=== PATIENT | male | born 1935 ===

== ENCOUNTER → 2023-05-26 09:06 | Outpatient (REF) | payer MEDICARE, OTHER, SELFPAY | LOC: RAD 09:06 | PROVIDERS: ATTENDING PHYSICIAN Internal Medicine; FAMILY PHYSICIAN Family Medicine | DX: K21.00 Gastro-esophageal reflux disease with esophagitis, without bleeding (principal) | CPT/HCPCS: 74246 ==

== ENCOUNTER 2023-08-02 12:05 | Inpatient (IN) | payer MEDICARE, OTHER, SELFPAY ==
[2023-08-02] VITALS (10 sets, daily range): BP systolic 123–159; BP diastolic 60–114; BMI 26.5; BMI 25.6
--- NOTE | 2023-08-02 09:34 | ED.GENMED ---
History of Present Illness
General
Chief Complaint: Chest Pain
Source: patient
Exam Limitations: none
Time Seen by Provider: 08/02/23 09:11
Nursing documentation reviewed up to this point in time: agreed with
Travel History
Have you had any contact with someone who has COVID-19?: No
Do you have any symptoms of coronavirus? Fever > 100 degrees, chills, cough, shortness of breath, sore throat, loss of taste or smell, muscle aches, or headache?: No
History of Present Illness
History of Present Illness:
88-year-old male with a history of Parkinson's, hypertension which is not being treated presents for symptoms of chest discomfort that feels like a tightness he describes that comes and goes spontaneously, not exertional over the last several weeks.
He said he did not want to worry anybody so he did not talk about it until today when he told his . He called his daughter, the daughter came over and gave him an 81 mg aspirin and then brought him. Patient says he has a 2 out of 10
discomfort currently. He is never had a blood clot previously. He is ambulatory
No pleuritic pain, cough, fever, chills, leg swelling, syncope, trouble sleeping
Past History
Past History
ED Past Medical History: HTN and Other (Parkinson's disease)
Patient has exhibited threatening behavior?: No
Social History
Tobacco: Non-smoker
Alcohol: None
Drug: None
Family History
Family History: Cancer (Mother had gastric cancer)
Review of Systems
Review of Systems
Allergies reviewed?: Yes
All Other Systems: Not applicable
Phy Exam
Physical Exam
Physical Exam:
GENERAL: Alert , in no apparent distress
EYE: pupils equal and reactive
NECK: Supple
ENT: o/p clr, mmm.
CARDIAC: Regular rate and rhythm . No appreciated murmur
LUNGS: Clear breath sounds bilaterally, no acute respiratory distress, no wheezes/rales/rhonchi
ABDOMEN: Soft, without focal tenderness, no r/g, no cvat, normal bowel sounds
NEUROLOGICAL: Alert and oriented, no focal neuro deficits, Parkinson's tremor
SKIN: Warm and dry, skin intact.
MUSCULOSKELETAL: No edema, well perfused. neg soumya's sign
PSYCH: Normal and appropriate interaction.
Scores
Heart Score for Chest Pain Patients
STEMI patient?: No
History: Slightly or Non-Suspicious
ECG: Nonspecific Repolarization
Age: >/= 65 years
Risk Factors: 1 or 2 Risk Factors
Troponin: </= Normal Limit
Heart Score for Chest Pain Patients: 4
Heart Score Risk: 20.3% MACE over next 6 weeks
Course
Orders/Labs/Results
Orders:
Orders
08/02/23 08:20
ECG [Electrocardiogram (*1)] Urgent
Reason for Study: Chest Pain
08/02/23 08:21
EKG- Treatment ONCE
08/02/23 09:33
CR Chest - 2 Views Urgent
Comment:
Reason For Exam: chest tightness
08/02/23 09:37
Basic Metabolic Panel Urgent
Complete Blood Count/With Diff Urgent
NT-proBNP Urgent
Troponin I Urgent
08/02/23 10:36
CMP [Comprehensive Metabolic Panel] Urgent
08/02/23 10:48
Pantoprazole [Protonix IV] 40 mg IV NOW STA
08/02/23 11:15
Pantoprazole 80 mg/100 ml Nss [Protonix] 80 mg in 100 ml IV Q10H
08/02/23 11:32
Admit/Transfer Patient As Directed
Co-Sign Provider:
Level of Care: Inpatient admission
Assign to:: Medical/Surgical
Physician / Group: Brandon
Diagnosis: symptomatic anemia
Reason for Hospitalization: symptomatic anemia
Expected length of stay greater than two midnights?: Yes
ELOS- Estimated Length of Stay in days: 4
I certify the patient meets the requirements for IP care: Yes
08/02/23 11:41
Code Status As Directed
Resuscitation Status: Do not resuscitate
Reached after discussion with pt or family/Healthcare POA: Yes
DNR Bracelet Application ONCE
08/02/23 13:19
0.9% Sodium Chloride 1000 ml [Nss] 1,000 ml IV 75 mls/hr
08/02/23 13:19
GASTROINTESTINAL CONSULT Routine
Consulting Provider: Ute Casillas
Was physician already notified: Yes
Reason for consult: GI bleed
Activity As Directed
Activity Level: Out of Bed-Early Mobility
INT (Intravenous Needle Therapy) As Directed
Comment: Place 2 IV catheters of the largest bore possible until stable
Orthostatic Vital Signs As Directed
Orthostatic VS Frequency: Now
Comment: then every four hours for twenty-four hours
Pneumatic Compression Sleeves As Directed
Type: Knee high
Vital Signs As Directed
Frequency: Per unit guidelines
DX Deep Vein Thrombosis Video Routine
08/02/23 13:49
Type And Crossmatch Urgent
H&H Q8H
08/02/23 14:00
Carbidopa/Levodopa Cr [Sinemet Cr 25-100 (Extended Release)] 2.5 tablet PO BID@0700,1400
08/02/23 20:00
Rivastigmine Tartrate [Exelon] 3 mg PO BID
08/02/23 21:00
Pantoprazole 80 mg/100 ml Nss [Protonix] 80 mg in 100 ml IV Q10H
08/02/23 21:19
H&H Q8H
08/02/23 22:00
Carbidopa/Levodopa Cr [Sinemet Cr 25-100 (Extended Release)] 1 tablet PO HS
Mirabegron Extended Release [Myrbetriq Extended Release] 50 mg PO HS
08/03/23 05:19
H&H Q8H
08/03/23 06:00
Basic Metabolic Panel IN AM
08/03/23 13:19
H&H Q8H
Abnormal Lab Results
08/02/23 08/02/23
09:37 10:36
WBC 11.2 H 10^3/uL
(4.8-10.8)
RBC 3.28 L 10^6/uL
(4.70-6.10)
Hgb 10.0 L g/dL
(13.0-18.0)
Hct 31.0 L %
(39.0-52.0)
MCV 94.5 H fL
(80.0-94.0)
MCHC 32.3 L g/dL
(33.0-37.0)
RDW 14.6 H %
(11.5-14.5)
Abs Immat Gran (auto) 0.1 H 10^3/uL
(0-0.05)
Absolute Lymphs (auto) 4.6 H 10^3/uL
(1.2-3.4)
Absolute Monos (auto) 0.9 H 10^3/uL
(0.1-0.6)
Sodium 132 L mmol/L 132 L mmol/L
(135-145) (135-145)
BUN 25 H mg/dl 23 H mg/dl
(9-20) (9-20)
Total Protein 6.0 L g/dl
(6.3-8.2)
08/02/23 09:37
08/02/23 10:36
Vital Signs
Initial and Last Documented VS:
Initial Vital Signs
Temp Pulse Resp BP Pulse Ox
97.8 F 57 20 136/60 100
08/02/23 08:34 08/02/23 08:34 08/02/23 08:34 08/02/23 08:34 08/02/23 08:34
Last Documented Vital Signs
Temp Pulse Resp BP Pulse Ox
97.8 F 56 20 124/63 100
08/02/23 08:34 08/02/23 13:30 08/02/23 08:34 08/02/23 13:00 08/02/23 13:30
MDM/Problems Addressed
Differential Diagnosis Includes:
gastritis, PUD, acs, chf
MDM/Problems Addressed:
88 y/o M with h/o parkinsons;
a few weeks or days of chest discomfort like spasms; a little sob with exertion but minimal; has been anemic as well, as outpatient; today unchagned RBBB ekg, trop 0.02, hg 10 down from 14 previously; heme POS black stool; getting protonix; has not
had EGD previously for this anemia; i suspect his chest discomfort is more GI than ACS.
pt willing to be admitted for GI consult, trop trending, protonix
*Critical Care Note
Total Time (30-74mins, 75-104mins- exclusive of procedures): Not Applicable
ED Attending Note
-
Portions of this chart may have been created with voice recognition software.� Occasional wrong word or��sound alike� substitutions may have occurred due to the inherent limitations of voice recognition software.
Discharge Plan
Departure
Patient Disposition: Admit
Date of Disposition: 08/02/23
Time of Disposition: 10:52
Admit to: Telemetry
Presentation/result/management discussed w/ accepting MD/DO: Hospitalist
Condition: Fair
Covid-19: Not Applicable
Discharge Problem:
Anemia
Interventions
Interventions:
*Risk Screen - Suicide Last Done: 08/02/23 10:00
*General Assessment Last Done: 08/02/23 10:00
*Neglect/Abuse Screening Last Done: 08/02/23 10:00
ED- Fall Risk Assessment Last Done: 08/02/23 10:00
*ED COVID-19 Vaccine History Last Done: 08/02/23 08:34
ED- Cardiac Assessment Last Done: 08/02/23 10:00
[2023-08-02 09:59] LABS: % Basophils 0.4 % (0-2); % Eosinophils 1.1 % (0-6); % Immature Granulocytes 0.5 % (0-0.5); % Lymphocytes 40.7 % (20.5-51.1); % Monocytes 8.1 % (1.7-9.3); % Neutrophils 49.2 % (42.2-75.2); Absolute Eosinophils 0.1 10^3/uL (0-0.7); Absolute Immature Granulocytes 0.1 10^3/uL (0-0.05); Absolute Lymphocytes 4.6 10^3/uL (1.2-3.4); Absolute Monocytes 0.9 10^3/uL (0.1-0.6); Absolute Neutrophils 5.5 10^3/uL (1.4-6.5); Mean Corp Hgb Conc. 32.3 g/dL (33.0-37.0); Mean Corpuscular Hgb 30.5 pg (27.0-31.0); Mean Corpuscular Volume 94.5 fL (80.0-94.0); Nucleated Red Blood Cells % 0 % (-); Platelet Count 272 10^3/uL (130-400); Red Blood Cell Count 3.28 10^6/uL (4.70-6.10); Red Cell Dist. Width 14.6 % (11.5-14.5); White Blood Cell Count 11.2 10^3/uL (4.8-10.8)
[2023-08-02 10:23] LABS: Blood Urea Nitrogen 25 mg/dl (9-20); Calcium 8.4 mg/dl (8.4-10.2); Carbon Dioxide 26 mmol/L (22-30); Chloride 103 mmol/L (98-107); Estimated Creatinine Clearance 48 ml/min; Glucose 90 mg/dl (70-99); Sodium 132 mmol/L (135-145); eGFR > 60.00
[2023-08-02 10:25] LABS: NT-proBNP 574 pg/ml; Troponin I 0.021 ng/ml
[2023-08-02] MEDS: PROTONIX 100 IV ×2 (11:18→21:09)
[2023-08-02 11:31] LABS: ALT (SGPT) < 10 U/L (0-50); AST (SGOT) 22 U/L (17-59); Albumin 3.6 g/dl (3.5-5.0); Alkaline Phosphatase 75 U/L (38-126); Blood Urea Nitrogen 23 mg/dl (9-20); Calcium 8.6 mg/dl (8.4-10.2); Carbon Dioxide 27 mmol/L (22-30); Chloride 102 mmol/L (98-107); Estimated Creatinine Clearance 53 ml/min; Glucose 92 mg/dl (70-99); Potassium 4.2 mmol/L (3.5-5.1); Sodium 132 mmol/L (135-145); Total Bilirubin 0.3 mg/dl (0.2-1.3); eGFR > 60.00
--- NOTE | 2023-08-02 11:45 | HPS.HSE ---
Family Physician
-
Family Physician: Jeff Salinas
Chief Complaint
-
Fatigue and chest discomfort
History of Present Illness
88-year-old male with history of Parkinson disease and no known coronary artery disease, brought into the hospital by the family for evaluation of feeling fatigue and tired and chest tightness which is intermittent, some degree of cognitive
dysfunction family at the bedside provide more information, admit the spasms started in upper abdomen and radiated to upper chest, No radiation or relieving aggravating factor, usually lasted very short Mild in nature worse when he eats some time
and associated with nausea and poor appetite but no vomiting, family does not think he pays attention to his bowel movement or colors, and the family does not know what color his stool.
Currently calm and comfortable, denies any particular complaint.
Workup in the ER showed hemoglobin trended down from more than 13 and today is 10 and his occult blood stool was positive, no NSAID intake.
No hematemesis, no fresh rectal bleed. No shortness of breath or sweating all fever or chill.
Medical History
Past Medical History
Past Medical History: Reports Other
Additional Past Medical History:
Past medical history Reviewed:
History of Parkinson disease
Urinary incontinence
History of lymphoma.
Social history: Lives at home with the family, no smoking alcohol use.
Family history: Reviewed and noncontributory
Past Surgical History: Reports Other
Social History
Alcohol: Other
Family History
Family History: Other
Allergies / Home Medications
Allergies reflects when Allergies were last updated in [facility].
Home Medications with original date entered in [facility]
Allergy/Medication List:
Allergies
Allergy/AdvReac Type Severity Reaction Status Date / Time
Penicillins Allergy Rash Verified 08/02/23 08:35
Home Medications
carbidopa ER 25 mg-levodopa 100 mg tablet,extended release 1 tab PO HS 08/02/23
carbidopa ER 25 mg-levodopa 100 mg tablet,extended release 2.5 tab PO BID@0700,1400 08/02/23
cholecalciferol (vitamin D3) 50 mcg (2,000 unit) tablet (Vitamin D3) 50 mcg PO DAILY 08/02/23
cyanocobalamin (vitamin B-12) 2,500 mcg sublingual tablet (Vitamin B-12) 2,500 mcg sublingual DAILY 08/02/23
esomeprazole magnesium 40 mg capsule,delayed release 40 mg PO DAILY 08/02/23
ferrous gluconate 324 mg (38 mg iron) tablet 324 mg PO DAILY 08/02/23
mirabegron 50 mg tablet,extended release 24 hr (Myrbetriq) 50 mg PO HS 08/02/23
rivastigmine tartrate 3 mg capsule 3 mg PO BID 08/02/23
Review of Systems
-
A 12 point ROS was completed and negative except as noted: Yes
Physical Exam
Vital Signs
Vital Signs
Temp Pulse Resp BP Pulse Ox
97.8 F 61 20 159/75 99
08/02/23 08:34 08/02/23 11:15 08/02/23 08:34 08/02/23 11:02 08/02/23 11:15
Physical exam:
General: Pale looking awake, alert and oriented x2, pleasantly confused, does not follows command fully, speaks in low tone of voice, not in distress.
HEENT: No active discharge, ecchymosis or bruising, moist lips, tongue and mucous membrane.
Eyes: No discharge or red conjunctiva, no nystagmus, pupils are reactive and equal
Neck:Supple, no JVD no bruit no goiter.
Respiratory: Normal AP contour and diameter, normal chest wall movement, normal respiratory effort, no respiratory distress,
Lungs: Good air entry bilaterally, no wheezing or rhonchi, no rales or crackles
Heart: S1, S2 regular, normal rate, no added sound.
Gastrointestinal: Positive bowel sounds, soft, nontender, no guarding or rigidity or organomegaly
Musculoskeletal: , no chest wall abnormality or tenderness. All joints and extremities have good range of motion, no muscle tenderness or any joint swelling or tenderness.
Extremities: No pitting edema, good peripheral pulses, good range of motion
Skin: Warm and dry, no ulceration, normal color.
Neurological: Awake, alert and oriented x2, good muscle tone, some degree of cognitive dysfunction appreciated, speaks in low tone voice
Physical Exam
General: Other
Laboratory Results
-
08/02/23 09:37
08/02/23 10:36
Laboratory Results
Total Bilirubin 0.3 mg/dl (0.2-1.3) 08/02/23 10:36
AST 22 U/L (17-59) 08/02/23 10:36
ALT < 10 U/L (0-50) 08/02/23 10:36
Alkaline Phosphatase 75 U/L (38-126) 08/02/23 10:36
Troponin I 0.021 ng/ml 08/02/23 09:37
Chest x-ray:No acute cardiopulmonary process.
EKG sinus bradycardia rate of, physical AV block SC 240, QTc 481, right bundle branch block with ventricular hypertrophy.
Left axis deviation, slow progression of the R wave in septal leads.
Data Reviewed
-
Diagnostic Radiology: Image Personally Visualized and interpreted, Discussed with Patient and Discussed with Family
Medical Tests (Nuc Med, Echo, EKG etc): Image Personally Visualized and interpreted, Discussed with Patient and Discussed with Family
Lab Data: Labs Reviewed by me and Discussed with Patient
Old Records: Reviewed
Impression/Plan
-
IMPRESSION:
88-year-old male brought to the hospital having lower chest and upper epigastric area pain and spasm lasting shorter., And hemoglobin trend down from 2 years ago from 10-4, occult blood stool was positive in the ER.
Epigastric and lower chest pain and spasm, possible upper GI related versus occult blood while cardiac causes may need to be considered to rule out the, doubt a pulm embolism as heart rate is low normal and there is no hypoxia.
GI bleed,
Blood loss anemia, likely from upper GI
Parkinson disease
Hyponatremia sodium 132
PLAN:
Full liquid diet and n.p.o. after midnight
GI consult
Monitor H&H
Protonix drip ordered
Defer further workup to GI
Check iron panel B12 and folic acid
Further age and comorbidities, coronary artery disease could be a possibility.
communication consultant
Follow cardiac enzyme
Cardiology consult.
hold aspirin because of GI bleed.
Continue medication, hold all vitamins supplement
All discussed with the patient and the family
CODE STATUS full code
DVT prophylaxis SCD
[2023-08-02 14:07] LABS: Hematocrit 29.1 % (39.0-52.0); Hemoglobin 9.2 g/dL (13.0-18.0)
[2023-08-02] MEDS: SINEMET CR 25-100 (EXTENDED RELEASE) 2.5 TABLET PO (14:12)
[2023-08-02] MEDS: NSS 1000 IV (14:12)
--- NOTE | 2023-08-02 15:48 | CON.CAR ---
Addendum entered and electronically signed by Rowdy Diaz MD 08/02/23 16:29:
I saw and examined the patient.
The STATION[employer]ER FIREMAN's note was reviewed and I agree with the note.
Comment: 88M with atypical CP, normal troponin, and unexciting EKG.
CP
- Anemia and heme positive stools -> no ASA
- check lipids in AM
- at most, I would consider risk stratifying stress test if his CP persists after anemia is corrected/GERD treated. Ideally, we could manage his symptoms - if cardiac - with medication.
Original Note:
Consultation
Consultation Request
Date/Time Consultation Requested: 08/02/238
Date/Time Consultation Performed: 08/02/230
Requesting Provider: Dr. Taylor
Performing Provider: Annette CRISOSTOMO for Dr. Diaz
Reason for Consultation: chest discomfort
Medical History
-
Chief Complaint: chest discomfort
History of Present Illness:
88 y/o male with Parkinson's disease, GERD, HTN (per family- not on meds), and HLD (per family- not on meds) who is here for intermittent chest/epigastric tightness and fatigue. He does seem to notice his symptoms more with walking. Seem to have
been around for about two weeks. EKG and trop unremarkable. He is seen to have anemia with heme+ stools and was started on IV PPI with GI consultation. He is in no distress at the time of my assessment.
Past Medical History
Past Medical History: HTN, Hypercholesterolemia and Other (Parkinson's disease)
Social History
Tobacco: Non-Smoker
Alcohol: None
Family History
Family History: Reviewed & Not Pertinent
Allergies / Home Medications
Allergy/AdvReac Type Severity Reaction Status Date / Time
Penicillins Allergy Rash Verified 08/02/23 08:35
�Medication �Instructions �Recorded �Confirmed �Type
carbidopa ER 25 mg-levodopa 100 mg 1 tab PO HS 08/02/23 08/02/23 History
tablet,extended release
carbidopa ER 25 mg-levodopa 100 mg 2.5 tab PO BID@0700,1400 08/02/23 08/02/23 History
tablet,extended release
cholecalciferol (vitamin D3) 50 50 mcg PO DAILY 08/02/23 08/02/23 History
mcg (2,000 unit) tablet (Vitamin
D3)
cyanocobalamin (vitamin B-12) 2,500 mcg sublingual DAILY 08/02/23 08/02/23 History
2,500 mcg sublingual tablet
(Vitamin B-12)
esomeprazole magnesium 40 mg 40 mg PO DAILY 08/02/23 08/02/23 History
capsule,delayed release
ferrous gluconate 324 mg (38 mg 324 mg PO DAILY 08/02/23 08/02/23 History
iron) tablet
mirabegron 50 mg tablet,extended 50 mg PO HS 08/02/23 08/02/23 History
release 24 hr (Myrbetriq)
rivastigmine tartrate 3 mg capsule 3 mg PO BID 08/02/23 08/02/23 History
Review of Systems
-
History Source: Patient
All other systems: Negative unless noted
Constitutional: Fatigue
Cardiac: Chest Pain
Physical Exam
Vital Signs
Temp Pulse Resp BP Pulse Ox
97.8 F 60 20 135/65 99
08/02/23 08:34 08/02/23 15:15 08/02/23 08:34 08/02/23 15:00 08/02/23 15:15
Lab Results
08/02/23 10:36
Troponin I 0.021 ng/ml 08/02/23 09:37
Aes-V-Dhxryzjauun Pept 574 pg/ml 08/02/23 09:37
Physical Exam
General: Well Developed, Well Nourished and No Apparent Distress
HEENT: Normocephalic and Anicteric
Respiratory: Clear and Non Labored Respirations
Cardiac: Regular Rhythm
Skin: Warm and Dry
Neuro: AO x 3
Psych: Calm
Impression / Plan
-
Anemia:
-heme+ stool
-GI consulted
-IV PPI started
-follow hgb
Chest discomfort:
-none currently
-first trop unremarkable; trend. EKG unremarkable.
-more likely GI etiology in this patient with worsening anemia, and heme + stool as above
Parkinson's disease:
-on medical therapy
GERD:
-on PPI as OP
HTN:
-diagnosis per son, but not on meds
-BP's okay
Data Reviewed
-
EKG: Tracing Personally Visualized and interpreted (SB with 1st degree AVB, RBBB)
Radiology: Report Reviewed by me (CXR no acute CP process)
Labs: Labs Reviewed by me
--- NOTE | 2023-08-02 15:59 | CON.GI ---
Consultation
-
Date/Time Consultation Requested: 08/02/2023
Date/Time Consultation Performed: 08/02/2023
Requesting Provider: Hospitalist
Performing Provider: Dr. Casillas
Reason for Consultation: anemia
Medical History
Chief Complaint / HPI
Chief Complaint: Fatigue and chest discomfort
History of Present Illness:
Abdirashid is an 88-year-old male with history of Parkinson's disease brought to the hospital by the family after patient has been feeling fatigue and having intermittent chest tightness. He describes the chest tightness is ongoing for couple weeks now
and generally occurs if he goes for long walks. If he does not go for a walk he does not feel it. He denies any association with eating or drinking but his son who is at bedside said after his walks is when he eats. The patient denies any
dysphagia to liquids or solids. Denies any heartburn and is taking the Nexium. His daughter is also on the phone who is a pharmacist and knows his medications well. In terms of anemia he has been seen by a ui lead developer, Dr. Sebastian Vila. The
family gave me some of his labs including a hemoglobin that was 10 and May, platelets 243 and white count 10. Patient and family deny any overt bleeding but he does not necessarily look at his stools. His last colonoscopy was over 10 years
ago. He has never had an upper endoscopy that they are aware of.
He denies any nausea. But apparently did have an episode of vomiting 1 night. Currently denies nausea vomiting. No abdominal pain. Denies constipation or diarrhea. He generally moves his bowels daily to every other day.
In the ER he has black heme positive stool and is also on iron.
Family deny any use of aspirin or NSAIDs
Past Medical History
Past Medical History: Other (Elevated PSA, benign tremor, lymphoma, Parkinson's)
Past Surgical History: Other (Left inguinal hernia repair with mesh in 2018)
Social History
Tobacco: Non-Smoker
Alcohol: None
Living: With Family
Employment: Retired
Family History
Family History: Cancer (Colon cancer in mother)
Allergies / Home Medications
Allergy/AdvReac Type Severity Reaction Status Date / Time
Penicillins Allergy Rash Verified 08/02/23 08:35
�Medication �Instructions �Recorded
carbidopa ER 25 mg-levodopa 100 mg 1 tab PO HS 08/02/23
tablet,extended release
carbidopa ER 25 mg-levodopa 100 mg 2.5 tab PO BID@0700,1400 08/02/23
tablet,extended release
cholecalciferol (vitamin D3) 50 50 mcg PO DAILY 08/02/23
mcg (2,000 unit) tablet (Vitamin
D3)
cyanocobalamin (vitamin B-12) 2,500 mcg sublingual DAILY 08/02/23
2,500 mcg sublingual tablet
(Vitamin B-12)
esomeprazole magnesium 40 mg 40 mg PO DAILY 08/02/23
capsule,delayed release
ferrous gluconate 324 mg (38 mg 324 mg PO DAILY 08/02/23
iron) tablet
mirabegron 50 mg tablet,extended 50 mg PO HS 08/02/23
release 24 hr (Myrbetriq)
rivastigmine tartrate 3 mg capsule 3 mg PO BID 08/02/23
Review of Systems
-
History Source: Patient and Family
Constitutional: Reports Fatigue
Respiratory: Reports No Symptoms
Abdomen/GI: Reports Pain (Squeezing lower chest pain)
Skin: Reports No Symptoms
Hematologic/Lymphatic: Reports No Symptoms
Vital Signs
Temp Pulse Resp BP Pulse Ox
97.8 F 60 20 135/65 99
08/02/23 08:34 08/02/23 15:15 08/02/23 08:34 08/02/23 15:00 08/02/23 15:15
Physical Exam
Exam
General: No Apparent Distress and Comfortable
HEENT: Anicteric
Respiratory: Clear
Cardiac: S1/S2
GI: Soft and Non Tender
Neuro: Awake and Alert
Psych: Calm
Results
WBC 11.2 10^3/uL (4.8-10.8) H 08/02/23 09:37
Hgb 9.2 g/dL (13.0-18.0) L 08/02/23 13:49
Hct 29.1 % (39.0-52.0) L 08/02/23 13:49
MCV 94.5 fL (80.0-94.0) H 08/02/23 09:37
Plt Count 272 10^3/uL (130-400) 08/02/23 09:37
Absolute Neuts (auto) 5.5 10^3/uL (1.4-6.5) 08/02/23 09:37
Sodium 132 mmol/L (135-145) L 08/02/23 10:36
Potassium 4.2 mmol/L (3.5-5.1) 08/02/23 10:36
Chloride 102 mmol/L (98-107) 08/02/23 10:36
Carbon Dioxide 27 mmol/L (22-30) 08/02/23 10:36
BUN 23 mg/dl (9-20) H 08/02/23 10:36
Creatinine 1.0 mg/dL (0.7-1.3) 08/02/23 10:36
Calcium 8.6 mg/dl (8.4-10.2) 08/02/23 10:36
Total Bilirubin 0.3 mg/dl (0.2-1.3) 08/02/23 10:36
AST 22 U/L (17-59) 08/02/23 10:36
ALT < 10 U/L (0-50) 08/02/23 10:36
Alkaline Phosphatase 75 U/L (38-126) 08/02/23 10:36
Diagnostic Image Results:
Chest x-ray 08/02/2023: No acute cardiopulmonary process
Upper GI series 05/26/2023: Half-inch barium pills initially stuck in the vallecula and precipitated no symptoms. Barium pill passed normally through the esophagus without significant delay. There was delay in initiation of swallow and there were
tertiary contractions of the esophagus during swallow. No significant reflux. No stricture, web, neoplasm, diverticulum, ulceration or inflammatory change
Prior GI Procedures: No GI procedures at [facility]
EGD: Never
Colonoscopy: Patient and family state it was over a decade ago
Assessment / Plan
-
Abdirashid is an 88-year-old male with history of questionable lymphoma, Parkinson's disease on Parkinson's medications who presents with intermittent chest discomfort with walking and macrocytic anemia. GI was consulted because he had black formed heme
positive stools in the emergency room with anemia.
# More macrocytic anemia -patient is on B12 at home and has been followed by hematology
-- I have ordered to obtain records from Dr. Sebastian Vila [phone]
-- I was able to review some of the labs over the phone with his daughter Bianca Perez [phone] (she is a pharmacist)
-- Patient has been on iron, no GI workup has been done other than a visit with Dr. Lieberman back in May
-- Patient's hemoglobin was 10 in May 2023 (saw from patient portal on phone)
# Intermittent squeezing chest discomfort with walking -troponins are normal, cardiology was not impressed with any cardiac etiology
-- Squeezing chest discomfort can sometimes be seen with tertiary contractions of the esophagus which are often prominent in patients with Parkinson's disease
-- Will proceed to endoscopy tomorrow in the setting of both his chest discomfort, black heme positive stools
I had a long conversation with the patient and both of his children. We will get hematology records, but go ahead and proceed with EGD tomorrow.
I did review the cardiac note and workup.
Total Time Spent with Patient (in minutes): 45
Data Reviewed
-
Radiology: Report Reviewed by me
Old Records: Reviewed
-
-
Thank you for consultation and allowing me to participate in the patient's care. Please call the application support administrator GI physician during the after hours with any questions or concerns.
--- NOTE | 2023-08-02 16:30 | PTCARENOTE ---
Received pt from ER. Pt awake,alert and oriented x 2-3. Confused at times, garbled speech, pt primary language ecuadorean but understands latvian. Pt has no c/o chest pain at this time. VSS, 97% on RA. Pt NSR, 1degree AV block, BBBc on tele.Family at
bedside, bed alarm placed for safety, pt has had falls at home. Pt oriented to room, call elizondo within reach, HOB elevated, plan of care ongoing.
[2023-08-02 16:54] LABS: Troponin I 0.023 ng/ml
[2023-08-02 19:03] LABS: Vitamin B12 733 pg/ml (239-931)
[2023-08-02] MEDS: EXELON 3 MG PO (21:05)
[2023-08-02] MEDS: SINEMET CR 25-100 (EXTENDED RELEASE) 1 TABLET PO (21:06)
[2023-08-02] MEDS: MYRBETRIQ EXTENDED RELEASE 50 MG PO (21:07)
[2023-08-02 21:52] LABS: Hematocrit 28.7 % (39.0-52.0); Hemoglobin 9.4 g/dL (13.0-18.0)
[2023-08-03] VITALS (11 sets, daily range): BP systolic 18–165; BP diastolic 55–85; PULSE 59–67
[2023-08-03 00:23] LABS: Troponin I 0.022 ng/ml
[2023-08-03] MEDS: NSS 1000 IV (03:01)
[2023-08-03] MEDS: SINEMET CR 25-100 (EXTENDED RELEASE) 2.5 TABLET PO ×2 (06:01→14:50)
[2023-08-03] MEDS: PROTONIX 100 IV ×2 (06:01→18:37)
[2023-08-03 06:09] LABS: Hematocrit 29.1 % (39.0-52.0); Hemoglobin 9.2 g/dL (13.0-18.0)
[2023-08-03 06:30] LABS: Troponin I 0.026 ng/ml
[2023-08-03 06:44] LABS: Blood Urea Nitrogen 18 mg/dl (9-20); Calcium 8.4 mg/dl (8.4-10.2); Carbon Dioxide 27 mmol/L (22-30); Chloride 106 mmol/L (98-107); Estimated Creatinine Clearance 53 ml/min; Glucose 92 mg/dl (70-99); Iron 32 ug/dl (49-181); Potassium 4.1 mmol/L (3.5-5.1); Sodium 134 mmol/L (135-145); eGFR > 60.00
[2023-08-03 06:54] LABS: Percent Saturation 10 % (20-50); Total Iron Binding Capacity 297 ug/dl (261-462)
[2023-08-03 07:06] LABS: TSH 2.79 uIU/ml (0.47-4.68)
[2023-08-03 07:10] LABS: Ferritin 12.2 ng/ml (17.9-464.0)
[2023-08-03 07:42] LABS: Folate 8.8 ng/ml (2.76-20); Vitamin B12 757 pg/ml (239-931)
--- NOTE | 2023-08-03 11:10 | W.PN.CD ---
Addendum entered and electronically signed by Rowdy Diaz MD 08/03/23 15:06:
I saw and examined the patient.
The CAR SALES REPRESENTATIVE's note was reviewed and I agree with the note.
Comment: 88M with chest pain. EKG OK and troponin unexciting. ECHO is reassuring. GI findings noted
- no further cardiac workup is anticipated and I will sign off
- Follow up with us prn
Original Note:
Today's Communication / Plan
-
-Echo today
-checking lipids
-GI work-up as planned
Impression / Plan
-
Assessment/Plan: 88 y/o male with Parkinson's disease, GERD, HTN (per family- not on meds), and HLD (per family- not on meds) who presented with chest discomfort. EKG and trop unremarkable. Anemia and heme+ stool noted and he was placed on PPI, and
is now s/p endoscopy. He is seen to have anemia with heme+ stools and was started on IV PPI with GI consultation. He is in no distress at the time of my assessment.
Anemia, heme + stool:
-hgb stabilized- follow
-GI consulted and now s/p endoscopy with findings as follows: small hiatal hernia, atrophic, granular, nodular and texture changed mucosa in the antrum- biopsied. Partially obstructing gastric ulcer with an adherent clot (biopsied), the ulcer and
inflammation was practically obstructing and was difficult to traverse into the duodenum. The bulb was involved as well. Concern for neoplasm- Multiple biopsies taken. CT chest/abdomen/pelvis recommended.
-on PPI IV
Chest discomfort:
-none currently
-EKG, trop unremarkable
-more likely GI etiology related to above
-checking echo
-no ASA at this time with above issues. Added lipids for AM.
Parkinson's disease:
-on medical therapy
GERD:
-on PPI as OP- IV here
HTN:
-diagnosis per son, but not on meds
-BP's okay
Physical Exam
Vital Signs/Labs
Vital Signs
Temp Pulse Resp BP Pulse Ox
97.5 F 65 12 165/83 98
08/03/23 10:30 08/03/23 10:30 08/03/23 10:30 08/03/23 10:30 08/03/23 10:30
08/02/23 08/03/23 08/04/23
06:59 06:59 06:59
Actual Weight 80.796 kg
08/03/23 13:19
08/03/23 05:54
TSH 2.79 uIU/ml (0.47-4.68) 08/03/23 05:54
08/02/23
09:37
Ptp-W-Xnwthsembvr Pept 574
LAB Results
08/02/23 08/02/23 08/02/23
09:37 16:22 23:52
Troponin I 0.021 0.023 0.022
08/03/23
05:54
Troponin I 0.026
Physical Exam
Constitutional: No acute distress
EENT: Anicteric
Cardiovascular: Rhythm & rate is regular
Respiratory: Respiratory effort normal and Lungs clear to auscul.
GI: Soft, Non tender and Normal bowel sounds
Neuro/Psych: Alert and Oriented
Other: Skin (warm and dry)
Data Reviewed
-
Date of Service: August 03, 2023
EKG: Other (SR)
[2023-08-03] MEDS: OMNIPAQUE 50 ML PO (11:14)
[2023-08-03] MEDS: EXELON 3 MG PO ×2 (11:14→19:57)
--- NOTE | 2023-08-03 14:14 | W.PN.HOSP.TC ---
Today's Communication/Plan
-
All discussed with the patient and his son at the bedside
Discussed with the nurse
Assessment / Plan
Assessment / Plan
Physical exam:
General: Pale looking awake, alert and oriented x2, pleasantly confused, does not follows command fully, speaks in low tone of voice, not in distress.
HEENT: No active discharge, ecchymosis or bruising, moist lips, tongue and mucous membrane.
Eyes: No discharge or red conjunctiva, no nystagmus, pupils are reactive and equal
Neck:Supple, no JVD no bruit no goiter.
Respiratory: Normal AP contour and diameter, normal chest wall movement, normal respiratory effort, no respiratory distress,
Lungs: Good air entry bilaterally, no wheezing or rhonchi, no rales or crackles
Heart: S1, S2 regular, normal rate, no added sound.
Gastrointestinal: Positive bowel sounds, soft, nontender, no guarding or rigidity or organomegaly
Musculoskeletal: , no chest wall abnormality or tenderness. All joints and extremities have good range of motion, no muscle tenderness or any joint swelling or tenderness.
Extremities: No pitting edema, good peripheral pulses, good range of motion
Skin: Warm and dry, no ulceration, normal color.
Neurological: Awake, alert and oriented x2, good muscle tone, some degree of cognitive dysfunction appreciated, speaks in low tone voice
Assessment and plan:
88-year-old male brought to the hospital having lower chest and upper epigastric area pain and spasm lasting shorter., And hemoglobin trend down from 2 years ago from 10-4, occult blood stool was positive in the ER.
Epigastric and lower chest pain and spasm, possible upper GI related, likely secondary to gastric ulcer disease with GI concerning for malignancy, doubted cardiac or pulmonary causes.
Hypoxia.
GI bleed, likely secondary to partial obstructing ulcer disease. Endoscopy
Partially obstructing gastric ulcer, seen on EGD concerning for malignancy
Blood loss anemia, likely from upper GI, according to GI is hemoglobin around May was 12 and 2
Hemoglobin trending down
Iron deficiency
Parkinson disease
Hyponatremia sodium 132
Plans
Status post EGD, report is reviewed
GI input appreciated
Continue protonic drips
Monitor H&H
Start IV iron for now as patient needs IV iron regularly, B12 and folic acid in a good range.
Finding discussed with the family by GI and by me.
Cardiology input appreciated
hold aspirin because of GI bleed.
Continue medication, hold all vitamins supplement
Continue Parkinson medication.
Recheck labs.
All discussed with the patient and the family
CODE STATUS full code
DVT prophylaxis SCD
Anticipated Discharge: > 48 hours
Subjective/Interval History
-
Date of Service: August 03, 2023
Objective Data
-
Labs:
Laboratory Results
08/03/23 08/03/23
05:54 13:19
Hgb 9.2 L Cancelled
Hct 29.1 L Cancelled
Sodium 134 L
Potassium 4.1
Chloride 106
Carbon Dioxide 27
BUN 18
Creatinine 1.0
Glucose 92
Calcium 8.4
Vital Signs:
Vital Signs
Temp Pulse Resp BP Pulse Ox
97.5 F 59 18 158/78 97
08/03/23 11:53 08/03/23 11:53 08/03/23 11:53 08/03/23 11:53 08/03/23 11:53
I&O
08/02/23 08/03/23 08/04/23
07:59 07:59 07:59
Intake Total 960 / 960
Output Total 1680 / 1680
Balance -720 / -720
--- NOTE | 2023-08-03 15:00 | PTCARENOTE ---
Pt having periods of confusion, anxiety and slight agitation. Reoriented to surroundings, pt does better with family at bedside, VSS provider made aware, bed alarm in place, call elizondo within reach, plan of care ongoing.
[2023-08-03] MEDS: FERRLECIT 110 MG IV (15:17)
--- NOTE | 2023-08-03 16:37 | CM ---
Alert awake [place] oriented patient who lives with his [place] and 24 hour nurse healthcare manager.Spoke with son at [facility].They live in a condo with no steps and bed and bathroom on first floor.He is assisted in all activities of daily living.He was offered VN
Son will let CM know if VN needed
Sandra VN hx / No SNF history
Pharmacy [facility]
PCP DR Salinas
PLAN Home with possible VN if requested
[2023-08-03] MEDS: SINEMET CR 25-100 (EXTENDED RELEASE) 1 TABLET PO (19:57)
[2023-08-03] MEDS: MYRBETRIQ EXTENDED RELEASE 50 MG PO (19:58)
[2023-08-04] VITALS (8 sets, daily range): BP systolic 83–146; BP diastolic 40–74; PULSE 65–74; O2SAT 100; BMI 25.4
[2023-08-04] MEDS: PROTONIX 100 IV ×2 (04:51→12:28)
[2023-08-04] MEDS: SINEMET CR 25-100 (EXTENDED RELEASE) 2.5 TABLET PO ×2 (06:04→13:18)
[2023-08-04] MEDS: EXELON 3 MG PO (08:17)
[2023-08-04 08:30] LABS: HDL Cholesterol 47 mg/dl; LDL Cholesterol, Calculated 104 mg/dl; Total Cholesterol 167 mg/dl (50-199); Triglyceride 84 mg/dl (10-149); Very Low Density Lipoprotein 16 mg/dl (0-30)
--- NOTE | 2023-08-04 08:50 | W.PN.GI.CBS2 ---
Addendum entered and electronically signed by Amalia Escalante Do, MD 08/04/23 13:37:
I saw and examined the patient.
The BOX SEALING MACHINE CATCHER's note was reviewed and I agree with the note.
Comment: Ate 100% of lunch per RN. Denies abd pain. Exam VSS NTTP mildly confused but conversant. Labs reviewed only lipid panel no Hbg.
Recommendations:
- C/w Protonix gtt x72hrs
- H/H ordered for tomorrow
- Await results of EGD path results. Dr Casillas with call with results
- Our office will arrange OP FU in 3-[address] Lieberman.
- Please d/c on Protonix 40mg BID x12 wks and plans for repeat EGD in 12 wks to document ulcer healing
- Avoid all nsaids
GI will sign off please call with questions. Daughter updated bedside
Original Note:
Today's Communication / Plan
-
Await EGD biopsy
CT as noted
despite difficulty with passing scope patient is tolerating diet and eating entire breakfast this am
will send message to office to arrange GI follow as will need repeat EGD to reassess ulcer
cont diet
remains on PPI GTT
cont IV iron
Assessment / Plan
-
Abdirashid is an 88-year-old male with history of questionable lymphoma, Parkinson's disease on Parkinson's medications who presents with intermittent chest discomfort with walking and macrocytic anemia. GI was consulted because he had black formed heme
positive stools in the emergency room with anemia. EGD with concern for partially obstructing gastric ulcer with clot and inflammation with difficulty to traverse duodenum concern for neoplasm.
per Dr. Casillas
-- awaiting records from Dr. Sebastian Vila [phone]
--labs reviewed with daughter Bianca Perez [phone] (she is a pharmacist)
-- Patient has been on iron, no GI workup has been done other than a visit with Dr. Bohning back in May prior to admission
-- Patient's hemoglobin was 10 in May 2023 (saw from patient portal on phone)
08/02 EGD- Small hiatal hernia. - Atrophic, granular, nodular and texture changed mucosa in the antrum. Biopsied.
- Partially obstructing gastric ulcer with an adherent clot (Collin Class IIb. Biopsied - The ulcer and inflammation was practically
obstructing and was difficult to traverse into the duodenum. The bulb was involved as well. Concern for
neoplasm. - Multiple biopsies taken- The 2nd portion of the duodenum was normal
08/02 CT a/p
1. Gastric evaluation somewhat limited by underdistention. There is abnormal concentric mural thickening at the level of the duodenal bulb. As above, very small focus of enteric contrast within the wall on delayed phase images, suspicious for
ulceration. Neoplastic etiology cannot be excluded by this examination. No other gastric or duodenal lesion is identified at CT.
2. Mild cardiomegaly.
3. Hepatic fatty infiltration. Small benign hepatic hemangioma and probable hemangiomas as above.
-macrocytic anemia with current B12 supplementation follows with heme OP follow
-black heme + stools
- partially obstructing gastric ulcer with clot and inflammation with difficulty to traverse duodenum concern for neoplasm
-CT abnormal concentric mural thickening of duodenal bulb with concern for ulcer neoplasm not excluded on study
-chest discomfort
PLAN:
Await EGD biopsy
CT as noted
despite difficulty with passing scope patient is tolerating diet and eating entire breakfast this am
will send message to office to arrange GI follow as will need repeat EGD to reassess ulcer
cont diet
remains on PPI GTT
cont IV iron
Subjective
Subjective
Date of Service: August 04, 2023
low residue diet, no stools
Objective
Data Reviewed
Laboratory Data:
Laboratory Results
08/03/23 13:19
08/03/23 05:54
Laboratory Results
Total Bilirubin 0.3 mg/dl (0.2-1.3) 08/02/23 10:36
AST 22 U/L (17-59) 08/02/23 10:36
ALT < 10 U/L (0-50) 08/02/23 10:36
Alkaline Phosphatase 75 U/L (38-126) 08/02/23 10:36
Vital Signs and I&O:
Vital Signs
Temp Pulse Resp BP Pulse Ox
97.9 F 65 16 146/74 95
08/04/23 08:36 08/04/23 08:36 08/04/23 08:36 08/04/23 08:36 08/04/23 08:36
I&O
08/03/23 08/04/23 08/05/23
06:59 06:59 06:59
Intake Total 960 / 960 1790 / 1790
Output Total 1680 / 1680 1570 / 1570
Balance -720 / -720 220 / 220
Physical Exam
Physical Exam
HEENT: Anicteric and Moist mucous membranes
Cardiology: Normal Sinus Rhythm
Pulmonary: Clear
GI: Soft, Distended (mild distention ) and Non Tender
Extremities: No Edema
Neuro: Other (answering most question)
--- NOTE | 2023-08-04 11:02 | CM ---
Requested PT OT order from .
Son supportive.
He has 24 hour care givers for him and his in home.
Offered VN to son for dad.
son will get back to if VN wanted at md.
PLAN Home with possible VN if requested
[2023-08-04] MEDS: FERRLECIT 110 MG IV (12:16)
--- NOTE | 2023-08-04 13:38 | W.PN.UPDATE ---
Update Note
Progress Note Update
Billing purposes
--- NOTE | 2023-08-04 14:18 | PN.CDI ---
CDI
- -
CDI:
Physician Documentation Request
Admit Date: 08/02/23 12:05
Dear Doctor Brandon,
Please review the following and provide your response in the progress notes.
Clinical Indicators:
Pt admitted with GI bleed/ Anemia 2/2 gastric ulcer possibly gastric malignancy found on EGD
Documented per ED records, ' hg 10 down from 14 previously; heme POS black stool...'
Documented throughout the record,' Blood loss anemia, likely from upper GI, according to GI is hemoglobin around May was 12 and 2 Hemoglobin trending down...'
Clarify which of the following accurately represents the acuity of the ( Blood loss anemia).
Acute
Acute on Chronic
Chronic
Other
Use of terms such as suspected, likely, concern for, or probable (associated with a specific diagnosis that is being evaluated, monitored, or treated as if it exists) are acceptable and can be coded in the inpatient setting, when documented at the
time of discharge.
Thank you,
Karuna Pate RN
CDI Specialist
[place] [facility]
Please use your independent medical judgment in providing your response.
--- NOTE | 2023-08-04 14:21 | PN.CDI ---
CDI
- -
CDI:
Physician Documentation Request
Admit Date: 08/02/23 12:05
Dear Doctor Sonja,
Please review the following and provide your response in the progress notes.
Clinical Indicators:
Pt admitted with GI bleed/ Anemia 2/2 gastric ulcer possibly gastric malignancy found on EGD
Documented per EGD report, ' One partially obstructing (about 80% obstructed) oozing cratered gastric ulcer of significant severity with an adherent clot (Collin Class IIb) was found in the prepyloric region of the stomach and at the
pylorus.The lesion was 30 mm in largest dimension. ...Chronic or unspecified gastric ulcer with hemorrhage...'
Clarify which of the following accurately represents the suspected acuity of the Gastric ulcer
Acute
Chronic
Acute on Chronic
Other
Use of terms such as suspected, likely, concern for, or probable (associated with a specific diagnosis that is being evaluated, monitored, or treated as if it exists) are acceptable and can be coded in the inpatient setting, when documented at the
time of discharge.
Thank you,
Karuna Pate RN
CDI Specialist
[place] [facility]
Please use your independent medical judgment in providing your response.
--- NOTE | 2023-08-04 15:49 | W.PN.UPDATE ---
Update Note
Progress Note Update
Path confirms gastric ca
Above d/w patient's son Earl via phone and Dr Young. Protonix gtt stopped
Family wants to take him home today which is reasonable. I personally messaged oncology to expediate OP follow up
Ok to d/c on protonix daily basis.
--- NOTE | 2023-08-04 17:31 | W.DS.TRANS ---
DC Summary - Objects Conservator
-
Discharge Instructions:
Discharge Diagnosis/Procedures Gastric carcinoma.
Anemia
Diet Low Residue
Instructions:
Stand-Alone Forms:
Changes to Home Medications: No
Discharge Medications:
DC Medications w/original date entered in How do you roll?
carbidopa ER 25 mg-levodopa 100 mg tablet,extended release 1 tab PO HS Neurological Condition 08/02/23
carbidopa ER 25 mg-levodopa 100 mg tablet,extended release 2.5 tab PO BID@0700,1400 Neurological Condition 08/02/23
cholecalciferol (vitamin D3) 50 mcg (2,000 unit) tablet (Vitamin D3) 50 mcg PO DAILY Supplement 08/02/23
cyanocobalamin (vitamin B-12) 2,500 mcg sublingual tablet (Vitamin B-12) 2,500 mcg sublingual DAILY Supplement 08/02/23
esomeprazole magnesium 40 mg capsule,delayed release 40 mg PO DAILY Gastrointestinal Issue 08/02/23
ferrous gluconate 324 mg (38 mg iron) tablet 324 mg PO DAILY Supplement 08/02/23
mirabegron 50 mg tablet,extended release 24 hr (Myrbetriq) 50 mg PO HS Urinary Issue 08/02/23
rivastigmine tartrate 3 mg capsule 3 mg PO BID Neurological Condition 08/02/23
Home Medication Changes
Pending Results: No
--- NOTE | 2023-08-07 11:25 | W.PN.UPDATE ---
Update Note
Progress Note Update
for CDI question - I am unable to determine the chronicity of the ulcer at the time of the endoscopy since he has never had an EGD before. So, 'unknown chronicity'
== END 2023-08-04 18:57 | disposition home or self-care (01) | DRG 374 ==
LOC: 4 EAST ACU 12:05
PROVIDERS: Emergency Medicine; Nurse Practitioner; Physician Assistant; ADMITTING PHYSICIAN Internal Medicine; ATTENDING PHYSICIAN Internal Medicine; CONSULT PHYSICIAN Internal Medicine; CONSULT PHYSICIAN Internal Medicine Cardiovascular Disease; EMERGENCY PHYSICIAN Student in an Organized Health Care Education/Training Program; FAMILY PHYSICIAN Family Medicine
PROC: 0DB68ZX Excision of Stomach, Via Natural or Artificial Opening Endoscopic, Diagnostic (ICD-10-PCS; 2023-08-03)
DX: C16.4 Malignant neoplasm of pylorus (principal); K25.4 Chronic or unspecified gastric ulcer with hemorrhage; E87.1 Hypo-osmolality and hyponatremia; D62 Acute posthemorrhagic anemia; K44.9 Diaphragmatic hernia without obstruction or gangrene; G20.A1 Parkinson's disease without dyskinesia, without mention of fluctuations; I10 Essential (primary) hypertension; K21.9 Gastro-esophageal reflux disease without esophagitis; R07.89 Other chest pain; E78.00 Pure hypercholesterolemia, unspecified; C88.0 Waldenstrom macroglobulinemia; D53.9 Nutritional anemia, unspecified; Z66 Do not resuscitate; Z79.899 Other long term (current) drug therapy; Z85.72 Personal history of non-Hodgkin lymphomas
CPT/HCPCS: 88305; 71046; 71260; 74160; 80048; 80053; 80061; 82607; 82728; 82746; 83540; 83550; 83880; 84443; 84484; 85014; 85018; 85025; 86850; 86900; 86901; 88342; 88360; 93005; 93306; 96365; 96366; 96376; 97162; 97166; 99285; J2916; Q9967

== ENCOUNTER 2023-11-24 16:15 | Inpatient (IN) | payer MEDICARE, OTHER, SELFPAY ==
[2023-11-24] VITALS (13 sets, daily range): BP systolic 98–159; BP diastolic 63–83; BMI 25.6
[2023-11-24 10:47] LABS: % Basophils 0.3 % (0-2); % Eosinophils 0.2 % (0-6); % Immature Granulocytes 0.4 % (0-0.5); % Lymphocytes 25.2 % (20.5-51.1); % Monocytes 14.4 % (1.7-9.3); % Neutrophils 59.5 % (42.2-75.2); Absolute Immature Granulocytes 0.1 10^3/uL (0-0.05); Absolute Lymphocytes 2.9 10^3/uL (1.2-3.4); Absolute Monocytes 1.7 10^3/uL (0.1-0.6); Absolute Neutrophils 6.9 10^3/uL (1.4-6.5); Hematocrit 36.5 % (39.0-52.0); Hemoglobin 12.1 g/dL (13.0-18.0); Mean Corp Hgb Conc. 33.2 g/dL (33.0-37.0); Mean Corpuscular Hgb 27.6 pg (27.0-31.0); Mean Corpuscular Volume 83.3 fL (80.0-94.0); Mean Platelet Volume 8.9 fL (7.4-10.4); Nucleated Red Blood Cells % 0 % (-); Platelet Count 229 10^3/uL (130-400); Red Blood Cell Count 4.38 10^6/uL (4.70-6.10); Red Cell Dist. Width 15.9 % (11.5-14.5); White Blood Cell Count 11.6 10^3/uL (4.8-10.8)
[2023-11-24 11:03] LABS: ALT (SGPT) < 10 U/L (0-50); AST (SGOT) 30 U/L (17-59); Albumin 3.6 g/dl (3.5-5.0); Alkaline Phosphatase 76 U/L (38-126); Blood Urea Nitrogen 25 mg/dl (9-20); Calcium 9.1 mg/dl (8.4-10.2); Carbon Dioxide 28 mmol/L (22-30); Chloride 102 mmol/L (98-107); Glucose 104 mg/dl (70-99); Potassium 4.3 mmol/L (3.5-5.1); Sodium 135 mmol/L (135-145); Total Bilirubin 0.8 mg/dl (0.2-1.3); Total Protein 6.2 g/dl (6.3-8.2); eGFR > 60.00
--- NOTE | 2023-11-24 11:19 | ED.GENMED ---
History of Present Illness
General
Chief Complaint: Fall
Source: patient and family
Time Seen by Provider: 11/24/23 11:07
History of Present Illness
History of Present Illness:
88yoM with a history of Parkinson's disease and stomach cancer on immunotherapy presenting via EMS with his daughter for evaluation after a fall. Patient was walking with his walker yesterday evening around dinnertime when he fell. He denies any
prodromal dizziness or symptoms. His daughter states he 'freezes' from time to time with his Parkinson's and she believes that this is what caused his fall. Patient denies any head strike or LOC. His neighbor helped him into bed after the fall. He
was unable to ambulate this morning and was having right hip pain so EMS was called. Patient's right hip was shortened and externally rotated prehospital. He has no other complaints currently. No thinners.
Past History
Past History
ED Past Medical History: HTN and Other (Parkinson's disease)
Patient has exhibited threatening behavior?: No
Social History
Tobacco: Non-smoker
Alcohol: None
Drug: None
Family History
Family History: Cancer (Mother had gastric cancer)
Phy Exam
General Physical Exam
General Presentation: well appearing and no apparent distress
General age: appears stated age
General Skin: warm and dry
General Habitus: elderly
ENT Exam
ENT Exam: other (No external signs of head trauma.)
Eye Exam
Eye Exam: PERRL
Cardiovascular Exam
Cardiovascular Exam: regular rate/rhythm and no edema
Pulmonary Exam
Pulmonary Exam: lungs clear, no respiratory distress, no crackles and no wheezing
Gastrointestinal Exam
Gastrointestinal Exam: non tender, soft and non distended
[place] Coma Scale
Eye Opening: Spontaneous
Verbal Response: Oriented
Motor Response: Obeys Commands
GCS Total Score: 15
Musculoskeletal Exam
Musculoskeletal Exam: other (+R hip tenderness. R leg is shortened and externally rotated. He refuses to attempt ROM of hip/knee due to pain. He is able to range ankle. 2+ DP pulse and sensation intact. )
Skin Exam
Skin Exam: normal color and warm/dry
Course
Orders/Labs/Results
Orders:
Orders
11/24/23 10:34
Electrocardiogram (*1) Urgent
Reason for Study: Other
Other Reason for Exam: fall
EKG- Treatment ONCE
11/24/23 10:36
Type+Screen Urgent
CMP [Comprehensive Metabolic Panel] Urgent
Complete Blood Count/With Diff Urgent
11/24/23 11:18
CT Cervical Spine W/o Iv Contr Urgent
Comment:
Reason For Exam: Unwitnessed fall
Fentanyl Citrate/Pf [Sublimaze] 50 mcg IV NOW STA
CR Femur - Right Min 2 Vw Urgent
Comment:
Reason For Exam: pain, fall
Hip, Right 2-3 Views [CR Hip - RT w/wo Pel 2-3 Vw*] Urgent
Comment:
Reason For Exam: pain, fall
Include a pelvis x-ray?: Yes
11/24/23 11:19
CT Head W/o Iv Contrast Urgent
Comment:
Reason For Exam: Unwitnessed fall
11/24/23 11:35
0.9% Sodium Chloride 500 ml [Nss] 500 ml IV BOLUS
Acetaminophen 1000MG/100Ml [Ofirmev] 1,000 mg in 100 ml IV ONCE
Acetaminophen IV Indication:: ED Narcotic Naive Pt-ONCE
11/24/23 11:42
Acetaminophen 1000MG/100Ml [Ofirmev] 1,000 mg in 100 ml .ROUTE .STK-MED
11/24/23 13:01
CT Pelvis W/o Iv Contrast Urgent
Comment:
Reason For Exam: R hip fracture, ortho request
11/24/23 Dinner
Regular
08/02/24 16:04
Admit/Transfer Patient As Directed
Co-Sign Provider:
Level of Care: Inpatient admission
Assign to:: Telemetry
Physician / Group: sumit gomez
Diagnosis: Acute subcapital right hip fracture
Reason for Telemetry: Arrhythmia
Date to Stop Telemetry: 11/27/23
Time to Stop Telemetry: 11:00
Reason for Hospitalization: Acute subcapital right hip fracture
Expected length of stay greater than two midnights?: Yes
ELOS- Estimated Length of Stay in days: 3
I certify the patient meets the requirements for IP care: Yes
11/24/23 16:05
PRN Pain Medication Management As Directed
May give lesser potent ordered pain med per pt: Yes
preference::
Protocol:: Medication orders for pain may be administered in a
manner that supports deferring to patient preference
when the pt is:
- Requesting an ordered lesser potent pain medication.
Least to most potent pain medications are defined
as: acetaminophen < NSAID < tramadol < opioids
(morphine, oxycodone, hydromorphone).
- Requesting a lesser dose of the same medication IF
ORDERED.
- Requesting a less intrusive route of administration
if both routes are prescribed by the provider (PO <
IV).
11/24/23 16:06
Code Status As Directed
Resuscitation Status: Full Code
11/24/23 16:42
Morphine Sulfate 1 mg IV Q4HPRN PRN
11/24/23 17:35
Acetaminophen [Tylenol] 650 mg PO Q4HPRN PRN
11/24/23 20:00
Pantoprazole [Protonix IV] 40 mg IV BID
11/25/23 Breakfast
NPO
Allow oral meds: Yes
Allow clear liquids: Sips of Clears
NPO for procedure after (time): after mn for OR 11/24
CeFAZolin 2 GRAM [Ancef] 2 grams in 10 ml IV PRE PROCEDURE
Povidone Iodine 10% Solution [Povidone Iodine 10%] 114 ml 0.9% Sod Chloride 3000 ml Irr [Nss Irrigation Bag] 3,000 ml IRRIG OR
Tranexamic Acid 3,000 mg 0.9% Sodium Chloride 250 ml [Nss] 250 ml IRRIG OR
11/27/23 11:00
DC Protocol for Telemetry ONCE
Abnormal Lab Results
11/24/23
10:36
WBC 11.6 H 10^3/uL
(4.8-10.8)
RBC 4.38 L 10^6/uL
(4.70-6.10)
Hgb 12.1 L g/dL
(13.0-18.0)
Hct 36.5 L %
(39.0-52.0)
RDW 15.9 H %
(11.5-14.5)
Abs Immat Gran (auto) 0.1 H 10^3/uL
(0-0.05)
Absolute Neuts (auto) 6.9 H 10^3/uL
(1.4-6.5)
Absolute Monos (auto) 1.7 H 10^3/uL
(0.1-0.6)
Monocytes % 14.4 H %
(1.7-9.3)
BUN 25 H mg/dl
(9-20)
Glucose 104 H mg/dl
(70-99)
Total Protein 6.2 L g/dl
(6.3-8.2)
11/24/23 10:36
11/24/23 10:36
Vital Signs
Initial and Last Documented VS:
Initial Vital Signs
Pulse Resp BP
80 15 136/71
11/24/23 10:25 11/24/23 10:25 11/24/23 10:25
Last Documented Vital Signs
Pulse Resp BP Pulse Ox
74 15 98/80 95
11/24/23 16:15 11/24/23 16:15 11/24/23 16:00 11/24/23 15:00
MDM/Problems Addressed
Differential Diagnosis Includes:
88yoM here after a mechanical fall last night. C/o R hip pain and inability to ambulate. R leg is shortened and externally rotated. RLE is neurovascularly intact. Vitals stable. Differential diagnosis includes but is not limited to: hip fracture,
dislocation, ambulatory dysfunction
Initial ED plan: Check CBC, CMP, EKG, right hip/femur x-rays, CT head, and CT cervical spine.
*EKG
Interpreted by ED Provider?: Yes
EKG Intrepretation Date: 11/24/23
Heart Rate: 69
Rate: normal
Rhythm: sinus
[place]: left axis deviation
QRS Pattern: right bundle branch block
Ischemia: no ischemia
*Critical Care Note
Total Time (30-74mins, 75-104mins- exclusive of procedures): Not Applicable
Update Note
Update Note:
X-rays confirm a subcapital R hip fracture. Case discussed with Dr. Bassett, power distribution engineer orthopedist, who is requesting a CT of the pelvis to exclude tumors. No other injuries seen on imaging. Patient admitted for further management.
ED Attending Note
-
Portions of this chart may have been created with voice recognition software.� Occasional wrong word or��sound alike� substitutions may have occurred due to the inherent limitations of voice recognition software.
Discharge Plan
Departure
Patient Disposition: Admit
Date of Disposition: 11/24/23
Time of Disposition: 14:24
Presentation/result/management discussed w/ accepting MD/DO: Hospitalist
Discharge Problem:
Closed fracture of right hip
Interventions
Interventions:
*Risk Screen - Suicide Last Done: 11/24/23 10:32
*Neglect/Abuse Screening Last Done: 11/24/23 10:32
ED- Fall Risk Assessment Last Done: 11/24/23 10:29
*ED COVID-19 Vaccine History Last Done: 11/24/23 10:31
ED-Musculoskeletal Assessment Last Done: 11/24/23 10:31
ED- Neurological Assessment Last Done: 11/24/23 10:30
ED-Skin Assessment Last Done: 11/24/23 10:32
[2023-11-24] MEDS: NSS 500 IV (11:43)
[2023-11-24] MEDS: OFIRMEV 100 IV (11:44)
--- NOTE | 2023-11-24 14:44 | CON.ORTHO ---
Addendum entered and electronically signed by Zakiya Maradiaga PA-C 11/24/23 15:46:
*input from medicine, not ID, for medical optimization.*
Original Note:
Consultation
-
Date/Time Consultation Requested: 11/24/2023; time unknown
Date/Time Consultation Performed: 11/24/2023; 1430
Requesting Provider: unknown
Performing Provider: Zakiya Maradiaga PA-C for Dr. Saida Bassett
Reason for Consultation: Right hip fracture
Consultation - Orthopedics
History
Mr. Valverde is an 88yo male with a history of Parkinson's disease and stomach cancer on immunotherapy seen today for evaluation of a right hip fracture. His daughter is at the bedside. She reports he was walking with his walker yesterday evening,
and fell onto his right side. His daughter states he 'freezes' from time to time with his Parkinson's and she believes that this is what caused his fall. He reports his pain is well controlled at present. He denies pain elsewhere.
He lives independently with his . He ambulates with the assistance of a walker at baseline. He denies PMH of DVT/CVA/DC or DM. He does not take any daily blood thinners.
Allergies / Home Medications
Allergy/AdvReac Type Severity Reaction Status Date / Time
Penicillins Allergy Rash Verified 11/24/23 10:38
�Medication �Instructions �Recorded
carbidopa ER 25 mg-levodopa 100 mg 1 tab PO QPM@1800 Neurological 08/02/23
tablet,extended release Condition
carbidopa ER 25 mg-levodopa 100 mg 2.5 tab PO BID@0700,1200 08/02/23
tablet,extended release Neurological Condition
cholecalciferol (vitamin D3) 50 50 mcg PO NOON Supplement 08/02/23
mcg (2,000 unit) tablet (Vitamin
D3)
esomeprazole magnesium 40 mg 40 mg PO BID Gastrointestinal Issue 08/02/23
capsule,delayed release
mirabegron 50 mg tablet,extended 50 mg PO HS Urinary Issue 08/02/23
release 24 hr (Myrbetriq)
rivastigmine tartrate 3 mg capsule 3 mg PO BID Neurological Condition 08/02/23
ezetimibe 10 mg tablet (Zetia) 10 mg PO HS 11/24/23
sucralfate 1 gram tablet (Carafate) 1 g PO BID 11/24/23
Vital Signs / Lab Results
Pulse Resp BP Pulse Ox
78 19 159/83 98
11/24/23 13:36 11/24/23 13:36 11/24/23 13:35 11/24/23 13:36
11/24/23 10:36
11/24/23 10:36
XR Right Hip 11/24/2023 IMPRESSION:
Mildly displaced, subcapital RIGHT hip fracture.
CT Pelvis 11/24/2023 IMPRESSION:
Subcapital RIGHT hip fracture, as above.
Directed exam of the right lower extremity reveals no obvious erythema, ecchymosis or lesions about the right hip. Tenderness to palpation over the anterior hip. Thigh soft and compressible. ROM deferred secondary to known fracture. Positive log
roll. Calf soft and nontender. Patient able to wiggle toes, plantar and dorsiflex ankle. Neurovascularly intact distally.
Assessment / Plan
Right femoral neck fracture
--Unfortunately, Mr. Valverde sustained a femoral neck fracture in his fall. I recommend proceeding with a right hip hemiarthroplasty. The risks, benefits, alternatives, recovery process and potential complications were discussed in detail. Both
Abdirashid, and his daughter elected to proceed with surgery. Surgical and blood consents are signed and scanned into the patient's chart. Paper copy at OR desk. We will plan to proceed with OR tomorrow AM under the direction of Dr. Bassett. We would
appreciate input from ID in medical optimization of this patient.
--NWB to RLE until surgery.
--NPO after midnight for surgery.
--Antibiotics and irrigation ordered to OR.
--T+S completed.
--Please reach out with any other questions or concerns.
--- NOTE | 2023-11-24 16:10 | HPS.HSE ---
Family Physician
-
Family Physician: Jeff Salinas
Chief Complaint
-
Fall
History of Present Illness
88-year-old male with past medical history of hypertension, GERD, stomach cancer on immunotherapy, Parkinson's disease came to the hospital after a fall last night. Yesterday patient was walking with his walker around dinnertime and then he fell.
Denies any syncopal episode. Denies any dizziness prior to falling. Denies any loss of consciousness. This morning patient was unable to ambulate and was having right hip pain which prompted him to come to the ED for evaluation. Currently he
denies any chest pain, shortness of breath. Denies any abdominal pain, nausea, vomiting, diarrhea, constipation.
Medical History
Past Medical History
Past Medical History: Reports Cancer (Stomach), GERD, HTN and Other (Parkinson's)
Past Surgical History: Reports None
Social History
Tobacco: Non-smoker
Alcohol: None
Family History
Family History: Not pertinent
Allergies / Home Medications
Allergies reflects when Allergies were last updated in eelusion.
Home Medications with original date entered in eelusion
Allergy/Medication List:
Allergies
Allergy/AdvReac Type Severity Reaction Status Date / Time
Penicillins Allergy Rash Verified 11/24/23 10:38
Home Medications
carbidopa ER 25 mg-levodopa 100 mg tablet,extended release 1 tab PO QPM@1800 Neurological Condition 08/02/23
carbidopa ER 25 mg-levodopa 100 mg tablet,extended release 2.5 tab PO BID@0700,1200 Neurological Condition 08/02/23
cholecalciferol (vitamin D3) 50 mcg (2,000 unit) tablet (Vitamin D3) 50 mcg PO NOON Supplement 08/02/23
esomeprazole magnesium 40 mg capsule,delayed release 40 mg PO BID Gastrointestinal Issue 08/02/23
mirabegron 50 mg tablet,extended release 24 hr (Myrbetriq) 50 mg PO HS Urinary Issue 08/02/23
rivastigmine tartrate 3 mg capsule 3 mg PO BID Neurological Condition 08/02/23
ezetimibe 10 mg tablet (Zetia) 10 mg PO HS 11/24/23
sucralfate 1 gram tablet (Carafate) 1 g PO BID 11/24/23
Review of Systems
-
History Source: Patient and Family
A 12 point ROS was completed and negative except as noted: Yes
Musculoskeletal: Reports Joint Pain
Physical Exam
Vital Signs
Vital Signs
Pulse Resp BP Pulse Ox
77 15 130/69 95
11/24/23 15:30 11/24/23 15:30 11/24/23 15:00 11/24/23 15:00
Physical Exam
General: Well Nourished and No Apparent Distress
HEENT: Anicteric and Moist mucous membranes
Respiratory: Clear and Non Labored Respirations; No Wheezes
Cardiac: S1/S2 and Regular Rhythm
Breast: Deferred by me
GI: Soft, Non Tender, Non Distended and Normal Bowel Sounds
Rectal: Deferred by Provider
Genito-urinary: Deferred by me
Musculoskeletal: No Edema
Neuro: Awake, Alert and Oriented
Psych: Calm and Intact Judgment/Insight
Laboratory Results
-
11/24/23 10:36
11/24/23 10:36
Laboratory Results
Total Bilirubin 0.8 mg/dl (0.2-1.3) 11/24/23 10:36
AST 30 U/L (17-59) 11/24/23 10:36
ALT < 10 U/L (0-50) 11/24/23 10:36
Alkaline Phosphatase 76 U/L (38-126) 11/24/23 10:36
Data Reviewed
-
Diagnostic Radiology: Report Reviewed by me, Discussed with Patient and Discussed with Family
Lab Data: Labs Reviewed by me
Impression/Plan
-
Acute traumatic subcapital right hip fracture status post fall
Orthopedics consulted
Plan for OR tomorrow
N.p.o. past midnight
Pain control
NWB, PT/OT evaluation post or per orthopedics
SCDs for now
RCRI score 0; 3.9% 30-day risk of , [place] or cardiac arrest
Parkinson's disease
Continue with levodopa carbidopa, rivastigmine
History of GERD
Continue PPI, Carafate
History of gastric malignancy
On immunotherapy, last treatment 11/23/[address] Gallagher outpatient
History of hypertension
Not on any medications
HLD
cw zetia
DVT prophylaxis
SCDs
Full code
Discussed with daughter at bedside
I spent a total of 76 minutes with the patient or on the floor. More than 50% of this time involved counseling and coordination of care.
[2023-11-24] MEDS: NSS 1000 IV (17:03)
[2023-11-24] MEDS: MORPHINE SULFATE IV (17:04)
[2023-11-24] MEDS: CARAFATE 1 GRAM PO (20:08)
[2023-11-24] MEDS: SINEMET CR 25-100 (EXTENDED RELEASE) 1 TABLET PO (20:08)
[2023-11-24] MEDS: EXELON 3 MG PO (20:09)
[2023-11-24] MEDS: PROTONIX IV 40 MG IV (20:09)
[2023-11-24] MEDS: NSS (PRESERVATIVE FREE) 10 ML IV (20:09)
[2023-11-24] MEDS: ZETIA 10 MG PO (20:10)
[2023-11-24] MEDS: TYLENOL 650 MG PO (20:11)
[2023-11-24] MEDS: MORPHINE SULFATE 1 MG IV (23:57)
[2023-11-25] VITALS (12 sets, daily range): BP systolic 86–151; BP diastolic 48–130; PULSE 66
--- NOTE | 2023-11-25 03:00 | PTCARENOTE ---
Change of shift admit around 1830- pt AAOx3 garbled speech at times. Throughout night, pt confused, trying to get out bed. Able to reorient. Pleasant. Bed alarm placed and moved pt closer to nurses station.
[2023-11-25] MEDS: NSS 1000 IV (06:24)
[2023-11-25] MEDS: SINEMET CR 25-100 (EXTENDED RELEASE) 2.5 TABLET PO ×2 (06:24→12:48)
--- NOTE | 2023-11-25 07:50 | PTCARENOTE ---
Pt. transferred to OR via bed with son at bedside. Chart and preprocedure antibiotic sent with pt.
[2023-11-25] MEDS: ANCEF 10 IV (08:40)
[2023-11-25 09:32] LABS: Blood Urea Nitrogen 18 mg/dl (9-20); Calcium 8.7 mg/dl (8.4-10.2); Carbon Dioxide 26 mmol/L (22-30); Chloride 105 mmol/L (98-107); Estimated Creatinine Clearance 57 ml/min; Glucose 93 mg/dl (70-99); Potassium 4.3 mmol/L (3.5-5.1); Sodium 136 mmol/L (135-145); eGFR > 60.00
[2023-11-25] MEDS: NSS (PRESERVATIVE FREE) IV (09:51)
[2023-11-25] MEDS: CARAFATE PO (09:51)
[2023-11-25] MEDS: EXELON PO (09:51)
[2023-11-25] MEDS: PROTONIX IV IV (09:51)
--- NOTE | 2023-11-25 10:11 | CM ---
CM met with Abdirashid and his son at bedside early this AM prior to going to OR for repair of Fx hip.
Abdirashid lives with his and a 24/7 caregiver at [facility], an [facility]. They live in a first floor apartment with no DME at the current time. Hx of [facility] in the past, no hx of SNF. Anticipate need for SNF s/p repair of fx
hip. Will discuss further with son post-op.
Plan: CM to follow for SNF transfer s/p hip repair vs. discharge to home with spouse and 24 hour caregiver.
Pharmacy: [facility] in [place]
PCP: DR Salinas
--- NOTE | 2023-11-25 11:22 | PTCARENOTE ---
Report given to Missy on . Pt. to go to 2108 post op. Belongings sent to [address].
[2023-11-25 11:27] LABS: Hematocrit 34.7 % (39.0-52.0); Hemoglobin 11.4 g/dL (13.0-18.0); Mean Corp Hgb Conc. 32.9 g/dL (33.0-37.0); Mean Corpuscular Hgb 27.8 pg (27.0-31.0); Mean Corpuscular Volume 84.6 fL (80.0-94.0); Mean Platelet Volume 9.4 fL (7.4-10.4); Platelet Count 217 10^3/uL (130-400); Red Cell Dist. Width 16.3 % (11.5-14.5); White Blood Cell Count 9.6 10^3/uL (4.8-10.8)
[2023-11-25] MEDS: NORMOSOL-R 1000 IV (11:30)
--- NOTE | 2023-11-25 12:00 | PTCARENOTE ---
pt received from PACU to room 2109 at 1145.
son at bedside. pt sleepy, arousable to verbal stimuli but returns to sleep quickly. assessment as documented. bed in locked and in lowest position. call elizondo in reach. telemetry placed and reading SB-SR 50-60's w/1st AVB and BBB. will observe.
[2023-11-25] MEDS: VITAMIN D3 (cholecalciferol) 50 MCG PO (12:48)
[2023-11-25 13:05] LABS: % Basophils 0.3 % (0-2); % Eosinophils 0.9 % (0-6); % Immature Granulocytes 0.5 % (0-0.5); % Lymphocytes 30.7 % (20.5-51.1); % Monocytes 14.1 % (1.7-9.3); % Neutrophils 53.5 % (42.2-75.2); Absolute Eosinophils 0.1 10^3/uL (0-0.7); Absolute Immature Granulocytes 0.1 10^3/uL (0-0.05); Absolute Lymphocytes 2.9 10^3/uL (1.2-3.4); Absolute Monocytes 1.4 10^3/uL (0.1-0.6); Absolute Neutrophils 5.1 10^3/uL (1.4-6.5); Nucleated Red Blood Cells % 0 % (-)
--- NOTE | 2023-11-25 13:09 | W.PN.HOSP.TC ---
Today's Communication/Plan
-
Monitor vital signs
see plan
OR today
Pain control
DVT prophylaxis
Assessment / Plan
Assessment / Plan
General: Well Nourished and No Apparent Distress
HEENT: Anicteric and Moist mucous membranes
Respiratory: Clear and Non Labored Respirations; No Wheezes
Cardiac: S1/S2 and Regular Rhythm
GI: Soft, Non Tender, Non Distended and Normal Bowel Sounds
Genito-urinary: Deferred by me
Musculoskeletal: No Edema
Neuro: Awake, Alert and Oriented
Psych: Calm and Intact Judgment/Insight
Acute traumatic subcapital right hip fracture status post fall
Orthopedics consulted
Plan for OR today
N.p.o. past midnight
Pain control
NWB, PT/OT evaluation post or per orthopedics
SCDs for now
RCRI score 0; 3.9% 30-day risk of , [place] or cardiac arrest
Parkinson's disease
Continue with levodopa carbidopa, rivastigmine
History of GERD
Continue PPI, Carafate
History of gastric malignancy
On immunotherapy, last treatment 11/23/[address] Gallagher outpatient
History of hypertension
Not on any medications
HLD
cw zetia
DVT prophylaxis
SCDs
Full code
Anticipated Discharge: 24 - 48 hours
Subjective/Interval History
-
Date of Service: November 25, 2023
denies pain
Objective Data
-
Labs:
Laboratory Results
11/25/23
07:39
WBC 9.6
Hgb 11.4 L
Hct 34.7 L
Plt Count 217
Sodium 136
Potassium 4.3
Chloride 105
Carbon Dioxide 26
BUN 18
Creatinine 0.9
Glucose 93
Calcium 8.7
Vital Signs:
Vital Signs
Temp Pulse Resp BP Pulse Ox
97.4 F 61 14 120/71 96
11/25/23 11:45 11/25/23 11:45 11/25/23 11:45 11/25/23 11:45 11/25/23 11:45
I&O
11/24/23 11/25/23 11/26/23
06:59 06:59 06:59
Intake Total 0 / 0 150 / 150
Output Total 600 / 600
Balance -600 / -600 150 / 150
--- NOTE | 2023-11-25 15:31 | CM ---
Reviewed the chart notes and spoke with the patient's son at the bedside. Advance Directive Packet provided. Provided resource list for SNF/rehabs. Family interested in [facility] or [facility]. Explained would need to see how patient is and if
able to participate in three hours of intense therapy per day. CM continues to be available to patient/family and is monitoring medical plan for needs at discharge.
Plan: Discharge plans will depend on the patient's progress.
[2023-11-25] MEDS: ROXICODONE 5 MG PO (15:34)
[2023-11-25] MEDS: ANCEF 5 IV ×2 (16:43→23:56)
[2023-11-25] MEDS: ASPIRIN 325 MG PO (17:59)
[2023-11-25] MEDS: SINEMET CR 25-100 (EXTENDED RELEASE) 1 TABLET PO (18:00)
[2023-11-25] MEDS: PROTONIX IV 40 MG IV (19:48)
[2023-11-25] MEDS: EXELON 3 MG PO (19:49)
[2023-11-25] MEDS: NSS (PRESERVATIVE FREE) 10 ML IV (19:49)
[2023-11-25] MEDS: COLACE 100 MG PO (19:49)
[2023-11-25] MEDS: SENOKOT 17.2 MG PO (19:49)
[2023-11-25] MEDS: CARAFATE 1 GRAM PO (19:50)
[2023-11-25] MEDS: ZETIA 10 MG PO (21:21)
[2023-11-25] MEDS: BACTROBAN 2% OINTMENT 1 APPLIC NASAL (21:21)
[2023-11-25] MEDS: NSS IV (22:25)
[2023-11-26] VITALS (8 sets, daily range): BP systolic 70–143; BP diastolic 38–63; PULSE 86–88; BMI 26.9
[2023-11-26] MEDS: SINEMET CR 25-100 (EXTENDED RELEASE) 2.5 TABLET PO ×2 (08:09→12:07)
[2023-11-26] MEDS: SENOKOT 17.2 MG PO ×2 (08:13→20:18)
[2023-11-26] MEDS: COLACE 100 MG PO ×2 (08:13→20:17)
[2023-11-26] MEDS: PROTONIX IV 40 MG IV (08:14)
[2023-11-26] MEDS: ASPIRIN 325 MG PO (08:14)
[2023-11-26] MEDS: EXELON 3 MG PO ×2 (08:14→20:17)
[2023-11-26] MEDS: NSS (PRESERVATIVE FREE) 10 ML IV (08:14)
[2023-11-26] MEDS: CARAFATE 1 GRAM PO ×2 (08:14→20:17)
[2023-11-26] MEDS: BACTROBAN 2% OINTMENT 1 APPLIC NASAL ×2 (08:14→20:16)
[2023-11-26] MEDS: FLUSH (NSS) 2 FLUSH IV (08:15)
[2023-11-26] MEDS: TYLENOL 650 MG PO ×2 (08:16→17:38)
--- NOTE | 2023-11-26 08:38 | W.PN.ORTHO ---
Today's Communication / Plan
-
88 yo M POD1 following his right hip hemiarthroplasty under the direction of Dr. Bassett
--WBAT to RLE with walker. THPs x6 weeks. Abductor pillow at rest. We appreciate the assistance of PT/OT.
--Recommend ASA 325 mg daily x4 weeks for DVT ppx.
--Hgb pending this AM. Continue to monitor.
--Incision was cleaned thoroughly with Betadine and a new surgical dressing was placed. Emphasized the importance to patient that the dressing stay in place. Maintain surgical dressing until 7-10 days post-op.
--Staple removal at 2 weeks post-op. Outpatient follow up 4 weeks post-op.
--case management consult for discharge planning. Patient's daughter would prefer rehab at [facility].
--Orthopedics will continue to follow along.
Assessment
.
Distal Motor Intact: Yes
Dressing:
Clean, dry and intact.
Plan
.
Surgery / Date: R hip hemiarthroplasty, Bassett, 11/24
DVT Prophylaxis: Aspirin
Activity:
Out of bed.
PT/OT
Subjective
.
.:
Mr. Valverde is POD1 following his right hip hemiarthroplasty performed by Dr. Bassett. He is resting comfortably in bed this morning. He did remove his surgical dressing and stated it was irritating him. He denies any significant pain in the hip
at present.
Vital Signs and Labs
.
Vital Signs and Labs:
Temp Pulse Resp BP Pulse Ox
99.1 F 80 16 112/51 94
11/26/23 07:35 11/26/23 07:35 11/26/23 07:35 11/26/23 07:35 11/26/23 07:35
Physical Exam
-
Directed exam of the right hip reveals surgical incision well approximated with beverley. No erythema, drainage or dehiscence. Mild tenderness to palpation about the hip. Thigh soft and compressible. Calf soft and nontender. Patient able to wiggle
toes, plantar and dorsiflex ankle. Neurovascularly intact distally.
[2023-11-26 09:22] LABS: % Basophils 0.2 % (0-2); % Eosinophils 0.3 % (0-6); % Immature Granulocytes 0.7 % (0-0.5); % Lymphocytes 23.5 % (20.5-51.1); % Monocytes 11.1 % (1.7-9.3); % Neutrophils 64.2 % (42.2-75.2); Absolute Immature Granulocytes 0.1 10^3/uL (0-0.05); Absolute Lymphocytes 3.4 10^3/uL (1.2-3.4); Absolute Monocytes 1.6 10^3/uL (0.1-0.6); Absolute Neutrophils 9.3 10^3/uL (1.4-6.5); Hematocrit 34.1 % (39.0-52.0); Hemoglobin 11.4 g/dL (13.0-18.0); Mean Corp Hgb Conc. 33.4 g/dL (33.0-37.0); Mean Corpuscular Hgb 27.9 pg (27.0-31.0); Mean Corpuscular Volume 83.4 fL (80.0-94.0); Mean Platelet Volume 9.5 fL (7.4-10.4); Nucleated Red Blood Cells % 0 % (-); Platelet Count 202 10^3/uL (130-400); Red Blood Cell Count 4.09 10^6/uL (4.70-6.10); Red Cell Dist. Width 16.6 % (11.5-14.5); White Blood Cell Count 14.5 10^3/uL (4.8-10.8)
[2023-11-26 09:46] LABS: Blood Urea Nitrogen 22 mg/dl (9-20); Calcium 8.6 mg/dl (8.4-10.2); Carbon Dioxide 25 mmol/L (22-30); Chloride 103 mmol/L (98-107); Estimated Creatinine Clearance 57 ml/min; Glucose 112 mg/dl (70-99); Potassium 4.7 mmol/L (3.5-5.1); Sodium 133 mmol/L (135-145); eGFR > 60.00
--- NOTE | 2023-11-26 10:40 | W.PN.HOSP.TC ---
Today's Communication/Plan
-
Monitor vital signs see plan
PT/OT
Will need rehab
Monitor leukocytosis
Bladder scan, check UA
Laxatives
Pain control
Discussed with son at bedside
Assessment / Plan
Assessment / Plan
General: Well Nourished and No Apparent Distress
HEENT: Anicteric and Moist mucous membranes
Respiratory: Clear and Non Labored Respirations; No Wheezes
Cardiac: S1/S2 and Regular Rhythm
GI: Soft, Non Tender, Non Distended and Normal Bowel Sounds
Musculoskeletal: No Edema
Neuro: Awake, Alert and Oriented
Psych: Calm and Intact Judgment/Insight
Acute traumatic subcapital right hip fracture status post fall
Orthopedics following; s/p right hip hemiarthroplasty 11/24
Plan for OR today
WBAT to RLE with walker. THPs x6 weeks. Abductor pillow at rest.
--Recommend ASA 325 mg daily x4 weeks for DVT ppx.
Pain control
laxatives
Leukocytosis today, no signs of fever. Will monitor
hx of Parkinson's disease
Continue with levodopa carbidopa, rivastigmine
Dysuria
Check UA, bladder scan
Hyponatremia
monitor
History of overactive bladder
On Myrbetriq
History of GERD
Continue PPI, Carafate
History of gastric malignancy
On immunotherapy, last treatment 11/23/[address] Gallagher outpatient
History of hypertension
Not on any medications
HLD
cw zetia
DVT prophylaxis
SCDs; ASA
Full code
I spent a total of 52 minutes with the patient or on the floor. More than 50% of this time involved counseling and coordination of care.
Anticipated Discharge: Within 24 hours
Subjective/Interval History
-
Date of Service: November 26, 2023
denies nausea
Objective Data
-
Labs:
Laboratory Results
11/26/23
08:48
WBC 14.5 H
Hgb 11.4 L
Hct 34.1 L
Plt Count 202
Sodium 133 L
Potassium 4.7
Chloride 103
Carbon Dioxide 25
BUN 22 H
Creatinine 0.9
Glucose 112 H
Calcium 8.6
Vital Signs:
Vital Signs
Temp Pulse Resp BP Pulse Ox
99.1 F 80 16 112/51 94
11/26/23 07:35 11/26/23 07:35 11/26/23 07:35 11/26/23 07:35 11/26/23 08:00
I&O
11/25/23 11/26/23 11/27/23
06:59 06:59 06:59
Intake Total 0 / 0 1830 / 1830
Output Total 600 / 600 670 / 670
Balance -600 / -600 1160 / 1160
[2023-11-26 10:51] LABS: Urine Albumin Negative (Neg - Trace); Urine Bilirubin Negative (Negative); Urine Character Clear (Clear); Urine Color Yellow; Urine Glucose Negative (Negative); Urine Ketone Trace (Negative); Urine Leukocyte Negative (Negative); Urine Nitrite Negative (Negative); Urine Occult Blood Negative (Negative); Urine Specific Gravity 1.025 (<1.030); Urine Urobilinogen 1+ (Neg - 1+)
[2023-11-26] MEDS: VITAMIN D3 (cholecalciferol) 50 MCG PO (12:06)
--- NOTE | 2023-11-26 14:20 | CM ---
Reviewed the chart notes. Referrals sent to [facility] per family request.
[2023-11-26] MEDS: SINEMET CR 25-100 (EXTENDED RELEASE) 1 TABLET PO (17:38)
[2023-11-26] MEDS: MIRALAX 17 GRAMS PO (17:38)
--- NOTE | 2023-11-26 18:22 | PTCARENOTE ---
pt's daughter, Bianca to visit. expressed concerns regarding constipation and last BM being Monday or Monday of last week. PRN Mirlalax provided per JUN. will observe.
[2023-11-26] MEDS: PROTONIX 40 MG PO (20:18)
[2023-11-26] MEDS: NON-FORMULARY ITEM 50 MG PO (22:29)
[2023-11-26] MEDS: ZETIA 10 MG PO (22:29)
[2023-11-27] VITALS (7 sets, daily range): BP systolic 85–133; BP diastolic 45–70; PULSE 75; O2SAT 95–97; BMI 27.2
[2023-11-27] MEDS: SINEMET CR 25-100 (EXTENDED RELEASE) 2.5 TABLET PO ×2 (06:26→12:15)
[2023-11-27 07:20] LABS: Blood Urea Nitrogen 19 mg/dl (9-20); Calcium 8.5 mg/dl (8.4-10.2); Carbon Dioxide 24 mmol/L (22-30); Chloride 103 mmol/L (98-107); Estimated Creatinine Clearance 64 ml/min; Glucose 102 mg/dl (70-99); Potassium 4.4 mmol/L (3.5-5.1); Sodium 133 mmol/L (135-145); eGFR > 60.00
[2023-11-27 07:23] LABS: Hemoglobin 10.8 g/dL (13.0-18.0); Mean Corp Hgb Conc. 34.8 g/dL (33.0-37.0); Mean Corpuscular Hgb 28.8 pg (27.0-31.0); Mean Corpuscular Volume 82.7 fL (80.0-94.0); Mean Platelet Volume 9.4 fL (7.4-10.4); Platelet Count 202 10^3/uL (130-400); Red Blood Cell Count 3.75 10^6/uL (4.70-6.10); Red Cell Dist. Width 16.3 % (11.5-14.5); White Blood Cell Count 11.9 10^3/uL (4.8-10.8)
--- NOTE | 2023-11-27 07:29 | W.PN.ORTHO ---
Today's Communication / Plan
-
--Appreciate the primary team, continue Tx
--WBAT to RLE with walker. THPs x6 weeks. Abductor pillow at rest. We appreciate the assistance of PT/OT.
--Recommend ASA 325 mg daily x4 weeks for DVT ppx.
--Trend Hgb. Continue to monitor.
--Maintain surgical dressing until 7-10 days post-op.
--Staple removal at 2 weeks post-op. Outpatient follow up 4 weeks post-op.
--case management consult for discharge planning. Patient's daughter would prefer rehab at [facility] or [place].
--Orthopedics to sign off for now, please re-engage during admission, if necessary
Assessment
.
Distal Motor Intact: Yes
Dressing:
Clean, dry and intact. Aquacel in place right hip
Assessment:
POD#2 Right hip Mark
Overall doing/feeling well this AM
Calf soft, nontender
Plan
.
Surgery / Date: Right hip Mark 3 Dec 15 (Bassett)
DVT Prophylaxis: Aspirin
Activity:
Out of bed. WBAT B/L LEs on walker
PT/OT, THPs x 6 weeks
Discharge Plan: Rehab
Discharge Information:
[place] vs. [facility], appreciate CM
Subjective
.
.:
Patient resting comfortably. Mild right hip pain this AM
Vital Signs and Labs
.
Vital Signs and Labs:
Lab Results
11/27/23 06:21
11/27/23 06:21
Temp Pulse Resp BP Pulse Ox
98.1 F 79 12 131/66 96
11/27/23 03:00 11/27/23 03:00 11/27/23 03:00 11/27/23 03:00 11/27/23 03:00
Non-invasive Hgb result: 10.5
--- NOTE | 2023-11-27 07:41 | W.PN.HOSP.TC ---
Today's Communication/Plan
-
dispo planning
treat constipation
Assessment / Plan
Assessment / Plan
General: Well Nourished and No Apparent Distress
HEENT: Anicteric and Moist mucous membranes
Respiratory: Clear and Non Labored Respirations; No Wheezes
Cardiac: S1/S2 and Regular Rhythm
GI: Soft, Non Tender, Non Distended and Normal Bowel Sounds
Musculoskeletal: No Edema
Neuro: Awake, Alert and Oriented
Psych: Calm and Intact Judgment/Insight
88-year-old male with past medical history of hypertension, GERD, stomach cancer on immunotherapy, Parkinson's disease came to the hospital after a fall night prior resulting in right hip pain found to have right hip fracture.\\
Acute traumatic subcapital right hip fracture status post fall
-appreciate ortho
-s/p right hip hemiarthroplasty 11/24
-WBAT to RLE with walker. THPs x6 weeks. Abductor pillow at rest.
--Recommend ASA 325 mg daily x4 weeks for DVT ppx.
Pain control
-dispo planning, Ferrari eval
Constipation
-adjust bowel regimen
hx of Parkinson's disease
Continue with levodopa carbidopa, rivastigmine
UA lcear
Hyponatremia
monitor
History of overactive bladder
On Myrbetriq
History of GERD
Continue PPI, Carafate
History of gastric malignancy
On immunotherapy, last treatment 11/23/[address] Gallagher outpatient
History of hypertension
Not on any medications
HLD
cw zetia
DVT prophylaxis
SCDs; ASA
Full code
I spent a total of 52 minutes with the patient or on the floor. More than 50% of this time involved counseling and coordination of care.
Anticipated Discharge: Within 24 hours
Subjective/Interval History
-
Date of Service: November 27, 2023
patient knows where he is, awoken from sleep
he denies pain
per RN has not had a BM in one week
Objective Data
-
Labs:
Laboratory Results
11/27/23
06:21
WBC 11.9 H
Hgb 10.8 L
Hct 31.0 L
Plt Count 202
Sodium 133 L
Potassium 4.4
Chloride 103
Carbon Dioxide 24
BUN 19
Creatinine 0.8
Glucose 102 H
Calcium 8.5
Vital Signs:
Vital Signs
Temp Pulse Resp BP Pulse Ox
98.1 F 79 12 131/66 96
11/27/23 03:00 11/27/23 03:00 11/27/23 03:00 11/27/23 03:00 11/27/23 03:00
I&O
11/26/23 11/27/23 11/28/23
06:59 06:59 06:59
Intake Total 1830 / 1830 1500 / 1500
Output Total 670 / 670 1150 / 1150
Balance 1160 / 1160 350 / 350
Review of Systems
-
History Source: Patient
All other systems: Reviewed and negative
Data Reviewed
-
Diagnostic Radiology: Report Reviewed by me
Labs: Labs Reviewed by me
[2023-11-27 08:32] LABS: Absolute Neutrophils -Man Diff 6.9 10^3/uL (1.4-6.5); Band Neutrophils 4 % (0-3); Lymphocytes 34 % (20-51); Monocytes 3 % (2-9); Segmented Neutrophils 54 % (42-75)
[2023-11-27 08:33] LABS: Eosinophils 2 % (0-6); Metamyelocytes 2 % (-); Myelocytes 1 % (-); Normal RBC Morphology Yes; Platelets Checked Yes; Total Cells Counted 100
[2023-11-27] MEDS: EXELON 3 MG PO ×2 (08:36→20:56)
[2023-11-27] MEDS: PROTONIX 40 MG PO ×2 (08:36→20:57)
[2023-11-27] MEDS: SENOKOT-S 1 TABLET PO ×2 (08:36→20:57)
[2023-11-27] MEDS: ASPIRIN 325 MG PO (08:36)
[2023-11-27] MEDS: MIRALAX 17 GRAMS PO (08:36)
[2023-11-27] MEDS: CARAFATE 1 GRAM PO ×2 (08:36→20:56)
--- NOTE | 2023-11-27 09:55 | PN.CDI ---
CDI
- -
CDI:
Physician Documentation Request
Admit Date: 11/24/23 16:15
Dear Doctor Lulu,
Patient admitted with acute traumatic subcapital right hip fracture status post fall s/p right hip hemiarthroplasty.
H&P, 'Yesterday patient was walking with his walker around dinnertime and then he fell.'
Home medication's include Cholecalciferol (Vitamin D3).
Please clarify in your note the likely etiology/ etiologies of the right hip fracture:
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
Low level fall only
Other
Use of terms such as suspected, likely, concern for, or probable (associated with a specific diagnosis that is being evaluated, monitored, or treated as if it exists) are acceptable and can be coded in the inpatient setting, when documented at the
time of discharge.
Thank you,
Saida LOPEZ,RN,CCDS
CDI Specialist
Available via tiger text
Please use your independent medical judgment in providing your response.
--- NOTE | 2023-11-27 11:14 | CM ---
CM following re: discharge planning.
Reviewed pt's chart, met with pt.
Pt is POD#2 Right hip Mark. PT and OT recommend acute rehab. Per CM notes, a referral sent to [facility] and [facility].
CM spoke to [facility] nurse and she confirmed that pt is accepted for admissions to [facility] at location as soon as constipation resolved.
PT is aware and he expressed hs agreement with going to [facility].
[facility] nursing report: [phone]
Discharge instructions fax: [phone]
D/C plan: [facility] when medically stable.
CM will follow to assist pt with discharge to [facility].
[2023-11-27] MEDS: VITAMIN D3 (cholecalciferol) 50 MCG PO (12:15)
--- NOTE | 2023-11-27 14:31 | CON.MD ---
Documented by User: Kathy Mccrary PA-C 11/28/23 06:52
Consultation - Medical
-
Referring Provider: Elin Payne
Chief Complaint: Right Hip fracture, s/p hip arthroplasty
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
fracture. He is now post right hip hemiarthroplasty on 11/24.
Past Medical History: hypertension, GERD, stomach cancer on immunotherapy- last treatment 11/23/23, Parkinson's disease
Procedure History: Right hip hemiarthroplasty
Family History: non contributory
Social History:
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
Functional Level Currently: ADL- Max assist, Toilet transfer- Mod assist, Bed Mobility- Dependent, Ambulates 3 feet x 2 with rolling walker and Max assist
Tobacco: Denies
Alcohol: Denies
Drug use: Denies
Lives with: spouse
24-hour assistance available:
Number of floors: 1st
# steps to enter: 7? per patient
# steps to second floor: none
Potential First floor set up:yes
Driving:No
Occupation: Retired
�
Allergies:
Allergy/AdvReac Type Severity Reaction Status Date / Time
Penicillins Allergy Rash Verified 11/24/23 10:38
Review of Systems:
Constitutional: (x) Normal _
Eye: (x) Normal _
Ear/Nose/Throat: (x) Normal _
Respiratory: (x) Normal _
Cardiovascular: (x) Normal _
Gastrointestinal: (x) constipation
Genitourinary: (x) Normal _
Musculoskeletal: (x) right hip fracture
Integumentary: (x) Normal _
Neurologic: (x) parkinson's, tremors
Psychiatric: (x) Normal _
Endocrine: (x) Normal _
Hematologic/Lymphatic: (x) Normal _
Allergic/Immunologic: (x) Normal _
Medications:
Active Current Visit Medication List
Category Date Time Status
Acetaminophen [Tylenol] Med 11/24/23 17:35 Active
650 mg PO Q4HPRN PRN
Aspirin Med 11/25/23 18:00 Active
325 mg PO DAILY
Bisacodyl [Dulcolax] Med 11/24/23 18:15 Active
10 mg RECTAL [id number] PRN
Carbidopa/Levodopa Cr [Sinemet Cr 25-100 (Extended Med 11/24/23 18:15 Active
Release)]
1 tablet PO DAILY@1800
Carbidopa/Levodopa Cr [Sinemet Cr 25-100 (Extended Med 11/25/23 07:00 Active
Release)]
2.5 tablet PO BID@0700,1200
Cholecalciferol (Vitamin D3) [VITAMIN D3 ( Med 11/25/23 12:00 Active
cholecalciferol)]
50 mcg PO NOON
Docusate W/Senna [Senokot-S] Med 11/27/23 08:00 Active
1 tablet PO BID
Ezetimibe [Zetia] Med 11/24/23 22:00 Active
10 mg PO HS
Flush (0.9% Sodium Chloride) [Flush (Nss)] Med 11/24/23 17:00 Active
See Dose Instructions IV PER PROTOCOL
HYDROmorphone [Dilaudid] Med 11/25/23 10:26 Active
0.5 mg IV Q3HPRN PRN
Mag Hydrox/Al Hydrox/Simeth [Maalox] Med 11/25/23 10:26 Active
30 ml PO Q4HPRN PRN
Magnesium Hydroxide [Milk of Magnesia] Med 11/25/23 10:26 Active
30 ml PO DAILYPRN PRN
Morphine Sulfate Med 11/24/23 16:42 Active
1 mg IV Q4HPRN PRN
Ondansetron Injectable [Zofran] Med 11/25/23 10:26 Active
4 mg IV Q6HPRN PRN
Oxycodone [Roxicodone] Med 11/25/23 10:26 Active
10 mg PO Q4HPRN PRN
Oxycodone [Roxicodone] Med 11/25/23 10:26 Active
2.5 mg PO Q4HPRN PRN
Oxycodone [Roxicodone] Med 11/25/23 10:26 Active
5 mg PO Q4HPRN PRN
Pantoprazole [Protonix] Med 11/26/23 20:00 Active
40 mg PO BID
Polyethylene Glycol Powder [Miralax] Med 11/27/23 08:00 Active
17 grams PO DAILY
Rivastigmine Tartrate [Exelon] Med 11/24/23 20:00 Active
3 mg PO BID
Sucralfate [Carafate] Med 11/24/23 20:00 Active
1 gram PO BID
Tamsulosin [Flomax] Med 11/25/23 10:26 Active
0.4 mg PO DAILYPRN PRN
mirabegron [Myrbetriq] Med 11/26/23 22:00 Active
See Dose Instructions PO HS
Vitals:
Temp Pulse Resp BP Pulse Ox
97.9 F 71 16 132/60 95
11/27/23 07:20 11/27/23 07:20 11/27/23 07:20 11/27/23 07:20 11/27/23 10:58
Height 5 ft 9 in
Actual Weight 83.546 kg
Body Mass Index (BMI) 27.2
Physical Exam:
General Appearance/Observation: Well-developed, well-nourished individual in no apparent distress.
Pain/Comfort Assessment: right hip
Mood/Affect: Appropriate
Integumentary/Operative Site:right hip
�� Pressure Ulcer Evaluation: absent over heels.
��
�� Other Type of Wound: absent
��
Eyes: Conjunctiva/Lids: normal ��� Pupils: pupils equal round and reactive to light and Accommodation
Ears/Nose/Throat: oral mucosa moist,� throat clear.������������ Lips/Teeth/Gums: normal
Neck: No muscle spasm or tenderness
Cardiovascular: Heart: regular, no murmur
Pulses: dorsalis pedis 2+ bilaterally
Respiratory: Respiratory Effort/Chest Expansion: normal ������� Auscultation: Clear to auscultation bilaterally
Gastrointestinal: abdomen not tender, no distension, normal abdominal bowel sounds
Genitourinary: No Anderson
Extremities: Edema: None Cyanosis: None Trophic changes: None
Neurology Exam:
Orientation: Alert, Oriented to self, Time, Place
Memory: Intact for immediate medical concerns
Higher cortical function
Repetition: NT
Comprehension: slow processing
Two step command:
Naming: Intact
Cranial Nerves:
�� CNII: Pupillary light reflex: Intact��� Visual Field: Intact
�� CN III, IV, : Extraocular muscles: Intact
�� CN V: Facial Sensation at Forehead: Intact, Maxilla: Intact, Mandible: Intact
�� CN VII: Facial movement: Symmetric
�� CN VIII: Hearing: Normal
�� CN IX/X: Speech & swallow: low volume, hard to understand due to dysarthria or accent Position of Uvula: Midline
�� CN XI: Shoulder shrug: Symmetric
�� CN XII: Tongue protrusion: Midline. small white spot noted on tip of tongue
Sensory:
�� Light touch: Intact in bilateral upper and lower extremities
��
Reflexes:
�� Biceps: 1+ bilaterally
�� Brachioradialis: 1+ bilaterally
�� Triceps: 1+ bilaterally
�� Patellar: 1+ bilaterally
�� Achilles: absent bilaterally
�� Babinski: no response bilaterally
�� Adrienne: Negative bilaterally
Cerebellar: Dysmetria/Ataxia: NT
Musculoskeletal:
Motor: (Manual muscle scale 0-5)
Muscle SA EF WE EE FF FA HF KE DF EHL PF
Right� 5 5 5 5 5 5 *3 *3 4 4 4
Left 5 5 5 5 5 5 5 5 5 5 5
* due to pain
Tone: Normal in all extremities
Range of Motion: Passively within normal limits in all extremities, deferred hip
Lab Results
Labs
WBC 11.9 10^3/uL (4.8-10.8) H 11/27/23 06:21
RBC 3.75 10^6/uL (4.70-6.10) L 11/27/23 06:21
Hgb 10.8 g/dL (13.0-18.0) L 11/27/23 06:21
Hct 31.0 % (39.0-52.0) L 11/27/23 06:21
MCV 82.7 fL (80.0-94.0) 11/27/23 06:21
MCH 28.8 pg (27.0-31.0) 11/27/23 06:21
MCHC 34.8 g/dL (33.0-37.0) 11/27/23 06:21
RDW 16.3 % (11.5-14.5) H 11/27/23 06:21
Plt Count 202 10^3/uL (130-400) 11/27/23 06:21
Plt Count Comment Yes 11/27/23 06:21
MPV 9.4 fL (7.4-10.4) 11/27/23 06:21
Abs Immat Gran (auto) 0.1 10^3/uL (0-0.05) H 11/26/23 08:48
Absolute Neuts (auto) 9.3 10^3/uL (1.4-6.5) H 11/26/23 08:48
Absolute Lymphs (auto) 3.4 10^3/uL (1.2-3.4) 11/26/23 08:48
Absolute Monos (auto) 1.6 10^3/uL (0.1-0.6) H 11/26/23 08:48
Absolute Eos (auto) 0.0 10^3/uL (0-0.7) 11/26/23 08:48
Absolute Basos (auto) 0.0 10^3/uL (0-0.2) 11/26/23 08:48
Total Counted 100 11/27/23 06:21
Immature Gran % 0.7 % (0-0.5) H 11/26/23 08:48
Neutrophils % 64.2 % (42.2-75.2) 11/26/23 08:48
Lymphocytes % 23.5 % (20.5-51.1) 11/26/23 08:48
Monocytes % 11.1 % (1.7-9.3) H 11/26/23 08:48
Eosinophils % 0.3 % (0-6) 11/26/23 08:48
Basophils % 0.2 % (0-2) 11/26/23 08:48
Nucleated RBC % 0 % (-) 11/26/23 08:48
Abs Neuts (Manual) 6.9 10^3/uL (1.4-6.5) H 11/27/23 06:21
Segmented Neutrophils 54 % (42-75) 11/27/23 06:21
Band Neutrophils 4 % (0-3) H 11/27/23 06:21
Lymphocytes (Manual) 34 % (20-51) 11/27/23 06:21
Monocytes (Manual) 3 % (2-9) 11/27/23 06:21
Eosinophils (Manual) 2 % (0-6) 11/27/23 06:21
Metamyelocytes 2 % (-) 11/27/23 06:21
Myelocytes 1 % (-) 11/27/23 06:21
Normal RBC Morphology Yes 11/27/23 06:21
Sodium 133 mmol/L (135-145) L 11/27/23 06:21
Potassium 4.4 mmol/L (3.5-5.1) 11/27/23 06:21
Chloride 103 mmol/L (98-107) 11/27/23 06:21
Carbon Dioxide 24 mmol/L (22-30) 11/27/23 06:21
BUN 19 mg/dl (9-20) 11/27/23 06:21
Creatinine 0.8 mg/dL (0.7-1.3) 11/27/23 06:21
Estimated Creat Clear 64 ml/min 11/27/23 06:21
eGFR > 60.00 11/27/23 06:21
Glucose 102 mg/dl (70-99) H 11/27/23 06:21
Calcium 8.5 mg/dl (8.4-10.2) 11/27/23 06:21
Total Bilirubin 0.8 mg/dl (0.2-1.3) 11/24/23 10:36
AST 30 U/L (17-59) 11/24/23 10:36
ALT < 10 U/L (0-50) 11/24/23 10:36
Alkaline Phosphatase 76 U/L (38-126) 11/24/23 10:36
Total Protein 6.2 g/dl (6.3-8.2) L 11/24/23 10:36
Albumin 3.6 g/dl (3.5-5.0) 11/24/23 10:36
Urine Color Yellow 11/26/23 10:36
Urine Clarity Clear (Clear) 11/26/23 10:36
Urine pH 6.0 (5.0-9.0) 11/26/23 10:36
Ur Specific [place] 1.025 (<1.030) 11/26/23 10:36
Urine Ketones Trace (Negative) A 11/26/23 10:36
Ur Occult Blood Reflex Negative (Negative) 11/26/23 10:36
Urine Nitrite (Reflex) Negative (Negative) 11/26/23 10:36
Urine Bilirubin Negative (Negative) 11/26/23 10:36
Urine Urobilinogen 1+ (Neg - 1+) 11/26/23 10:36
Leukocyte Esterase Rfl Negative (Negative) 11/26/23 10:36
Urine Glucose Negative (Negative) 11/26/23 10:36
Urine Albumin (Reflex) Negative (Neg - Trace) 11/26/23 10:36
Blood Type O POS 11/24/23 10:36
Antibody Screen Negative (Negative) 11/24/23 10:36
�
Diagnostic Results: as per HPI
Assessment
This is 88-year-old male with PMH of ( hypertension, GERD, stomach cancer on immunotherapy, Parkinson's disease came to the hospital after a fall the night prior resulting in right hip pain. X0ray reveals acute traumatic subcapital right hip
fracture. She is post right hip hemiarthroplasty on 11/24
Plan
PT/OT to increase independence with ADLs, improve balance, coordination, endurance, strength, mobility, community reintegration, decreased burden of care on others and family education.
Ambulatory Dysfunction: Cont PT/OT
Hip fracture/s/p right hip hemiarthroplasty 11/24: Acute traumatic subcapital right hip fracture status post fall. WBAT to RLE with walker. THPs x6 weeks. Abductor pillow at rest. Monitor incision, pain control, hip precautions/incision care per
orthopedics
Parkinson's disease: continue Sinemet 25/100 - 2.5 tbs bid and 1 tab qd. Continue with levodopa carbidopa, rivastigmine.
HTN: not on medication, monitor closely
HLD: Atorvastatin 10mg HS
Anemia: Likely multifactorial.� Continue to monitor.
Psych: Psychology consult.� Monitor mood, adjust medications as needed.
Skin: monitor for pressure sores/rashes/lesions.
Pain: acetaminophen or oxycodone, morphine as needed.
Bowel/constipation: Colace, Senna, bisacodyl daily. if no BM with po try suppository, magnesium citrate. consider abdominal xray if no BM with all regimen on board.
Overactive Bladder: Time void, PVRs, PRN straight cath. Cont Myrbetriq,
Urinary retention: flomax 0.4mg qd
GI Prophylaxis/: Pantoprazole 40mg bid, sulcrafate
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 Gallagher outpatient
DVT Prophylaxis: Mechanical and ASA 325mg qd
Pulmonary: Incentive spirometry
Safety: Continue to reinforce assistance with all transfers.
Code Status:� Full code
Dispo (date/plan/equipment needs): Home with family care.� Social history reviewed.
Functional and Medical Goals: Modified Independent with ADL�s, ambulation, transfers
Discharge Destination: Acute Inpatient Rehab.
Summary of recommendations: Patient with ambulatory dysfunction s/p right hip hemiarthroplasty on 11/24 with current status of Mod assist for transfer, Max assist for ADL and dependent for bed mobility, would benefit from acute inpatient
rehabilitation when medically stable for discharge on PO pain medications, and repeat WBC and Hgb are stable and moving in the right directions.
Bowel/constipation:No bowel movement in days- Colace, Senna, bisacodyl daily. if no BM with po try suppository, magnesium citrate. consider abdominal xray if no BM with all regimen on board. Needs to have significant bowel movement prior to
discharge or transfer. Minimized narcotic use if possible while maintaining pain control.
Ambulatory Dysfunction: Cont PT/OT
Hip fracture/s/p right hip hemiarthroplasty 11/24: Acute traumatic subcapital right hip fracture status post fall. WBAT to RLE with walker. THPs x6 weeks. Abductor pillow at rest. Monitor incision, pain control, hip precautions/incision care per
orthopedics
Parkinson's disease: continue Sinemet 25/100 - 2.5 tbs bid and 1 tab qd. Continue with levodopa carbidopa, rivastigmine
Hypotension: Per therapy notes, episodes of hypotension. Check orthostatic vitals. TEDS stockings. Trial of Midodrine 2.5mg bid to tid, 0700, 1200, 1600 during the day if symptomatic. Give 30 minutes prior to getting out of bed, sitting up or at an
incline to prevent elevated BP in supine position. Teds stocking. Monitor
Skin: monitor for pressure sores/rashes/lesions.
Pain: acetaminophen or oxycodone, morphine as needed.
Overactive Bladder: Time void, PVRs, PRN straight cath. Cont Myrbetriq,
Urinary retention: flomax 0.4mg qd
GI Prophylaxis/: Pantoprazole 40mg bid, sulcrafate
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 Gallagher outpatient
DVT Prophylaxis: Mechanical and ASA 325mg qd
Pulmonary: Incentive spirometry
Safety: Continue to reinforce assistance with all transfers.
Thank you for allowing me to care for your patient. Please contact me with any questions or concerns.
This note was dictated using a voice recognition system. Please excuse any typographical errors from molder operator. If you believe there are any discrepancies, please notify our office.
What barriers for discharge are there?
Will continue to follow patient.
Will sign off, please re-consult if needed.
Thank you for allowing me to care for your patient. Please contact me with any questions or concerns.
This note was dictated using a voice recognition system. Please excuse any typographical errors from molder operator. If you believe there are any discrepancies, please notify our office.

Documented by User: Raleigh Roman MD 11/28/23 15:09
Consultation - Medical
-
Referring Provider: Elin Payne
Chief Complaint: Right Hip fracture, s/p hip arthroplasty
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
fracture. He is now post right hip hemiarthroplasty on 11/24. Overall doing well after surgery. Has some pain, controlled with medications.
Past Medical History: hypertension, GERD, stomach cancer on immunotherapy- last treatment 11/23/23, Parkinson's disease
Procedure History: Right hip hemiarthroplasty
Family History: non contributory
Social History:
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
Functional Level Currently: ADL- Max assist, Toilet transfer- Mod assist, Bed Mobility- Dependent, Ambulates 3 feet x 2 with rolling walker and Max assist
Tobacco: Denies
Alcohol: Denies
Drug use: Denies
Lives with: spouse
24-hour assistance available: Yes
Number of floors: 1st
# steps to enter: 7? per patient
# steps to second floor: none
Potential First floor set up:yes
Driving:No
Occupation: Retired
�
Allergies:
Allergy/AdvReac Type Severity Reaction Status Date / Time
Penicillins Allergy Rash Verified 11/24/23 10:38
Review of Systems:
Constitutional: (x) abNormal _fatigue
Eye: (x) Normal _
Ear/Nose/Throat: (x) Normal _
Respiratory: (x) Normal _
Cardiovascular: (x) Normal _
Gastrointestinal: (x) constipation
Genitourinary: (x) Normal _
Musculoskeletal: (x) right hip fracture
Integumentary: (x) Normal _
Neurologic: (x) parkinson's, tremors
Psychiatric: (x) Normal _
Endocrine: (x) Normal _
Hematologic/Lymphatic: (x) Normal _
Allergic/Immunologic: (x) Normal _
Medications:
Active Current Visit Medication List
Category Date Time Status
Acetaminophen [Tylenol] Med 08/02/24 17:35 Active
650 mg PO Q4HPRN PRN
Aspirin Med 11/25/23 18:00 Active
325 mg PO DAILY
Bisacodyl [Dulcolax] Med 11/24/23 18:15 Active
10 mg RECTAL [id number] PRN
Carbidopa/Levodopa Cr [Sinemet Cr 25-100 (Extended Med 11/24/23 18:15 Active
Release)]
1 tablet PO DAILY@1800
Carbidopa/Levodopa Cr [Sinemet Cr 25-100 (Extended Med 11/25/23 07:00 Active
Release)]
2.5 tablet PO BID@0700,1200
Cholecalciferol (Vitamin D3) [VITAMIN D3 ( Med 11/25/23 12:00 Active
cholecalciferol)]
50 mcg PO NOON
Docusate W/Senna [Senokot-S] Med 11/27/23 08:00 Active
1 tablet PO BID
Ezetimibe [Zetia] Med 11/24/23 22:00 Active
10 mg PO HS
Flush (0.9% Sodium Chloride) [Flush (Nss)] Med 11/24/23 17:00 Active
See Dose Instructions IV PER PROTOCOL
HYDROmorphone [Dilaudid] Med 11/25/23 10:26 Active
0.5 mg IV Q3HPRN PRN
Mag Hydrox/Al Hydrox/Simeth [Maalox] Med 11/25/23 10:26 Active
30 ml PO Q4HPRN PRN
Magnesium Hydroxide [Milk of Magnesia] Med 11/25/23 10:26 Active
30 ml PO DAILYPRN PRN
Morphine Sulfate Med 11/24/23 16:42 Active
1 mg IV Q4HPRN PRN
Ondansetron Injectable [Zofran] Med 11/25/23 10:26 Active
4 mg IV Q6HPRN PRN
Oxycodone [Roxicodone] Med 11/25/23 10:26 Active
10 mg PO Q4HPRN PRN
Oxycodone [Roxicodone] Med 11/25/23 10:26 Active
2.5 mg PO Q4HPRN PRN
Oxycodone [Roxicodone] Med 11/25/23 10:26 Active
5 mg PO Q4HPRN PRN
Pantoprazole [Protonix] Med 11/26/23 20:00 Active
40 mg PO BID
Polyethylene Glycol Powder [Miralax] Med 11/27/23 08:00 Active
17 grams PO DAILY
Rivastigmine Tartrate [Exelon] Med 11/24/23 20:00 Active
3 mg PO BID
Sucralfate [Carafate] Med 11/24/23 20:00 Active
1 gram PO BID
Tamsulosin [Flomax] Med 11/25/23 10:26 Active
0.4 mg PO DAILYPRN PRN
mirabegron [Myrbetriq] Med 11/26/23 22:00 Active
See Dose Instructions PO HS
Vitals:
Temp Pulse Resp BP Pulse Ox
97.9 F 71 16 132/60 95
11/27/23 07:20 11/27/23 07:20 11/27/23 07:20 11/27/23 07:20 11/27/23 10:58
Height 5 ft 9 in
Actual Weight 83.546 kg
Body Mass Index (BMI) 27.2
Physical Exam:
General Appearance/Observation: Well-developed, well-nourished male in no apparent distress.
Pain/Comfort Assessment: right hip
Mood/Affect: Appropriate
Integumentary/Operative Site:right hip Aquacel intact
�� Pressure Ulcer Evaluation: absent over heels.
�
Eyes: Conjunctiva/Lids: normal ��� Pupils: pupils equal round and reactive to light and Accommodation
Ears/Nose/Throat: oral mucosa moist,� throat clear.������������ Lips/Teeth/Gums: normal
Neck: Mild spasm, no tenderness
Cardiovascular: Heart: regular, no murmur
Pulses: dorsalis pedis 2+ bilaterally
Respiratory: Respiratory Effort/Chest Expansion: normal ������� Auscultation: Clear to auscultation bilaterally
Gastrointestinal: abdomen not tender, no distension, normal abdominal bowel sounds
Genitourinary: No Anderson
Extremities: Edema: None Cyanosis: None Trophic changes: None
Neurology Exam:
Orientation: Alert, Oriented to self, Time, Place
Memory: Intact for immediate medical concerns
Comprehension: slow processing
Two step command: intact
Naming: Intact
Cranial Nerves:
�� CNII: Pupillary light reflex: Intact��� Visual Field: Intact
�� CN III, IV, : Extraocular muscles: Intact
�� CN V: Facial Sensation at Forehead: Intact, Maxilla: Intact, Mandible: Intact
�� CN VII: Facial movement: Symmetric
�� CN VIII: Hearing: Normal
�� CN IX/X: Speech & swallow: low volume, hard to understand due to dysarthria Position of Uvula: Midline
�� CN XI: Shoulder shrug: Symmetric
�� CN XII: Tongue protrusion: Midline. small white spot noted on tip of tongue
Sensory:
�� Light touch: Intact in bilateral upper and lower extremities
��
Reflexes:
�� Biceps: 2+ bilaterally
�� Brachioradialis: 2+ bilaterally
�� Triceps: 2+ bilaterally
�� Patellar: 2 bilaterally
�� Achilles: absent bilaterally
�� Babinski: no response bilaterally
�� Adrienne: Negative bilaterally
Cerebellar: Dysmetria/Ataxia: has motor control concerns with tremors.
Musculoskeletal:
Motor: (Manual muscle scale 0-5)
Muscle SA EF WE EE FF FA HF KE DF EHL PF
Right� 5 5 5 5 5 5 *3 *3 4 4 4
Left 5 5 5 5 5 5 5 5 5 5 5
* due to pain
Tone: Normal in all extremities
Range of Motion: Passively within normal limits in all extremities, deferred right hip
Lab Results
Labs
WBC 11.9 10^3/uL (4.8-10.8) H 11/27/23 06:21
RBC 3.75 10^6/uL (4.70-6.10) L 11/27/23 06:21
Hgb 10.8 g/dL (13.0-18.0) L 11/27/23 06:21
Hct 31.0 % (39.0-52.0) L 11/27/23 06:21
MCV 82.7 fL (80.0-94.0) 11/27/23 06:21
MCH 28.8 pg (27.0-31.0) 11/27/23 06:21
MCHC 34.8 g/dL (33.0-37.0) 11/27/23 06:21
RDW 16.3 % (11.5-14.5) H 11/27/23 06:21
Plt Count 202 10^3/uL (130-400) 11/27/23 06:21
Plt Count Comment Yes 11/27/23 06:21
MPV 9.4 fL (7.4-10.4) 11/27/23 06:21
Abs Immat Gran (auto) 0.1 10^3/uL (0-0.05) H 11/26/23 08:48
Absolute Neuts (auto) 9.3 10^3/uL (1.4-6.5) H 11/26/23 08:48
Absolute Lymphs (auto) 3.4 10^3/uL (1.2-3.4) 11/26/23 08:48
Absolute Monos (auto) 1.6 10^3/uL (0.1-0.6) H 11/26/23 08:48
Absolute Eos (auto) 0.0 10^3/uL (0-0.7) 11/26/23 08:48
Absolute Basos (auto) 0.0 10^3/uL (0-0.2) 11/26/23 08:48
Total Counted 100 11/27/23 06:21
Immature Gran % 0.7 % (0-0.5) H 11/26/23 08:48
Neutrophils % 64.2 % (42.2-75.2) 11/26/23 08:48
Lymphocytes % 23.5 % (20.5-51.1) 11/26/23 08:48
Monocytes % 11.1 % (1.7-9.3) H 11/26/23 08:48
Eosinophils % 0.3 % (0-6) 11/26/23 08:48
Basophils % 0.2 % (0-2) 11/26/23 08:48
Nucleated RBC % 0 % (-) 11/26/23 08:48
Abs Neuts (Manual) 6.9 10^3/uL (1.4-6.5) H 11/27/23 06:21
Segmented Neutrophils 54 % (42-75) 11/27/23 06:21
Band Neutrophils 4 % (0-3) H 11/27/23 06:21
Lymphocytes (Manual) 34 % (20-51) 11/27/23 06:21
Monocytes (Manual) 3 % (2-9) 11/27/23 06:21
Eosinophils (Manual) 2 % (0-6) 11/27/23 06:21
Metamyelocytes 2 % (-) 11/27/23 06:21
Myelocytes 1 % (-) 11/27/23 06:21
Normal RBC Morphology Yes 11/27/23 06:21
Sodium 133 mmol/L (135-145) L 11/27/23 06:21
Potassium 4.4 mmol/L (3.5-5.1) 11/27/23 06:21
Chloride 103 mmol/L (98-107) 11/27/23 06:21
Carbon Dioxide 24 mmol/L (22-30) 11/27/23 06:21
BUN 19 mg/dl (9-20) 11/27/23 06:21
Creatinine 0.8 mg/dL (0.7-1.3) 11/27/23 06:21
Estimated Creat Clear 64 ml/min 11/27/23 06:21
eGFR > 60.00 11/27/23 06:21
Glucose 102 mg/dl (70-99) H 11/27/23 06:21
Calcium 8.5 mg/dl (8.4-10.2) 11/27/23 06:21
Total Bilirubin 0.8 mg/dl (0.2-1.3) 11/24/23 10:36
AST 30 U/L (17-59) 11/24/23 10:36
ALT < 10 U/L (0-50) 11/24/23 10:36
Alkaline Phosphatase 76 U/L (38-126) 11/24/23 10:36
Total Protein 6.2 g/dl (6.3-8.2) L 11/24/23 10:36
Albumin 3.6 g/dl (3.5-5.0) 11/24/23 10:36
Urine Color Yellow 11/26/23 10:36
Urine Clarity Clear (Clear) 11/26/23 10:36
Urine pH 6.0 (5.0-9.0) 11/26/23 10:36
Ur Specific [place] 1.025 (<1.030) 11/26/23 10:36
Urine Ketones Trace (Negative) A 11/26/23 10:36
Ur Occult Blood Reflex Negative (Negative) 11/26/23 10:36
Urine Nitrite (Reflex) Negative (Negative) 11/26/23 10:36
Urine Bilirubin Negative (Negative) 11/26/23 10:36
Urine Urobilinogen 1+ (Neg - 1+) 11/26/23 10:36
Leukocyte Esterase Rfl Negative (Negative) 11/26/23 10:36
Urine Glucose Negative (Negative) 11/26/23 10:36
Urine Albumin (Reflex) Negative (Neg - Trace) 11/26/23 10:36
Blood Type O POS 11/24/23 10:36
Antibody Screen Negative (Negative) 11/24/23 10:36
�
Diagnostic Results: as per HPI
Assessment
88-year-old male with PMH of ( hypertension, GERD, stomach cancer on immunotherapy, Parkinson's disease came to the hospital after a fall the night prior resulting in right hip pain. X0ray reveals acute traumatic subcapital right hip fracture. She
is post right hip hemiarthroplasty on 11/24
Plan
PT/OT to increase independence with ADLs, improve balance, coordination, endurance, strength, mobility, community reintegration, decreased burden of care on others and family education.
Ambulatory Dysfunction: Cont PT/OT
Hip fracture/s/p right hip hemiarthroplasty 11/24: Acute traumatic subcapital right hip fracture status post fall. WBAT to RLE with walker. THPs x6 weeks. Abductor pillow at rest. Monitor incision, pain control, hip precautions/incision care per
orthopedics
Parkinson's disease: continue Sinemet 25/100 - 2.5 tbs bid and 1 tab qd. Continue with levodopa carbidopa, rivastigmine.
HTN: not on medication, monitor closely
Hypotension: Per therapy notes, episodes of hypotension. Check orthostatic vitals. TEDS stockings. Trial of Midodrine 2.5mg bid to tid, 0700, 1200, 1600 during the day if symptomatic. Give 30 minutes prior to getting out of bed, sitting up or at an
incline to prevent elevated BP in supine position. Teds stocking. Monitor Might need to hold Flomax.
HLD: Atorvastatin 10mg HS
Anemia: Likely multifactorial.� Continue to monitor.
Psych: Psychology consult.� Monitor mood, adjust medications as needed.
Skin: monitor for pressure sores/rashes/lesions.
Pain: acetaminophen or oxycodone, morphine as needed.
Bowel/constipation: Colace, Senna, bisacodyl daily. if no BM with po try suppository, magnesium citrate. consider abdominal xray if no BM with all regimen on board.
Overactive Bladder: Time void, PVRs, PRN straight cath. Cont Myrbetriq,
Urinary retention: flomax 0.4mg qd
GI Prophylaxis/: Pantoprazole 40mg bid, sulcrafate
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 Gallagher outpatient
DVT Prophylaxis: Mechanical and ASA 325mg qd
Pulmonary: Incentive spirometry
Safety: Continue to reinforce assistance with all transfers.
Code Status:� Full code
Dispo (date/plan/equipment needs): Home with family care.� Social history reviewed.
Functional and Medical Goals: Modified Independent with ADL�s, ambulation, transfers
Discharge Destination: Acute Inpatient Rehab.
Summary of recommendations: Patient with ambulatory dysfunction s/p right hip hemiarthroplasty on 11/24 with current status of Mod assist for transfer, Max assist for ADL and dependent for bed mobility, would benefit from acute inpatient
rehabilitation when medically stable for discharge on PO pain medications, and repeat WBC and Hgb are stable and moving in the right directions.
Bowel/constipation:No bowel movement in days- Colace, Senna, bisacodyl daily. if no BM with po try suppository, magnesium citrate. consider abdominal xray if no BM with all regimen on board. Needs to have significant bowel movement prior to
discharge or transfer. Minimized narcotic use if possible while maintaining pain control.
Ambulatory Dysfunction: Cont PT/OT
Hip fracture/s/p right hip hemiarthroplasty 11/24: Acute traumatic subcapital right hip fracture status post fall. WBAT to RLE with walker. THPs x6 weeks. Abductor pillow at rest. Monitor incision, pain control, hip precautions/incision care per
orthopedics
Parkinson's disease: continue Sinemet 25/100 - 2.5 tbs bid and 1 tab qd. Continue with levodopa carbidopa, rivastigmine
Hypotension: Per therapy notes, episodes of hypotension. Check orthostatic vitals. TEDS stockings. Trial of Midodrine 2.5mg bid to tid, 0700, 1200, 1600 during the day if symptomatic. Give 30 minutes prior to getting out of bed, sitting up or at an
incline to prevent elevated BP in supine position. Teds stocking. Monitor Might need to hold Flomax.
Skin: monitor for pressure sores/rashes/lesions.
Pain: acetaminophen or oxycodone, morphine as needed.
Overactive Bladder: Time void, PVRs, PRN straight cath. Cont Myrbetriq,
Urinary retention: flomax 0.4mg qd
GI Prophylaxis/: Pantoprazole 40mg bid, sulcrafate
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 Gallagher outpatient
DVT Prophylaxis: Mechanical and ASA 325mg qd
Pulmonary: Incentive spirometry
Safety: Continue to reinforce assistance with all transfers.
Thank you for allowing me to care for your patient. Please contact me with any questions or concerns.
Attending Statement:
I saw and examined the patient 11/27/23.� Reviewed care plan with patient, therapy, nursing, and physician paraprofessional education assistant.� I agree with the above subjective and physical exam, and plan as documented by RODGER Mccrary with adjustments made as necessary.
A total of 60 minutes were spent with the patient preparing for the evaluation, obtaining history, performing examination and evaluation, counseling, data review, case management, care coordination, purchase order checker, and EMR documentation.
[2023-11-27] MEDS: SINEMET CR 25-100 (EXTENDED RELEASE) 1 TABLET PO (17:31)
--- NOTE | 2023-11-27 19:09 | PTCARENOTE ---
Received in report, pt was successful and had a large bowel movement in the afternoon.
[2023-11-27] MEDS: NON-FORMULARY ITEM 50 MG PO (20:57)
[2023-11-27] MEDS: ZETIA 10 MG PO (20:58)
--- NOTE | 2023-11-28 01:11 | PTCARENOTE ---
Patient restless, taking off gown and highway technician. Redressed and reapplied highway technician multiple times. Bladder scanned for 564 mls, straight cath w/16 F catheter, for 750 mls clear yellow urine. Patient tolerated well, resting
comfortably in bed, calm, call elizondo in reach.
[2023-11-28 03:05] VITALS: BP 118/56
[2023-11-28] MEDS: SINEMET CR 25-100 (EXTENDED RELEASE) 2.5 TABLET PO ×2 (05:55→11:37)
[2023-11-28 06:00] VITALS: BMI 27.2
[2023-11-28] MEDS: PROTONIX 40 MG PO (07:32)
[2023-11-28] MEDS: EXELON 3 MG PO (07:32)
[2023-11-28] MEDS: SENOKOT-S 1 TABLET PO (07:32)
[2023-11-28] MEDS: ASPIRIN 325 MG PO (07:32)
[2023-11-28] MEDS: CARAFATE 1 GRAM PO (07:32)
[2023-11-28] MEDS: MIRALAX 17 GRAMS PO (07:33)
[2023-11-28 07:42] VITALS: BP 117/67
--- NOTE | 2023-11-28 08:31 | W.PN.HOSP.TC ---
Addendum entered and electronically signed by Elin Lawson MD 11/29/23 12:36:
fracture
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
Original Note:
Today's Communication/Plan
-
DC to [facility] today
Assessment / Plan
Assessment / Plan
General: Well Nourished and No Apparent Distress
HEENT: Anicteric and Moist mucous membranes
Respiratory: Clear and Non Labored Respirations; No Wheezes
Cardiac: S1/S2 and Regular Rhythm
GI: Soft, Non Tender, Non Distended and Normal Bowel Sounds
Musculoskeletal: No Edema
Neuro: Awake, Alert and Oriented
Psych: Calm and Intact Judgment/Insight
88-year-old male with past medical history of hypertension, GERD, stomach cancer on immunotherapy, Parkinson's disease came to the hospital after a fall night prior resulting in right hip pain found to have right hip fracture.\\
Acute traumatic subcapital right hip fracture status post fall
-appreciate ortho
-s/p right hip hemiarthroplasty 11/24
-WBAT to RLE with walker. THPs x6 weeks. Abductor pillow at rest.
--Recommend ASA 325 mg daily x4 weeks for DVT ppx.
Pain control
-dispo planning, [facility] eval
Constipation
-adjust bowel regimen
hx of Parkinson's disease
Continue with levodopa carbidopa, rivastigmine
UA lcear
Hyponatremia
monitor
History of overactive bladder
On Myrbetriq
History of GERD
Continue PPI, Carafate
History of gastric malignancy
On immunotherapy, last treatment 11/23/[address] Gallagher outpatient
History of hypertension
Not on any medications
HLD
cw zetia
DVT prophylaxis
SCDs; ASA
Full code
I spent a total of 52 minutes with the patient or on the floor. More than 50% of this time involved counseling and coordination of care.
Anticipated Discharge: Today
Subjective/Interval History
-
Date of Service: November 28, 2023
no new complaints
denies pain
Objective Data
-
Labs:
Laboratory Results
11/28/23
06:00
WBC Pending
Hgb Pending
Hct Pending
Plt Count Pending
Vital Signs:
Vital Signs
Temp Pulse Resp BP Pulse Ox
98.3 F 77 17 117/67 99
11/28/23 07:42 11/28/23 07:42 11/28/23 07:42 11/28/23 07:42 11/28/23 07:42
I&O
11/27/23 11/28/23 11/29/23
06:59 06:59 06:59
Intake Total 1500 / 1500 360 / 360
Output Total 1150 / 1150 1850 / 1850 75 / 75
Balance 350 / 350 -1490 / -1490 -75 / -75
Review of Systems
-
History Source: Patient
All other systems: Reviewed and negative
Data Reviewed
-
Diagnostic Radiology: Report Reviewed by me
Labs: Labs Reviewed by me
--- NOTE | 2023-11-28 08:38 | W.DS.TRANS ---
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
-
Discharge Instructions:
Discharge Diagnosis/Procedures Displaced right femoral neck fracture. status
post Right hip hemiarthroplasty on 11/25/23
Diet Regular
Activity With assistance,As tolerated,With Walker
Additional Activity THPs x 6 weeks
Driving Restrictions No driving
Bathing Restrictions OK to Shower
Other Services PT,OT
Instructions:
Stand-Alone Forms:
Changes to Home Medications: Yes
Discharge Medications:
DC Medications w/original date entered in [facility]
carbidopa ER 25 mg-levodopa 100 mg tablet,extended release 1 tab PO QPM@1800 Neurological Condition 08/02/23
carbidopa ER 25 mg-levodopa 100 mg tablet,extended release 2.5 tab PO BID@0700,1200 Neurological Condition 08/02/23
cholecalciferol (vitamin D3) 50 mcg (2,000 unit) tablet (Vitamin D3) 50 mcg PO NOON Supplement 08/02/23
esomeprazole magnesium 40 mg capsule,delayed release 40 mg PO BID Gastrointestinal Issue 08/02/23
mirabegron 50 mg tablet,extended release 24 hr (Myrbetriq) 50 mg PO HS Urinary Issue 08/02/23
rivastigmine tartrate 3 mg capsule 3 mg PO BID Neurological Condition 08/02/23
ezetimibe 10 mg tablet (Zetia) 10 mg PO HS High Cholesterol 11/24/23
sucralfate 1 gram tablet (Carafate) 1 g PO BID Gastrointestinal Issue 11/24/23
acetaminophen 325 mg tablet 650 mg (2 x 325 mg) PO Q4HPRN PRN mild pain/ISIDRO/temp> 100.4F #30 tabs 11/28/23
aspirin 325 mg tablet 325 mg PO DAILY #24 tabs 11/28/23
oxycodone 5 mg tablet 2.5 mg (1/2 x 5 mg) PO Q4HPRN PRN moderate pain #15 tabs 11/28/23
oxycodone 5 mg tablet 5 mg PO Q4HPRN PRN severe pain #10 tabs 11/28/23
polyethylene glycol 3350 17 gram oral powder packet (HealthyLax) 17 g PO DAILY #30 ea 11/28/23
sennosides 8.6 mg-docusate sodium 50 mg tablet 1 tab PO BID #14 tabs 11/28/23
tamsulosin 0.4 mg capsule 0.4 mg PO DAILY #30 caps 11/28/23
Home Medication Changes
asa 325mg daily for DVT PPx x 4 weeks
Flomax 0.4mg PO QD x 7 days then as needed (to be monitored outpatient)
oxy 2.5/5 PRN moderate/severe pain
bowel regimen: miralax daily; colace and senna
tylenol as needed
Pending Results: No
[2023-11-28 10:13] LABS: Hematocrit 31.9 % (39.0-52.0); Hemoglobin 10.7 g/dL (13.0-18.0); Mean Corp Hgb Conc. 33.5 g/dL (33.0-37.0); Mean Corpuscular Hgb 28.1 pg (27.0-31.0); Mean Corpuscular Volume 83.7 fL (80.0-94.0); Mean Platelet Volume 9.2 fL (7.4-10.4); Platelet Count 242 10^3/uL (130-400); Red Blood Cell Count 3.81 10^6/uL (4.70-6.10); Red Cell Dist. Width 16.4 % (11.5-14.5); White Blood Cell Count 11.6 10^3/uL (4.8-10.8)
[2023-11-28] MEDS: VITAMIN D3 (cholecalciferol) 50 MCG PO (11:37)
--- NOTE | 2023-11-28 12:29 | CM ---
Received call from Amber in admissions at [facility] who confirmed that she can take patient today. # for report and fax in previous note. RN updated.
Plan: Case management will continue to follow and assist with discharge planning. Vega,
--- NOTE | 2023-11-28 13:03 | W.DCSUMMARY ---
Discharge Summary
Discharge Data
Date of Admission: 11/24/23
Date of Discharge: 11/28/23
-
Pending Results: No
Hospital Course
Discharging Physician : Dr. Elin Lawson
Disposition : [facility], Acute Rehab
Principal Discharge diagnosis : Displaced right femoral neck fracture. status post Right hip hemiarthroplasty on 11/25/23
Hospital Course :
Mr. Abdirashid Valverde is a 88 yo man with hx essential HTN, GERD, stomach cancer on immunotherapy, Parkinson's disease who presents to the ER after a fall resulting in right hip pain, found to have a displaced right femoral neck fracture. Patient was
admittedf to medicine with orthopedics consulting and underwent a right hip hemiarthroplasty day after admission. Post-op course complicated by constipation and urinary retention. He was given a bowel regimen and had a BM prior to DC. Anderson
placed for persistent retention and he is discharged on flomax. He is prescribed Asa 325mg daily x 4 weeks for DVT Prophylaxis. He is discharged to acute rehab.
Time spent on discharge was 35 minutes.
Important imaging findings :
Procedure findings :
11/25/23
POSTOPERATIVE DIAGNOSIS: Displaced right femoral neck fracture.
PROCEDURE: Right hip hemiarthroplasty.
Discharge Plan
-
Patient Disposition: Acute Rehab Facility
Discharge Diagnosis/Procedures: Displaced right femoral neck fracture. status post Right hip hemiarthroplasty on 11/25/23
Condition: Fair
Diet: Regular
Activity: With assistance, As tolerated and With Walker
Additional Activity: THPs x 6 weeks, Abductor pillow at rest.
Driving Restrictions: No driving
Bathing Restrictions: OK to Shower
Other Services: PT and OT
Activity Restrictions/Additional Instructions:
post-op course complicated by Urinary retention. Anderson placed 11/27. Voiding trial when mobility improves.
--Maintain surgical dressing until 7-10 days post-op.
--Staple removal at 2 weeks post-op. Outpatient follow up 4 weeks post-op.
Referrals:
Saida Bassett I., DO [Active] - in one month
Jeff Salinas, DO [Family Provider] - in less than 1 week
Additional Discharge Medication Instructions: asa 325mg PO daily x 4 weeks for DVT prophylaxis
Prescriptions:
New
aspirin 325 mg Tablet
325 mg PO DAILY Qty: 24 0RF
polyethylene glycol 3350 [HealthyLax] 17 gram Powder In Packet
17 g PO DAILY Qty: 30 0RF
tamsulosin 0.4 mg Capsule
0.4 mg PO DAILY Qty: 30 0RF
Rx Instructions:
Take daily x 1 week then as needed for urinary retention
sennosides-docusate sodium 8.6-50 mg Tablet
1 tab PO BID Qty: 14 0RF
oxycodone 5 mg Tablet
2.5 mg PO Q4HPRN PRN (Reason: moderate pain) Qty: 15 0RF
oxycodone 5 mg Tablet
5 mg PO Q4HPRN PRN (Reason: severe pain) Qty: 10 0RF
acetaminophen 325 mg Tablet
650 mg PO Q4HPRN PRN (Reason: mild pain/ISIDRO/temp> 100.4F) Qty: 30 0RF
Continued
carbidopa-levodopa 25-100 mg tablet extended release
2.5 tab PO BID@0700,1200
carbidopa-levodopa 25-100 mg tablet extended release
1 tab PO QPM@1800
esomeprazole magnesium 40 mg capsule,delayed release(DR/EC)
40 mg PO BID
rivastigmine tartrate 3 mg capsule
3 mg PO BID
cholecalciferol (vitamin D3) [Vitamin D3] 50 mcg (2,000 unit) Tablet
50 mcg PO NOON
mirabegron [Myrbetriq] 50 mg tablet extended release 24 hr
50 mg PO HS
sucralfate [Carafate] 1 gram Tablet
1 g PO BID
ezetimibe [Zetia] 10 mg Tablet
10 mg PO HS
Discharge Orders:
Discharge Patient (As Directed); Ordered 11/28/23
Ordered By: Elin Lawson
Discharge Date and Time
Print Language: LITHUANIAN
== END 2023-11-28 14:05 | DRG 522 ==
LOC: 2 SOUTH 16:15
PROVIDERS: ADMITTING PHYSICIAN Internal Medicine; ATTENDING PHYSICIAN Student in an Organized Health Care Education/Training Program; CONSULT PHYSICIAN Physical Medicine & Rehabilitation; EMERGENCY PHYSICIAN Emergency Medicine; FAMILY PHYSICIAN Family Medicine; OTHER PHYSICIAN Orthopaedic Surgery
PROC: 0SRR0J9 Replacement of Right Hip Joint, Femoral Surface with Synthetic Substitute, Cemented, Open Approach (ICD-10-PCS; 2023-11-25)
DX: M80.051A Age-related osteoporosis with current pathological fracture, right femur, initial encounter for fracture (principal); E87.1 Hypo-osmolality and hyponatremia; C16.9 Malignant neoplasm of stomach, unspecified; G20.A1 Parkinson's disease without dyskinesia, without mention of fluctuations; I10 Essential (primary) hypertension; R26.2 Difficulty in walking, not elsewhere classified; I45.10 Unspecified right bundle-branch block; D72.829 Elevated white blood cell count, unspecified; R30.0 Dysuria; K21.9 Gastro-esophageal reflux disease without esophagitis; D64.9 Anemia, unspecified; R33.9 Retention of urine, unspecified; K59.00 Constipation, unspecified; N32.81 Overactive bladder; E78.5 Hyperlipidemia, unspecified; W01.0XXA Fall on same level from slipping, tripping and stumbling without subsequent striking against object, initial encounter; Y93.01 Activity, walking, marching and hiking; Y92.009 Unspecified place in unspecified non-institutional (private) residence as the place of occurrence of the external cause; Z80.0 Family history of malignant neoplasm of digestive organs; Z88.0 Allergy status to penicillin; I95.9 Hypotension, unspecified
CPT/HCPCS: 70450; 72125; 72192; 73502; 73552; 80048; 80053; 81003; 85025; 85027; 86850; 86900; 86901; 93005; 96361; 96374; 97116; 97163; 97167; 97530; 97535; 99285; C1713; C1776

== ENCOUNTER → 2023-12-14 15:21 | Outpatient (REF) | payer MEDICARE, OTHER, SELFPAY ==
[2023-12-14 10:57] LABS: % Basophils 0.3 % (0-2); % Eosinophils 2.6 % (0-6); % Immature Granulocytes 0.4 % (0-0.5); % Lymphocytes 27.4 % (20.5-51.1); % Monocytes 12.2 % (1.7-9.3); % Neutrophils 57.1 % (42.2-75.2); Absolute Eosinophils 0.3 10^3/uL (0-0.7); Absolute Immature Granulocytes 0.1 10^3/uL (0-0.05); Absolute Lymphocytes 3.3 10^3/uL (1.2-3.4); Absolute Monocytes 1.5 10^3/uL (0.1-0.6); Absolute Neutrophils 6.9 10^3/uL (1.4-6.5); Hematocrit 30.6 % (39.0-52.0); Hemoglobin 9.7 g/dL (13.0-18.0); Mean Corp Hgb Conc. 31.7 g/dL (33.0-37.0); Mean Corpuscular Volume 88.2 fL (80.0-94.0); Mean Platelet Volume 8.5 fL (7.4-10.4); Platelet Count 363 10^3/uL (130-400); Red Blood Cell Count 3.47 10^6/uL (4.70-6.10); Red Cell Dist. Width 17.3 % (11.5-14.5)
[2023-12-14 11:40] LABS: Iron 67 ug/dl (49-181)
[2023-12-14 11:50] LABS: Percent Saturation 22 % (20-50); Total Iron Binding Capacity 296 ug/dl (261-462)
[2023-12-14 13:00] LABS: Ferritin 45.2 ng/ml (17.9-464.0)
== END ==
LOC: OIDL 15:21
PROVIDERS: ATTENDING PHYSICIAN Internal Medicine Hematology & Oncology
DX: C16.4 Malignant neoplasm of pylorus (principal)
CPT/HCPCS: 82728; 83540; 83550; 85025

== ENCOUNTER 2023-12-17 19:00 | Inpatient (IN) | payer MEDICARE, OTHER, SELFPAY ==
[2023-12-15] VITALS (15 sets, daily range): BP systolic 90–130; BP diastolic 48–70; PULSE 78; BMI 28.4; BMI 29.1
--- NOTE | 2023-12-15 09:04 | ED.GENMED ---
History of Present Illness
General
Chief Complaint: Fall
Source: patient, records, family and ambulance crew
Time Seen by Provider: 12/15/23 08:58
History of Present Illness
History of Present Illness:
This patient is an 88-year-old male who just was released from rehab yesterday after having a hip repair of his right hip approximately 3 weeks ago. He lives at home but has an aide. He reportedly slipped last night, and since then has not been
able to bear weight on the right side. He was assisted up last night. Medics were called today when son recognize that he was not able to walk. Pt denies complaints but for R hip pain. He denies n/t/neck pain/cp/sob/headache, etc. He recalls
falling and confirms no head inj, no loc.
Past History
Past History
ED Past Medical History: GERD, HTN and Other (Parkinson's disease, Stomach cancer)
ED Past Surgical History: Orthopedic
Patient has exhibited threatening behavior?: No
Social History
Tobacco: Non-smoker
Alcohol: None
Drug: None
Family History
Family History: Cancer (Mother had gastric cancer)
Phy Exam
Physical Exam
Physical Exam:
GENERAL: Alert , in no apparent distress
EYE: pupils equal and reactive,nophotophobia, EOMI
NECK: Supple, no significant adenopathy, no midline ttp.
ENT: o/p clr, mmm, no signs head/facial inj, no thorpe, no raccoon.
CARDIAC: Regular rate and rhythm .
LUNGS: Clear breath sounds bilaterally, no acute respiratory distress, no wheezes/rales/rhonchi
ABDOMEN: Soft, without focal tenderness, no r/g
NEUROLOGICAL: Alert and oriented to person, place, month but not year, no focal neuro deficits
SKIN: Warm and dry, skin intact.
MUSCULOSKELETAL: No edema, well perfused. 2+ Dp pulses bilat. Limited ROM R hip due to pain, noted to be sl ext rotated. No ttp of le distal to hip
PSYCH: Normal and appropriate interaction,making jokes
Course
Orders/Labs/Results
Orders:
Orders
12/15/23 09:00
Hip, Right 2-3 Views [CR Hip - RT w/wo Pel 2-3 Vw*] Urgent
Comment:
Reason For Exam: recent repair, fall yesterday
Include a pelvis x-ray?: Yes
12/15/23 09:16
Acetaminophen [Tylenol] 650 mg PO NOW STA
12/15/23 09:19
Acetaminophen [Tylenol] 1,000 mg PO NOW STA
12/15/23 10:19
Femur, Right 2 View [CR Femur - Right Min 2 Vw] Urgent
Comment:
Reason For Exam: fall
12/15/23 12:07
Case Management Consult ONCE
Case Management Consult: Discharge Planning
Knee Immobilizer Right-Treatme ONCE
12/15/23 13:52
PT Consult [Pt Eval And Treat] Urgent
Activity Level: Bedrest
12/15/23 15:30
BMP [Basic Metabolic Panel] Stat
CBC/With Diff [Complete Blood Count/With Diff] Stat
Vital Signs
Initial and Last Documented VS:
Initial Vital Signs
Temp Pulse Resp BP Pulse Ox
98.3 F 78 21 123/48 95
12/15/23 08:59 12/15/23 08:59 12/15/23 08:59 12/15/23 08:59 12/15/23 08:59
Last Documented Vital Signs
Temp Pulse Resp BP Pulse Ox
98.3 F 71 14 95/56 96
12/15/23 08:59 12/15/23 14:00 12/15/23 14:00 12/15/23 14:00 12/15/23 13:15
Update Note
Update Note:
Patient presents to the Emergency Department with
Number and Complexity of Problems Addressed at the Encounter
� Chronic conditions affecting care:
� Acute Exacerbation and/or Progression of Chronic Illness:
� Differential Diagnosis includes:
Amount and/or Complexity of Data to be Reviewed and Analyzed
� I performed an independent evaluation of and my interpretation is:
EKG:
CT:
Xrays:Status post right hip arthroplasty. No gross evidence for periprosthetic complication. femur Acute, mildly displaced fracture within the proximal metaphysis of the RIGHT femur adjacent to the tip of the patient's femoral
component of right hip prosthesis.
Laboratory Studies:
Other:
� Review of other/old records reveals: reviewed d/c summary from in care 3 wks ago
� Clinical information was obtained by an independent historian:son and daughter (Bianca)
� Prescriptions/Medications Considered but not given: considered morphine for pain, however family/pt decline. avoid nsaids given hx gastric ca.
� Further testing considered but not performed:
Risk of Complications and/or Morbidity or Mortality of Patient Management
� Social determinants of health affecting care:
� Discussion with other providers (PCP, Hospitalists, Consultants, etc):
� Escalation of care including admission/observation vs risk of discharge considered: S/p hip xray,pt re examined and noted to have ttp mid thigh, xray of femur ordered and c/w fracture. Case d/w Dr Bassett, xrays reviewed,
and she in turn d/w pt son (on my phone). Options to d surgery vs NWB for 6 wks, tx to rehab. Long long process with pt, casemanagement, etc. Pt family reluctant to do rehab or surgery, prefer to take him directly home. D/w them importance of
proper recoursec for nwb in place before doing that, they are working with cm to secure. Offered to obs overnight in hospital, however they reinforced their desire to take home.
Patient will need a nalini lift for 12 months for his femur fracture. He is bed bound. Patient will benefit if there is a commode opening.
Patient seen by PT and case management, multiple questions addressed and answered� It appears that proper resources will not be able to be secured and time for patient to be discharged today. Case discussed with hospitalist for observation overnight
ED Attending Note
-
Portions of this chart may have been created with voice recognition software.� Occasional wrong word or��sound alike� substitutions may have occurred due to the inherent limitations of voice recognition software.
Discharge Plan
Departure
Patient Disposition: Admit
Date of Disposition: 12/15/23
Time of Disposition: 15:36
Admit to: Med/Surg
Presentation/result/management discussed w/ accepting MD/DO: Hospitalist
Patient with high blood pressure during this ER visit?: Yes
Condition: Good
Discharge Problem:
Closed fracture of leg
Instructions: Lower leg fracture, BLOOD PRESSURE
Prescriptions:
No Action
carbidopa-levodopa 25-100 mg tablet extended release
2.5 tab PO BID@0700,1200
carbidopa-levodopa 25-100 mg tablet extended release
1 tab PO QPM@1800
esomeprazole magnesium 40 mg capsule,delayed release(DR/EC)
40 mg PO BID
rivastigmine tartrate 3 mg capsule
3 mg PO BID
cholecalciferol (vitamin D3) [Vitamin D3] 50 mcg (2,000 unit) Tablet
50 mcg PO NOON
sucralfate [Carafate] 1 gram Tablet
1 g PO BID
ezetimibe [Zetia] 10 mg Tablet
10 mg PO HS
aspirin 325 mg Tablet
325 mg PO DAILY Qty: 24 0RF
Rx Instructions:
asa 325mg PO daily x4 weeks for DVT prophylaxis
polyethylene glycol 3350 [HealthyLax] 17 gram Powder In Packet
17 g PO DAILY Qty: 30 0RF
sennosides-docusate sodium 8.6-50 mg Tablet
1 tab PO BID Qty: 14 0RF
acetaminophen 325 mg Tablet
650 mg PO Q4HPRN PRN (Reason: mild pain/ISIDRO/temp> 100.4F) Qty: 30 0RF
midodrine 10 mg tablet
10 mg PO TID Qty: 270 0RF
Rx Instructions:
Timing - 0700, 1200, 1600
tamsulosin 0.4 mg Capsule
0.4 mg PO HS Qty: 90 0RF
levothyroxine 50 mcg Tablet
50 mcg PO DAILY @ 0600 Qty: 90 0RF
multivitamin with folic acid [Tab-A-Demetrisu] 400 mcg Tablet
1 tab PO DAILY Qty: 90 0RF
dutasteride [Avodart] 0.5 mg capsule
0.5 mg PO DAILY Qty: 90 0RF
Referrals:
Saida Bassett DO [Active] - Follow up in 1 week
Jeff Salinas DO [Family Provider] -
Interventions
Interventions:
*Risk Screen - Suicide Last Done: 12/15/23 08:59
*General Assessment Last Done: 12/15/23 08:59
*Neglect/Abuse Screening Last Done: 12/15/23 08:59
ED- Fall Risk Assessment Last Done: 12/15/23 09:08
*ED COVID-19 Vaccine History Last Done: 12/15/23 08:59
ED-Musculoskeletal Assessment Last Done: 12/15/23 09:08
ED- Neurological Assessment Last Done: 12/15/23 09:08
ED-Skin Assessment Last Done: 12/15/23 09:08
Discharge Date and Time
Print Language: SETSWANA
[2023-12-15] MEDS: TYLENOL 1000 MG PO (09:27)
--- NOTE | 2023-12-15 15:40 | HPS.HSE ---
Addendum entered and electronically signed by David MelissaBert Mendenhall DO 12/15/23 16:29:
88-year-old male with GERD, hypertension, Parkinson disease, stage II stomach cancer (on immunotherapy with Keytruda), s/p THR of the right hip 3 weeks ago that presented to the ED today after a fall at home.� Had operation on his hip on 11/25/2023,
was discharged to [facility] at this facility from which she was discharged on 12/14/2023.� Discharged home where he had mechanical fall without head strike or loss of consciousness.� Hemodynamically stable, afebrile, on room air here.� No labs
obtained in the ED.� X-ray of the right hip without any evidence of periprosthetic complications.� X-ray of right femur did show an acute mildly displaced fracture within the proximal right but metaphysis adjacent tip of his right hip prosthesis.�
Was given Tylenol in the ED for pain.
Admission for nonoperative right femoral fracture.� Will begin on nonweightbearing protocol, provide as needed analgesia.� Case management, PT and OT consulted.� Patient's family prefers home disposition with Shakir lift accessibility.� Ordered BMP
and CBC which will be followed up.
I will be admitting Abdirashid Valverde to Med/Surg for noncomplicated acute right femoral fracture.� He will need monitoring for development of neurovascular complications related to his right hip fracture.� Will require physical therapy, case
management involvement to provide proper resources for home care and therapy.� I have independently evaluated and interviewed the patient.� I have spoken with the PA-C and the ED provider in order to facilitate care.� I agree with all of the PA-C
documentation unless otherwise indicated by me.
Original Note:
Family Physician
-
Family Physician: Jeff Salinas
Chief Complaint
-
Fall
History of Present Illness
Pt is an 88 yo M with PMH hypertension, GERD, stomach cancer on immunotherapy, and Parkinson's disease presents post-fall last night. Pt is s/p R hip hemiarthroplasty performed on 11/25/[address] Bassett. Pt family at bedside states he fell out of
bed trying to get to the bathroom. Pt has not been able to weight bear since the incident. Pt c/o R hip pain. He denies headache, dizziness, SOB, chest pain, palpitations, abdominal pain, neck pain, and back pain.
Medical History
Past Medical History
Past Medical History: Reports Other
Additional Past Medical History:
Parkinson's Disease
Stomach Cancer
GERD
BPH
Hypothyroidism
Chronic Hypotension
Hyperlipidemia
Past Surgical History: Reports Other
Additional Past Surgical History:
Right Hip Hemiarthroplasty
Hernia Repair
Social History
Tobacco: Non-smoker
Alcohol: None
Family History
Family History: Not pertinent
Allergies / Home Medications
Allergies reflects when Allergies were last updated in [facility].
Home Medications with original date entered in [facility]
Allergy/Medication List:
Allergies
Allergy/AdvReac Type Severity Reaction Status Date / Time
Penicillins Allergy Rash Verified 11/24/23 10:38
Home Medications
carbidopa ER 25 mg-levodopa 100 mg tablet,extended release 1 tab PO QPM@1800 Neurological Condition 08/02/23
carbidopa ER 25 mg-levodopa 100 mg tablet,extended release 2.5 tab PO BID@0800,1200 Neurological Condition 08/02/23
cholecalciferol (vitamin D3) 50 mcg (2,000 unit) tablet (Vitamin D3) 50 mcg PO NOON Supplement 08/02/23
rivastigmine tartrate 3 mg capsule 3 mg PO BID Neurological Condition 08/02/23
ezetimibe 10 mg tablet (Zetia) 10 mg PO HS High Cholesterol 11/24/23
sucralfate 1 gram tablet (Carafate) 1 g PO BID@0900,2000 Gastrointestinal Issue 11/24/23
acetaminophen 325 mg tablet 650 mg (2 x 325 mg) PO Q4HPRN PRN mild pain/ISIDRO/temp> 100.4F #30 tabs 11/28/23
polyethylene glycol 3350 17 gram oral powder packet (HealthyLax) 17 g PO DAILY #30 ea 11/28/23
dutasteride 0.5 mg capsule (Avodart) 0.5 mg PO DAILY #90 caps 12/13/23
multivitamin with folic acid 400 mcg tablet (Tab-A-Demetrius) 1 tab PO DAILY #90 tabs 12/13/23
tamsulosin 0.4 mg capsule 0.4 mg PO HS #90 caps 12/13/23
aspirin 325 mg tablet,delayed release 325 mg PO DAILY 12/15/23
levothyroxine 50 mcg tablet 50 mcg PO DAILY 12/15/23
midodrine 10 mg tablet 10 mg PO TID@0800,1200,1600 12/15/23
pantoprazole 40 mg tablet,delayed release 40 mg PO BID 12/15/23
sennosides 8.6 mg-docusate sodium 50 mg tablet 1 tab PO BIDPRN PRN constipation 12/15/23
Review of Systems
-
A 12 point ROS was completed and negative except as noted: Yes
Constitutional: Denies Fever or Chills
Respiratory: Denies Cough or Trouble Breathing
Cardiac: Denies Chest Pain or Palpitations
Physical Exam
Vital Signs
Vital Signs
Temp Pulse Resp BP Pulse Ox
98.3 F 71 14 95/56 96
12/15/23 08:59 12/15/23 14:00 12/15/23 14:00 12/15/23 14:00 12/15/23 13:15
Physical Exam
General: Comfortable and Conversant
HEENT: Anicteric and Moist mucous membranes
Respiratory: Clear and Non Labored Respirations
Cardiac: S1/S2 and Regular Rhythm
GI: Soft and Non Tender
Rectal: Deferred by Provider
Musculoskeletal: No Clubbing, No Cyanosis and Other (RLE with full length knee immobilizer in place)
Skin: Warm and Dry
Neuro: Awake, Alert, Oriented and Nonfocal/grossly intact
Psych: Calm
Laboratory Results
-
Laboratory Results
Total Bilirubin Cancelled 12/15/23 09:01
AST Cancelled 12/15/23 09:01
ALT Cancelled 12/15/23 09:01
Alkaline Phosphatase Cancelled 12/15/23 09:01
Femur X-Ray:
Acute, mildly displaced fracture within the proximal metaphysis of the RIGHT femur adjacent to the tip of the patient's femoral component of right hip prosthesis.
CBC and BMP are pending
Data Reviewed
-
Lab Data: Labs Reviewed by me
Impression/Plan
-
Periprosthetic Right Hip Fracture
-Consult Ortho
-Plan for Non-Operative Management with Non-Weight Bearing Status
Anemia
-Check iron studies
Parkinson's Disease
-Continue Sinemet and Exelon
GERD
-Continue Protonix and Carafate
BPH
-Continue Avodart and Flomax
Hypothyroidism
-Continue Levothyroxine
Chronic Hypotension
-Continue midodrine
Hyperlipidemia
-Continue Zetia
Stomach Cancer on Immunotherapy
-Last Treatment 11/23/2023
-Follows with Dr. Gallagher as outpatient
DVT proph: SCDs
Code Status: Full Code
[2023-12-15 16:08] LABS: % Basophils 0.3 % (0-2); % Eosinophils 1.1 % (0-6); % Immature Granulocytes 0.5 % (0-0.5); % Lymphocytes 31.3 % (20.5-51.1); % Monocytes 11.9 % (1.7-9.3); % Neutrophils 54.9 % (42.2-75.2); Absolute Eosinophils 0.1 10^3/uL (0-0.7); Absolute Immature Granulocytes 0.1 10^3/uL (0-0.05); Absolute Lymphocytes 3.6 10^3/uL (1.2-3.4); Absolute Monocytes 1.4 10^3/uL (0.1-0.6); Absolute Neutrophils 6.3 10^3/uL (1.4-6.5); Hemoglobin 8.6 g/dL (13.0-18.0); Mean Corp Hgb Conc. 33.1 g/dL (33.0-37.0); Mean Corpuscular Hgb 28.1 pg (27.0-31.0); Mean Platelet Volume 8.4 fL (7.4-10.4); Nucleated Red Blood Cells % 0 % (-); Platelet Count 328 10^3/uL (130-400); Red Blood Cell Count 3.06 10^6/uL (4.70-6.10); Red Cell Dist. Width 17.4 % (11.5-14.5); White Blood Cell Count 11.5 10^3/uL (4.8-10.8)
[2023-12-15 16:09] LABS: Blood Urea Nitrogen 20 mg/dl (9-20); Calcium 8.4 mg/dl (8.4-10.2); Carbon Dioxide 29 mmol/L (22-30); Chloride 102 mmol/L (98-107); Estimated Creatinine Clearance 51 ml/min; Glucose 115 mg/dl (70-99); Potassium 4.3 mmol/L (3.5-5.1); Sodium 136 mmol/L (135-145); eGFR > 60.00
--- NOTE | 2023-12-15 16:47 | CM ---
CM reviewed chart. CM consult for placement. Son, Earl in room. Earl repeatedly called his sister, Bianca, who also was apart of several conversations via speakerphone from his cellphone. Patient lying in bed with eyes closed.
CM introduced self and role. Earl asked what were their options for his father, as he would, per Earl, 'not be able to walk'. CM educated Earl several times that she would need to discuss the case with attending ED physician, but 1st wanted to
introduce self and ask what patient and patient's son's concerns were.
Earl informed CM that the orthopedic surgeon had been in the room and told him that his father would not be able to walk for at least 2 weeks. Bianca and Earl had several medical questions. When Bianca would ask CM a question, Eral would quickly say,
'She is just CM, we need to speak to the doctor about that. She just works on the discharge stuff'.
CM stated she would ask the doctor to come to the room and answer any medical questions they may have. Earl stated that he was going to follow CM to talk to the doctor himself. Earl followed CM out to Dr. Anderson's work space. Earl had his sister on
speakerphone as she asked Dr. Anderson several questions.
CM went over the options and costs of going to a skilled facility and the services that would be provided there. Earl asked what would be needed if patient were to go home. He and his sister went over the different medical supplies they had at home,
including an air mattress. CM educated patient's children on the necessity of turning and positioning patient. Earl repeatedly voiced concerns about his father not being able to walk. CM educated Earl on what a nalini lift is. Earl began to look on
marketplace for a nalini lift. He found several. CM educated him and sister that they would need at least 2 people to safely transfer patient with nalini lift.
CM also asked how son planned to transport patient to and from appointments. Daughter stated that she knew a transport company that could transport patient to his appointments for 100$ each trip.
Earl hung up with his sister and asked if he could have the transport company's number that his sister mentioned. CM printed off a list of several companies that served [place]. PT was also consulted for eval and safe transfer with nalini lift at
home. CM called [facility] who confirmed they could provide assistance with teaching about the nalini lift and safe transfers. Patient had an appointment tomorrow on Monday12/16/2023. CM also informed patient's children that [employer] (the DME company who initially delivered patient's hospital bed), would not be able to deliver the nalini lift until Monday.
PT stated patient is bedbound at this point. He has an immobilizer on. CM had physician fill out [employer] 'Order form' and it was faxed with PT's notes and the medically necessity note from Dr. Anderson.
Earl and Bianca repeatedly stated they wanted to speak with the orthopedic surgeon, but understood they were in surgery.
Patient is now observation status. Bianca stated that she plans for her fatherto stay here (in the hospital) until the nalini lift is delivered to their home on Monday.
[2023-12-15] MEDS: TYLENOL 650 MG PO (17:36)
[2023-12-15] MEDS: SINEMET CR 25-100 (EXTENDED RELEASE) 1 TABLET PO (18:39)
--- NOTE | 2023-12-15 19:28 | PTCARENOTE ---
Pt arrived to unit from ED via stretcher. Transferred over to floor bed by staff. Admission questions answered by patient. Pt denying pain at this time.
[2023-12-15] MEDS: FLOMAX 0.4 MG PO (20:45)
[2023-12-15] MEDS: EXELON 3 MG PO (20:45)
[2023-12-15] MEDS: ZETIA 10 MG PO (20:45)
[2023-12-15] MEDS: PROTONIX 40 MG PO (20:45)
[2023-12-15] MEDS: CARAFATE 1 GRAM PO (20:45)
[2023-12-16] VITALS (9 sets, daily range): BP systolic 112–130; BP diastolic 60–84
[2023-12-16] MEDS: SYNTHROID 50 MCG PO (05:28)
[2023-12-16] MEDS: ROXICODONE 5 MG PO ×2 (05:33→09:33)
--- NOTE | 2023-12-16 06:30 | PTCARENOTE ---
Received patient from dayshift RN, patient in bed with family at bedside. Family with multiple questions about nursing care, answered all questions and provided support. Provided education on the [facility] bed for pressure redistribution.
Patient was not on turning schedule d/t fracture, nursing made aware along with PCT. Turning/repositioning in worklist was held, see worklist. Family stated patient gets 'loopy' at night and requested to not give oxycodone at this time, bed alarmed
for safety. See worklist for nursing assessment. Patient oriented but forgetful, denies pain when at rest and denies need for medication when asked.
Multiple times throughout shift patient was restless in bed, taking off gown, linens, TEDS, pulling at immobilizer, and attempting to get out of bed. Patient found with cup of water spilled in bed and intermittently incontinent of urine in brief,
hygiene care provided as needed.
Upon hygiene care in AM, patient with increased pain and stated he wanted pain medication. Mentation remained consistent throughout shift; awake, alert, restless and able to makes his needs known. PRN oxycodone administered at this time as per
order, see MAR.
[2023-12-16 06:40] LABS: Hematocrit 26.9 % (39.0-52.0); Hemoglobin 8.8 g/dL (13.0-18.0); Mean Corp Hgb Conc. 32.7 g/dL (33.0-37.0); Mean Corpuscular Hgb 27.6 pg (27.0-31.0); Mean Corpuscular Volume 84.3 fL (80.0-94.0); Mean Platelet Volume 8.5 fL (7.4-10.4); Platelet Count 337 10^3/uL (130-400); Red Blood Cell Count 3.19 10^6/uL (4.70-6.10); Red Cell Dist. Width 17.6 % (11.5-14.5); White Blood Cell Count 11.2 10^3/uL (4.8-10.8)
[2023-12-16 07:04] LABS: Iron 28 ug/dl (49-181)
[2023-12-16 07:13] LABS: Percent Saturation 9 % (20-50); Total Iron Binding Capacity 292 ug/dl (261-462)
[2023-12-16 07:41] LABS: Ferritin 58.8 ng/ml (17.9-464.0)
[2023-12-16 08:12] LABS: Folate 12.8 ng/ml (2.76-20); Vitamin B12 503 pg/ml (239-931)
--- NOTE | 2023-12-16 09:00 | PTCARENOTE ---
Pt AAOx2-3 with need to be oriented to time. Pt drowsy but arousable to verbal stimuli. Pt taking oral meds with assistance with water and oatmeal, good appetite noted, no signs of aspiration. Pt assessed with need for bed change due to
incontinence/ spilled beverages. Pt carefully turned in bed from side to side to change bed pad and sheets. Pt verbalizing pain with turning. Immobilizer in place from hip to ankle only removed for skin checks. No skin breakdown noted. steristrips
and bruising at site of previous hip surgery. pt resting comfortably in bed with call elizondo in reach. will continue to monitor.
[2023-12-16] MEDS: MIRALAX 17 GRAMS PO (09:18)
[2023-12-16] MEDS: PROTONIX 40 MG PO ×2 (09:18→20:30)
[2023-12-16] MEDS: SINEMET CR 25-100 (EXTENDED RELEASE) 2.5 TABLET PO ×2 (09:18→11:30)
[2023-12-16] MEDS: ASPIRIN ENTERIC COATED 325 MG PO (09:18)
[2023-12-16] MEDS: EXELON 3 MG PO ×2 (09:19→20:30)
[2023-12-16] MEDS: PROSCAR 5 MG PO (09:19)
[2023-12-16] MEDS: CARAFATE 1 GRAM PO ×2 (09:19→20:29)
[2023-12-16] MEDS: ProAmatine PO ×3 (09:37→16:12)
--- NOTE | 2023-12-16 09:45 | PTCARENOTE ---
hospitalist made this nurse aware via TT the pt was asking for pain medication. This nurse asked the pt if he was in pain. The patient replied 'yes, of course'. When asked where the pt's pain was, he replied 'my hip'. This nurse asked the pt to rate
his pain on a scale from 1 to 10. the pt was unable to do so. This nurse then asked if the patient would rate his pain as 10 which is 'the worst pain', the pt replied 'no'. This nurse asked the pt if he would rate his pain as a 9, the pt replied
'yes'. Per protocol, this nurse administered pain medication for severe pain. The pt had no allergies to medication administered per pt's chart. the patients vitals are WNL. Pre-medication, the pt is drowsy but arousable and oriented times 2-3 with
the need to be reoriented to time. Pt is in bed with call elizondo within reach. Will continue to monitor.
[2023-12-16] MEDS: TYLENOL 650 MG PO ×3 (11:30→20:30)
--- NOTE | 2023-12-16 11:32 | W.PN.UPDATE ---
Update Note
Progress Note Update
88-year-old male with an acute right periprosthetic proximal femur fracture s/p right hip hemiarthroplasty 11/25/[address] Bassett. Patient seen any evaluated by Orthopedic surgery this AM.
- Strict NWB RLE
- Pxr-pt-bdlhl immobilizer at all times (may open up for skin checks only).
- Narcotic pain medications discontinued per request of family.
- Pain control with Tylenol 650mg every 4 hours.
- DVT prophylaxis per primary team.
- Please avoid rolling patient onto right side.
- Orthopedic surgery will continue to follow along at this time.
--- NOTE | 2023-12-16 11:33 | W.PN.HOSP.TC ---
Today's Communication/Plan
-
Nonweightbearing status of right leg
Follow-up orthopedic recommendations
Tylenol for pain
Possible discharge
Assessment / Plan
Assessment / Plan
#Periprosthetic Right Hip Fracture
-Was recently hospitalized, received prosthesis in total hip repair
-Had a subsequent fall, not able to weight-bear on right leg
-X-ray showed acute mildly displaced femoral fracture
-Plan for nonoperative approach, NWB for 6 weeks
-Orthopedics is following
#Chronic normocytic anemia
-Iron studies show mild iron deficiency, CBC stable here
-Will hold off on iron for now as it can interfere with Sinemet absorption
-May have had dropped hemoglobin from baseline in the context of his recent fracture
#Parkinson's Disease
#Autonomic orthostatic hypotension
-Home medications include Sinemet and Exelon
-Appears to be complicated by autonomic dysfunction/orthostasis
-Currently on midodrine for orthostatic blood pressures
#BPH
-Home medications include dutasteride and tamsulosin
-Suspect tamsulosin may contribute to his orthostasis though stable as of now
#Hypothyroidism
-Unclear etiology, stable on home levothyroxine dose
#Hyperlipidemia
-No known history of ASCVD, treated with ezetimibe
-No known allergy to statin, no indication to start now
#Stage II Stomach Cancer
-Home regimen includes Keytruda for immunotherapy, last Treatment 11/23/2023
-Home medications also include Protonix and sucralfate for bleeding prevention
-Will avoid NSAIDs and unnecessary blood thinners
-Follows with Dr. Gallagher as outpatient
DVT proph: SCDs
Diet: Regular
Code Status: Full Code
Anticipated Discharge: Within 24 hours
Subjective/Interval History
-
Date of Service: December 16, 2023
Seen and examined at the bedside. No acute events reported overnight.
When I entered the room he had spilled his breakfast tray all over himself in bed. Nursing was notified, I tried to clean up some of the items in his bed.
Complaining of some pain in his right leg.
Objective Data
-
Labs:
Laboratory Results
12/16/23
06:15
WBC 11.2 H
Hgb 8.8 L
Hct 26.9 L
Plt Count 337
Vital Signs:
Vital Signs
Temp Pulse Resp BP Pulse Ox
98.7 F 75 18 122/74 100
12/16/23 07:00 12/16/23 11:23 12/16/23 07:00 12/16/23 11:23 12/16/23 07:00
I&O
12/15/23 12/16/23 12/17/23
06:59 06:59 06:59
Intake Total 240 / 240
Balance 240 / 240
Review of Systems
-
History Source: Patient
All other systems: Reviewed and negative
Physical Exam
-
General: Appears in Distress and Pain; Negative Respiratory Distress
HEENT: Normocephalic, Atraumatic and Moist Mucous Membranes
Respiratory: Clear to Auscultation and Non Labored Respirations
Cardiac: Regular Rhythm and S1/S2
GI: Soft, Nontender and Nondistended
Musculoskeletal: No Clubbing, No Cyanosis, No Edema and Other (Tenderness to the right thigh/hip)
Skin: Warm and Dry; Negative Rash
Neuro: AO x 3, Nonfocal/Grossly Intact and Central Nerve's Intact
--- NOTE | 2023-12-16 11:52 | PTCARENOTE ---
pt's daughter voiced many concerns to this nurse about pt pain, confusion, urinary retention and possible worsening fx. This nurse made hospitalist aware via TT of family's concerns and ortho PA presented to room shortly after this nurse's
conversation with family. The pt is resting in bed comfortably and received pain medication per orders (see MAR). Pt's vitals WNL, voiding regularly and eating meals. Call elizondo within reach. Will continue to monitor.
--- NOTE | 2023-12-16 13:40 | W.PN.UPDATE ---
Update Note
Progress Note Update
Spoke with the patients family at the bedside this morning. He received oxycodone and became altered. They have additional concerns that he was turned on his right hip overnight as part of sacral ulcer prophylaxis. They are worried that he could
have displaced his right hip fracture and require surgery as a result of the turning. I ordered a repeat x-ray to assess the fracture for new displacement.
I went into the patient's chart and added opioid/morphine analogs into his allergy list with altered mentation as effect. He should under no circumstances receive opioid medications. Tylenol 650 mg standing dose is ordered currently for analgesia.
I added an order into the system to avoid turning the patient onto his right hip.
--- NOTE | 2023-12-16 13:46 | PTCARENOTE ---
Pt with increased drowsiness and incontinence after administration of pain medication. Pt arousable to verbal stimuli and continues to be oriented 2-3. This nurse made hospitalist aware of clinical status changes. vitals WNL. Family at bedside. Will
continue to monitor.
--- NOTE | 2023-12-16 15:30 | W.PN.UPDATE ---
Update Note
Progress Note Update
X-ray does show displacement relative to scan yesterday. I spoke with Dr. Bassett on the phone while she reviewed the image. Plan for OR in the morning. Patient is now n.p.o. after midnight.
I will order 2 units of PRBC per orthopedics request. Blood consent was obtained, type and screen ordered. Plan to begin IV iron infusions following his procedure for iron deficiency. Will trend CBC periprocedurally.
He was noted to have periprocedural urine retention following anesthesia for his last hip surgery. Consulted urology for periprocedural management with expected urine retention.
The patient's daughter Bianca was updated by both myself and the orthopedist.
--- NOTE | 2023-12-16 17:20 | PTCARENOTE ---
Pt more alert and less lethargic with good oral fluid intake. This nurse assessed pt revealing redness and warmth at R hip surgery site. MD made aware via TT. Family at bedside. Call elizondo within reach. Will continue to monitor.
[2023-12-16] MEDS: SINEMET CR 25-100 (EXTENDED RELEASE) 1 TABLET PO (18:30)
[2023-12-16] MEDS: ZETIA 10 MG PO (20:44)
[2023-12-16] MEDS: FLOMAX 0.4 MG PO (20:44)
[2023-12-17] VITALS (16 sets, daily range): BP systolic 96–140; BP diastolic 56–77
--- NOTE | 2023-12-17 | PTCARENOTE ---
Pt daughter expressed to this RN that pt is more disoriented and not making any sense per pt baseline. This RN noted patient to be disoriented/confused as well, however this RN was told in report that patient is confused @ baseline. Pt somewhat able
to follow commands but was very confused most of the night until about 03:30. Pt then became more awake and oriented to person/place not time. Pt received 2 units PRBC overnight, tolerated well, vitals remained stable pt slept through transfusion.
Takings tylenol Q4 crushed in apple sauce w/o issues, resting comfortably will continue to monitor.
[2023-12-17] MEDS: TYLENOL 650 MG PO ×2 (00:10→03:18)
[2023-12-17] MEDS: SYNTHROID PO (06:37)
[2023-12-17] MEDS: ASPIRIN ENTERIC COATED 325 MG PO (07:58)
[2023-12-17] MEDS: PROTONIX 40 MG PO ×2 (07:58→20:45)
[2023-12-17] MEDS: SINEMET CR 25-100 (EXTENDED RELEASE) 2.5 TABLET PO ×2 (07:59→16:33)
[2023-12-17] MEDS: EXELON 3 MG PO ×2 (08:01→20:45)
[2023-12-17] MEDS: CARAFATE PO (08:02)
[2023-12-17] MEDS: MIRALAX PO (08:02)
[2023-12-17] MEDS: PROSCAR PO (08:07)
[2023-12-17] MEDS: TYLENOL PO (08:08)
--- NOTE | 2023-12-17 08:08 | CONS.URO ---
Addendum entered and electronically signed by Fidel Llanes MD 12/17/23 09:10:
correction: current catheter is an external/condom catheter.
situation d/w female family member at bedside
continue Tamsulosin and 5-HUY
Anderson until ambulatory
Original Note:
Consultation
-
Performing Provider: Mario Alberto
Reason for Consultation: h/o post-op AUR
Medical History
History of Present Illness
88 yo man s/p THR of the right hip on 11/25/2023, that presented to the ED today after a fall at home.� He was discharged to [facility] at this facility from which she was discharged on 12/14/2023.� He had mechanical fall at home. Xrays in ED
revealed a femur fracture.
Past Medical History
Past Medical History: Other (GERD, hypertension, Parkinson disease, stage II stomach cancer (on immunotherapy with Keytruda),)
Past Surgical History: Other (Right Hip Hemiarthroplasty Hernia Repair)
Allergies/Home Medications
Allergies
Allergy/AdvReac Type Severity Reaction Status Date / Time
Penicillins Allergy Rash Verified 12/16/23 13:25
Opioids - Morphine Analogues AdvReac Intermediate Unknown Verified 12/16/23 13:25
Home Medications
�Medication �Instructions �Recorded �Confirmed �Type
carbidopa ER 25 mg-levodopa 100 mg 1 tab PO QPM@1800 Neurological 08/02/23 12/15/23 History
tablet,extended release Condition
carbidopa ER 25 mg-levodopa 100 mg 2.5 tab PO BID@0800,1200 08/02/23 12/15/23 History
tablet,extended release Neurological Condition
cholecalciferol (vitamin D3) 50 50 mcg PO NOON Supplement 08/02/23 12/15/23 History
mcg (2,000 unit) tablet (Vitamin
D3)
rivastigmine tartrate 3 mg capsule 3 mg PO BID Neurological Condition 08/02/23 12/15/23 History
ezetimibe 10 mg tablet (Zetia) 10 mg PO HS High Cholesterol 11/24/23 12/15/23 History
sucralfate 1 gram tablet (Carafate) 1 g PO BID@0900,2000 11/24/23 12/15/23 History
Gastrointestinal Issue
acetaminophen 325 mg tablet 650 mg (2 x 325 mg) PO Q4HPRN PRN 11/28/23 12/15/23 Rx
mild pain/ISIDRO/temp> 100.4F #30 tabs
polyethylene glycol 3350 17 gram 17 g PO DAILY #30 ea 11/28/23 12/15/23 Rx
oral powder packet (HealthyLax)
dutasteride 0.5 mg capsule 0.5 mg PO DAILY #90 caps 12/13/23 12/15/23 Rx
(Avodart)
tamsulosin 0.4 mg capsule 0.4 mg PO HS #90 caps 12/13/23 12/15/23 Rx
aspirin 325 mg tablet,delayed 325 mg PO DAILY Blood Clot 12/15/23 12/15/23 History
release Prevention/Tx
levothyroxine 50 mcg tablet 50 mcg PO DAILY Thyroid 12/15/23 12/15/23 History
midodrine 10 mg tablet 10 mg PO TID@0800,1200,1600 Blood 12/15/23 12/15/23 History
Pressure
pantoprazole 40 mg tablet,delayed 40 mg PO BID Gastrointestinal Issue 12/15/23 12/15/23 History
release
sennosides 8.6 mg-docusate sodium 1 tab PO BIDPRN PRN constipation 12/15/23 12/15/23 History
50 mg tablet
multivitamin with folic acid 400 1 tab PO DAILY Supplement 12/16/23 12/15/23 History
mcg tablet (Tab-A-Demetrius)
Physical Exam
Vital Signs
Vital Signs
Temp Pulse Resp BP Pulse Ox
97.8 F 76 18 112/65 95
12/17/23 07:00 12/17/23 07:00 12/17/23 07:00 12/17/23 07:00 12/17/23 07:00
Lab / Testing Results
Laboratory Results
12/15/23 15:41
Physical Exam
elderly male
in be
Anderson in place
Assessment / Plan
-
baseline BPH -- already on Tamsulosin
prior h/o extended post-op urinary retention
he is likely to suffer the same this time as he is further deconditioned
Rec: keep Anderson until pt is ambulatory
[2023-12-17 08:16] LABS: INR 1.23; PT 15.3 Sec (11.4-14.6)
[2023-12-17] MEDS: ProAmatine PO ×2 (08:28→16:20)
[2023-12-17 09:01] LABS: Hematocrit 27.4 % (39.0-52.0); Hemoglobin 9.4 g/dL (13.0-18.0); Mean Corp Hgb Conc. 34.3 g/dL (33.0-37.0); Mean Corpuscular Hgb 28.1 pg (27.0-31.0); Mean Corpuscular Volume 81.8 fL (80.0-94.0); Mean Platelet Volume 8.5 fL (7.4-10.4); Platelet Count 278 10^3/uL (130-400); Red Blood Cell Count 3.35 10^6/uL (4.70-6.10); Red Cell Dist. Width 16.7 % (11.5-14.5); White Blood Cell Count 11.6 10^3/uL (4.8-10.8)
--- NOTE | 2023-12-17 09:09 | W.PN.UPDATE ---
Update Note
Progress Note Update
Patient seen and evaluated this AM by Orthopedic Surgery.
- OR today for ORIF Right Periprosthetic Femur Fracture with Dr. Bassett.
- ABX and Irrigation OCTOR.
- Primary team type and cross for 2 units PRBC yesterday. Hgb this AM 9.4.
- NPO
- Consent obtained from POA and placed in patient's chart
- Orthopedic surgery will continue to follow along
[2023-12-17 09:35] LABS: % Basophils 0.3 % (0-2); % Eosinophils 1.4 % (0-6); % Immature Granulocytes 0.4 % (0-0.5); % Lymphocytes 32.6 % (20.5-51.1); % Monocytes 13.9 % (1.7-9.3); % Neutrophils 51.4 % (42.2-75.2); Absolute Eosinophils 0.2 10^3/uL (0-0.7); Absolute Immature Granulocytes 0.1 10^3/uL (0-0.05); Absolute Lymphocytes 3.8 10^3/uL (1.2-3.4); Absolute Monocytes 1.6 10^3/uL (0.1-0.6); Nucleated Red Blood Cells % 0 % (-)
[2023-12-17] MEDS: OFIRMEV 65 MG IV ×3 (09:35→23:00)
--- NOTE | 2023-12-17 10:44 | W.PN.UPDATE ---
Update Note
Progress Note Update
Prior to seeing the patient this morning I was fired from the case by his daughter. She has been very emotional over the hospital stay, unhappy with multiple occurrences within the hospital. Has been found on nurses computer looking in her
father's chart.
There is no hospitalist available to take over care of this patient today. I spoke with nursing supervisor pressing department and I will continue to follow this case peripherally. I will be available if there are any acute changes to the patient's health either
before or after he goes to the operating room today for his hip repair. Tomorrow a new hospitalist will take over care for the patient.
Nursing supervisor pressing department to speak with the patient's daughter today
[2023-12-17] MEDS: OFIRMEV IV (14:16)
[2023-12-17] MEDS: NSS 1000 IV (14:59)
--- NOTE | 2023-12-17 16:00 | PTCARENOTE ---
Pt received from the PACU via bed. Transport was w/o incident. Pt is awake, oriented to person and place. Pt is Salvadorean speaking: Daughter and Son are at bedside. VSS, Pt is afebrile. Pt's Right leg with post op dressing covered w/ Yvan wraps and
intact. No drainage noted at this time. Pt c/o of moderate pain. Will medicate for pain as ordered. Pt denies nausea at this time. Pt and Pt's family instructed on plan of care, and best way to make cares and concerns known. Call [facility] is within
reach.
[2023-12-17] MEDS: NON-FORMULARY ITEM 1 UNIT PO (16:18)
[2023-12-17] MEDS: ProAmatine 10 MG PO (16:21)
[2023-12-17] MEDS: ULTRAM 25 MG PO (17:25)
--- NOTE | 2023-12-17 17:39 | W.PN.UPDATE ---
Update Note
Progress Note Update
88-year-old male s/p ORIF right periprosthetic femur fracture
- NWB RLE
- Post-operative pain control discussed with patient's daughter (POA). Patient's daughter would like to proceed with IV Tylenol (as ordered), Tramadol 25mg q6PRN (moderate pain) and Tramadol 50mg q6PRN (severe pain). Post-operative orders placed.
- Orthopedic surgery will continue to follow along.
[2023-12-17] MEDS: SINEMET CR 25-100 (EXTENDED RELEASE) 1 TABLET PO (18:51)
[2023-12-17] MEDS: ANCEF 5 IV (20:44)
[2023-12-17] MEDS: FLOMAX 0.4 MG PO (20:46)
[2023-12-17] MEDS: ZETIA 10 MG PO (20:46)
[2023-12-17] MEDS: COLACE 100 MG PO (20:46)
[2023-12-17] MEDS: CARAFATE 1 GRAM PO (20:46)
[2023-12-18] VITALS (7 sets, daily range): BP systolic 91–125; BP diastolic 49–88; PULSE 68; O2SAT 95
[2023-12-18] MEDS: OFIRMEV 65 MG IV ×4 (01:35→20:25)
[2023-12-18] MEDS: NSS 1000 IV ×2 (03:22→16:21)
[2023-12-18] MEDS: ANCEF 5 IV (03:23)
[2023-12-18] MEDS: SYNTHROID 50 MCG PO (05:32)
--- NOTE | 2023-12-18 07:44 | W.PN.ORTHO ---
Today's Communication / Plan
-
88 yo M POD1 ORIF right periprosthetic femur fracture under the direction of Dr. Bassett
--NWB to RLE. We appreciate the assistance of PT/OT.
--ASA 325 mg daily x4 weeks for DVT ppx.
--Maintain surgical dressing until 7-10 days post-op. Reinforce/change as needed.
--Continue current pain management regimen.
--Hgb pending this AM. Continue to monitor.
--Case management consult for dc planning.
--Orthopedics will continue to follow along.
Assessment
.
Distal Motor Intact: Yes
Dressing:
Clean, dry and intact.
Plan
.
Surgery / Date: ORIF R periprosthetic femur fracture
DVT Prophylaxis: Aspirin
Activity:
Out of bed.
PT/OT
Subjective
.
.:
Mr. Valverde is an 88 year old male POD1 following his ORIF right periprosthetic femur fracture performed by Dr. Bassett. He is resting comfortably in bed this morning. He was quite sleepy this morning. Per his nurse, he did not sleep overnight, so
I did not wake him this morning. His pain has been well controlled with Tylenol.
Vital Signs and Labs
.
Vital Signs and Labs:
Temp Pulse Resp BP Pulse Ox
97.4 F 71 14 122/88 96
12/18/23 03:10 12/18/23 03:10 12/18/23 03:10 12/18/23 03:10 12/18/23 03:10
PT 15.3 Sec (11.4-14.6) H 12/17/23 07:48
INR 1.23 12/17/23 07:48
Physical Exam
-
Directed exam of the right lower extremity reveals dressing CDI. Thigh soft and compressible. Calf soft and nontender. Palpable pt and dp pulses.
[2023-12-18] MEDS: NON-FORMULARY ITEM 1 UNIT PO (08:30)
[2023-12-18] MEDS: MIRALAX 17 GRAMS PO (08:31)
[2023-12-18] MEDS: PROTONIX 40 MG PO ×2 (08:31→20:25)
[2023-12-18] MEDS: SINEMET CR 25-100 (EXTENDED RELEASE) 2.5 TABLET PO ×2 (08:31→11:35)
[2023-12-18] MEDS: EXELON 3 MG PO (08:31)
[2023-12-18] MEDS: ProAmatine 10 MG PO ×3 (08:31→17:12)
[2023-12-18] MEDS: ASPIRIN ENTERIC COATED 325 MG PO (08:31)
[2023-12-18 08:32] LABS: Hematocrit 28.8 % (39.0-52.0); Hemoglobin 9.7 g/dL (13.0-18.0)
[2023-12-18] MEDS: COLACE 100 MG PO (08:32)
[2023-12-18 08:57] LABS: Blood Urea Nitrogen 16 mg/dl (9-20); Calcium 7.8 mg/dl (8.4-10.2); Carbon Dioxide 25 mmol/L (22-30); Chloride 102 mmol/L (98-107); Estimated Creatinine Clearance 64 ml/min; Glucose 94 mg/dl (70-99); Potassium 4.3 mmol/L (3.5-5.1); Sodium 134 mmol/L (135-145); eGFR > 60.00
--- NOTE | 2023-12-18 11:31 | CM ---
Addendum entered by Therese Cloud RN 12/18/23 15:27:
Referral sent to [facility] via [facility].
Original Note:
Reviewed the chart notes and spoke with the patient's daughter at the bedside. Patient's main language is Stateless. The patient was recently discharged from to [facility] on (11/23-11/27) after right hip fx repair and was discharged from [facility] (12/13) to
home. The patient resides with his spouse in a first floor condo with 24h/7 caregivers (private pay). The patient has a rolling walker, wheel chair, and hospital bed. Shakir lift was ordered through the ER from [facility]. Per
daughter, they have reached out to her to inform of manual shakir available. Patient's daughter requesting patient return to [facility] rehab prior to transitioning back to home. The patient's daughter confirmed his pharmacy of choice is the [facility]
[address] [place] [address]. Will need PT/OT evaluation prior to sending referral. CM continues to be available to patient/family and is monitoring medical plan for needs at discharge.
Plan: Discharge plans will depend on the patient's progress. Family requesting patient return to [facility]. Referral to be sent once evaluation completed by PT/OT.
[2023-12-18] MEDS: CARAFATE 1 GRAM PO ×2 (11:35→20:24)
--- NOTE | 2023-12-18 14:28 | W.PN.HOSP.TC ---
Today's Communication/Plan
-
Adjust analgesic regimen. Currently on Ultram and Tylenol IV.
Physical therapy and physiatry assessment
Continue bowel regimen
Bladder scan for retention while on Flomax and Avodart
Assessment / Plan
Assessment / Plan
#Periprosthetic Right Hip Fracture
-Was recently hospitalized, received prosthesis in total hip repair
-Had a subsequent fall, not able to weight-bear on right leg
-Status post ORIF of the right periprosthetic femoral fracture on 12/16
Continue nonweightbearing to right lower extremity
DVT prophylaxis aspirin 325 mg x 4 weeks.
Maintain surgical dressing for 7 to 10 days postop.
Adjust analgesic regimen monitoring for oversedation.
Follow hemoglobin
# Acute on chronic chronic normocytic anemia.
Status post transfusion during use of packed red blood cells preoperatively
-Iron studies show mild iron deficiency,
-Will hold off on iron for now as it can interfere with Sinemet absorption
Continue following hemoglobin
#Parkinson's Disease
#Autonomic orthostatic hypotension
-Home medications include Sinemet and Exelon. Unclear clinical benefit from Exelon. Given high propensity for urinary retention, will hold for now.
-Appears to be complicated by autonomic dysfunction/orthostasis
-Currently on midodrine for orthostatic blood pressures
#BPH
-Home medications include dutasteride and tamsulosin
-Suspect tamsulosin may contribute to his orthostasis though stable as of now
#Hypothyroidism
-Unclear etiology, stable on home levothyroxine dose
#Hyperlipidemia
-No known history of ASCVD, treated with ezetimibe
-No known allergy to statin, no indication to start now
#Stage II Stomach Cancer
-Home regimen includes Keytruda for immunotherapy, last Treatment 11/23/2023
-Home medications also include Protonix and sucralfate for bleeding prevention
-Will avoid NSAIDs and unnecessary blood thinners
-Follows with Dr. Gallagher as outpatient
DVT proph: SCDs
Diet: Regular
Code Status: Full Code
Anticipated Discharge: 24 - 48 hours
Subjective/Interval History
-
Date of Service: December 18, 2023
Objective Data
-
Labs:
Laboratory Results
12/18/23 12/18/23
08:02 08:03
Hgb 9.7 L
Hct 28.8 L
Sodium 134 L
Potassium 4.3
Chloride 102
Carbon Dioxide 25
BUN 16
Creatinine 0.8
Glucose 94
Calcium 7.8 L
Vital Signs:
Vital Signs
Temp Pulse Resp BP Pulse Ox
98.9 F 91 16 99/49 96
12/18/23 11:14 12/18/23 11:36 12/18/23 11:14 12/18/23 11:36 12/18/23 11:14
I&O
12/17/23 12/18/23 12/19/23
06:59 06:59 06:59
Intake Total 1040 / 1040 1770 / 1770
Output Total 240 / 240 935 / 935 850 / 850
Balance 800 / 800 835 / 835 -850 / -850
Physical Exam
-
General: Well Developed and No Apparent Distress
HEENT: Normocephalic, Atraumatic and Moist Mucous Membranes
Respiratory: Clear to Auscultation
Cardiac: Regular Rhythm and S1/S2; Negative Murmur, Rub or Gallop
GI: Soft, Nontender, Nondistended and Normal Bowel Sounds; Negative Organomegaly
Rectal: Deferred by Provider
Musculoskeletal: No Clubbing, No Cyanosis and No Edema
Skin: Negative Rash
Neuro: Awake, Alert and Nonfocal/Grossly Intact
[2023-12-18] MEDS: SINEMET CR 25-100 (EXTENDED RELEASE) 1 TABLET PO (17:13)
--- NOTE | 2023-12-18 19:00 | CON.MD ---
Consultation - Medical
-
Referring Provider:�Dr. Rogerio Young
Chief Complaint:�Right femoral periprosthetic fracture repair
�
History of Present Illness:�88-year-old male with PMH (as below) presented to [facility] on 12/15/2023 with another fall and right femoral fracture status post 12/17/2023 right ORIF. Patient is nonweightbearing in the right lower extremity.
Aspirin for DVT prophylaxis for 4 weeks. Surgical dressing to remain for 7 to 10 days postoperatively.
During his recent hospital stay he had urinary retention which improved with holding his Myrbetriq and continuing on tamsulosin and Avodart.
Patient notes that he is feeling okay overall except for pain. Nursing notes that he was up at night and seems to have some day night reversal.
�
Past Medical History:�Hypertension, GERD, stomach cancer on immunotherapy- last treatment 11/23/23, Parkinson's disease, right femoral fracture
Procedure History:�Right femoral hemiarthroplasty 11/25/2023
Family History:�Noncontributory
�
Social History:�
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
Functional Level Currently:�
�
Tobacco:�Denies�
Alcohol:�Denies�
Drug use:�Denies�
�
Lives with:�Spouse
24-hour assistance available:�yes
Number of floors:�1
# steps to enter:�7
Driving:�No
Occupation:�Retired
�
�
Allergies:�
Allergy/AdvReac Type Severity Reaction Status Date / Time
Penicillins Allergy Rash Verified 12/16/23 13:25
Opioids - Morphine Analogues AdvReac Intermediate Unknown Verified 12/16/23 13:25
�
Review of Systems:�
Constitutional: (x) Normal _
Eye: (x) Normal _
Ear/Nose/Throat: (x) Normal _
Respiratory: (x) Normal _
Cardiovascular: (x) Normal _
Gastrointestinal: (x) Normal _
Genitourinary: (x) Normal _
Musculoskeletal: (x) Normal _
Integumentary: (x) Normal _
Neurologic: (x) Normal _
Psychiatric: (x) Normal _
Endocrine: (x) Normal _
Hematologic/Lymphatic: (x) Normal _
Allergic/Immunologic: (x) Normal _
�
Medications:�
Active Current Visit Medication List
Category Date Time Status
0.9% Sodium Chloride 1000 ml [Nss] 1,000 ml Med 12/17/23 14:30 Active
IV 80 mls/hr
Acetaminophen 10 mg/ml [Ofirmev] 650 mg Med 12/18/23 16:00 Active
Empty Viaflex Container 100 ml [Viaflex Empty Container
] 0 ml
IV Q4
Aspirin Enteric Coated Med 12/16/23 08:00 Active
325 mg PO DAILY
Carbidopa/Levodopa Cr [Sinemet Cr 25-100 (Extended Med 12/15/23 18:15 Active
Release)]
1 tablet PO QPM
Carbidopa/Levodopa Cr [Sinemet Cr 25-100 (Extended Med 12/16/23 08:00 Active
Release)]
2.5 tablet PO BID@0800,1200
Docusate Sodium [Colace] Med 12/17/23 20:00 Active
100 mg PO BID
Ezetimibe [Zetia] Med 12/15/23 22:00 Active
10 mg PO HS
Flush (0.9% Sodium Chloride) [Flush (Nss)] Med 12/15/23 19:00 Active
See Dose Instructions IV PER PROTOCOL
Levothyroxine [Synthroid] Med 12/16/23 06:00 Active
50 mcg PO DAILY @ 0600
Mag Hydrox/Al Hydrox/Simeth [Maalox] Med 12/17/23 14:27 Active
30 ml PO Q4HPRN PRN
Midodrine [ProAmatine] Med 12/16/23 08:00 Active
10 mg PO TID@0800,1200,1600
Non-Formulary Item Med 12/17/23 14:00 Active
See Protocol PO DAILY
Ondansetron Injectable [Zofran] Med 12/17/23 14:27 Active
4 mg IV Q6HPRN PRN
Pantoprazole [Protonix] Med 12/15/23 20:00 Active
40 mg PO BID
Polyethylene Glycol Powder [Miralax] Med 12/16/23 08:00 Active
17 grams PO DAILY
Rivastigmine Tartrate [Exelon] Med 12/15/23 20:00 Hold
3 mg PO BID
Sucralfate [Carafate] Med 12/15/23 20:00 Active
1 gram PO BID@0900,2000
Tamsulosin [Flomax] Med 12/15/23 22:00 Active
0.4 mg PO HS
Tramadol HCl [Ultram] Med 12/17/23 16:41 Active
25 mg PO Q6HPRN PRN
Tramadol HCl [Ultram] Med 12/17/23 16:40 Active
50 mg PO Q6HPRN PRN
�
Vitals:�
Temp Pulse Resp BP Pulse Ox
98.8 F 71 19 98/59 94
12/18/23 15:15 12/18/23 15:15 12/18/23 15:15 12/18/23 15:15 12/18/23 15:15
Height 5 ft 9 in
Actual Weight 89.3 kg
Body Mass Index (BMI) 29.1
�
Physical Exam:�
General Appearance/Observation: Well-developed, well-nourished male in no apparent distress.�
Pain/Comfort Assessment: Moderate to severe right hip pain with activity
Mood/Affect: Mildly flat�
Integumentary/Operative Site:�Right hip incision with dressing clean dry and intact
Eyes: Conjunctiva/Lids: normal���� Pupils: pupils equal round and reactive to light
Ears/Nose/Throat: oral mucosa slightly dry,� throat clear.������������ Lips/Teeth/Gums: normal�
Cardiovascular: Heart: regular, no murmur�
Pulses: dorsalis pedis 2+ bilaterally�
Respiratory: Respiratory Effort/Chest Expansion: normal������� Auscultation: Clear to auscultation bilaterally�
Gastrointestinal: abdomen not tender, no distension, normal abdominal bowel sounds
Genitourinary: No Anderson�
Extremities:�Edema: Mild right lower extremity edema�cyanosis: None�Trophic�changes: None
Neurology Exam:
Orientation: Alert, Oriented to self, Time, Place�
Memory: Intact for immediate medical concerns
Repetition: Intact
Comprehension: Intact
Two step command: Intact
Cranial Nerves:
�� CNII:�Pupillary light reflex: Intact����
�� CN VII:�Facial movement: Symmetric
�� CN VIII:�Hearing: Normal
�� CN IX/X:�Speech & swallow: Normal,�Position of Uvula: Midline
�� CN XI:�Shoulder shrug: Symmetric
�� CN XII:�Tongue protrusion: Midline
Sensory:
�� Light touch: Intact in bilateral upper and lower extremities
�
Musculoskeletal:Motor: (Manual muscle scale 0-5)�
Muscle SA EF WE EE FF FA HF KE DF EHL PF
Right� 5 5 5 5 5 5 2 2 5 5 5
Left 5 5 5 5 5 5 5 5 5 5 5
�
Tone: Increased, has resting tremors
Range of Motion: Right hip not tested with pain.
�
Lab Results
Laboratory Data
12/18/23 08:03
12/18/23 08:02
PT 15.3 Sec (11.4-14.6) H 12/17/23 07:48
INR 1.23 12/17/23 07:48
APTT 38.0 Sec (23.4-35.0) H 12/17/23 07:48
Total Bilirubin Cancelled 12/15/23 09:01
AST Cancelled 12/15/23 09:01
ALT Cancelled 12/15/23 09:01
Alkaline Phosphatase Cancelled 12/15/23 09:01
Total Protein Cancelled 12/15/23 09:01
Albumin Cancelled 12/15/23 09:01
�
Diagnostic Results:�as per HPI�
�
Assessment
88-year-old M [facility] (hypertension, GERD, stomach cancer on immunotherapy, Parkinson's disease with right acute traumatic subcapital right hip fracture s/p right hip hemiarthroplasty on 11/25/23
�
Plan�
PM&R�PT/OT to increase independence with ADLs, improve balance, coordination, endurance, strength, mobility, community reintegration, decreased burden of care on others and family education.�
�
Hip fracture/s/p right hip hemiarthroplasty 11/25/23 and now right 12/17/23 ORIF for right femoral periprosthetic fracture: Pain control, monitor incision. Nonweightbearing right lower extremity per orthopedics.
Parkinson's disease: Sinemet 25/100 - 2.5 tbs bid and 1 tab qd, rivastigmine 3mg bid.
Hypotension/Orthostatic: Teds. Has had this with Flomax in the past, must be made at night to prevent further worsening of orthostasis likely related to Parkinson's. Midodrine 10 mg 3 times daily
Leukocytosis: possibly reactive to fracture and surgery.
HLD: Zetia 10mg HS
Anemia: 10.1 from 9.7 from 10. Monitor.
FEN:
-Hyponatremia: 134 stable, monitor
Psych: Psychology consult.� Monitor mood, medications as needed. Seems to have day night reversal. May need a medication to help out with evening restlessness and lack of sleep. Trazodone or Seroquel would be options
Pain: acetaminophen scheduled in am and PRN. monitor
Bowel/constipation: Colace, Senna, bisacodyl prn.
Overactive Bladder: No retention concerns. Myrbetriq- on hold.
Urinary retention: Flomax 0.4 mg at HS and Avodart 0.5 mg daily. Check postvoid residual.
GI Prophylaxis/: Pantoprazole 40mg bid, Carafate 1 gm bid and other bowel regimen. Dulcolax suppository prn.
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
-Follows with Dr. Gallagher outpatient. (12/04) Dr Gallagher's office requesting cbc w/diff, CMP, TSH, T3, Free T4. Added to Monday's BW.
DVT Prophylaxis: Mechanical and ASA 325mg qd x 4 weeks for DVT per ortho
Pulmonary: Incentive spirometry
Safety: Continue to reinforce assistance with all transfers. Reviewed stoplight system.
Discharge destination: Home with family support
�Discharge Destination:�[facility] facility until weightbearing, could consider transfer to acute rehab at that time.
A total of 60 minutes were spent with the patient preparing for the evaluation, obtaining history, performing examination and evaluation, counseling, data review, case management, care coordination, order runner, and EMR documentation.
Summary of recommendations:
-�Discharge Destination:�[facility] facility until weightbearing, could consider transfer to acute rehab at that time.�
�Psych: Seems to have day night reversal. May need a medication to help out with evening restlessness and lack of sleep. Trazodone or Seroquel would be options for early evening medication.
Hypotension/Orthostatic: Teds. Has had this with Flomax in the past, must be made at night to prevent further worsening of orthostasis likely related to Parkinson's. Midodrine 10 mg 3 times daily
Thank you for allowing me to care for your patient. Please contact me with any questions or concerns.
[2023-12-18] MEDS: COLACE PO (20:25)
[2023-12-18] MEDS: FLOMAX 0.4 MG PO (22:07)
[2023-12-18] MEDS: ZETIA 10 MG PO (22:07)
[2023-12-19] MEDS: OFIRMEV 65 MG IV ×3 (00:13→09:13)
[2023-12-19] MEDS: DESENEX/MITRAZOL/ZEASORB 1 APPLIC TOPICAL ×3 (02:00→20:10)
[2023-12-19] MEDS: NSS 1000 IV (04:13)
[2023-12-19] MEDS: SYNTHROID 50 MCG PO (05:13)
[2023-12-19 06:23] LABS: % Basophils 0.5 % (0-2); % Eosinophils 4.3 % (0-6); % Immature Granulocytes 0.4 % (0-0.5); % Lymphocytes 33.6 % (20.5-51.1); % Monocytes 16.8 % (1.7-9.3); % Neutrophils 44.4 % (42.2-75.2); Absolute Basophils 0.1 10^3/uL (0-0.2); Absolute Eosinophils 0.4 10^3/uL (0-0.7); Absolute Lymphocytes 3.1 10^3/uL (1.2-3.4); Absolute Monocytes 1.5 10^3/uL (0.1-0.6); Hematocrit 27.4 % (39.0-52.0); Hemoglobin 9.2 g/dL (13.0-18.0); Mean Corp Hgb Conc. 33.6 g/dL (33.0-37.0); Mean Corpuscular Hgb 28.8 pg (27.0-31.0); Mean Corpuscular Volume 85.6 fL (80.0-94.0); Mean Platelet Volume 9.1 fL (7.4-10.4); Nucleated Red Blood Cells % 0 % (-); Platelet Count 229 10^3/uL (130-400); Red Cell Dist. Width 16.6 % (11.5-14.5); White Blood Cell Count 9.1 10^3/uL (4.8-10.8)
[2023-12-19 06:43] LABS: Blood Urea Nitrogen 13 mg/dl (9-20); Calcium 7.8 mg/dl (8.4-10.2); Carbon Dioxide 25 mmol/L (22-30); Chloride 104 mmol/L (98-107); Estimated Creatinine Clearance 64 ml/min; Glucose 87 mg/dl (70-99); Potassium 4.1 mmol/L (3.5-5.1); Sodium 137 mmol/L (135-145); eGFR > 60.00
--- NOTE | 2023-12-19 07:28 | W.PN.ORTHO ---
Today's Communication / Plan
-
88 yo M POD2 ORIF right periprosthetic femur fracture under the direction of Dr. Bassett
--NWB to RLE. We appreciate the assistance of PT/OT.
--ASA 325 mg daily x4 weeks for DVT ppx.
--Maintain surgical dressing until 7-10 days post-op. Reinforce/change as needed.
--Continue current pain management regimen.
--Hgb this AM is 9.2. Continue to monitor.
--Case management consult for dc planning.
--Follow up outpatient 2 weeks postop for staple removal and repeat xrays
--Patient is orthopedically stable postoperatively. Orthopedics will sign off at this time. Please reach out with any questions or concerns
Assessment
.
Distal Motor Intact: Yes
Dressing:
Clean, dry and intact.
Plan
.
Surgery / Date: ORIF R periprosthetic femur fracture
DVT Prophylaxis: Aspirin
Activity:
Out of bed.
PT/OT
Subjective
.
.:
Patient resting comfortably in bed this morning. Patient is sleepy this morning, therefore I did not disturb him.
Vital Signs and Labs
.
Vital Signs and Labs:
Lab Results
12/19/23 05:18
12/19/23 05:18
Temp Pulse Resp BP Pulse Ox
97.4 F 67 16 117/67 99
12/18/23 23:03 12/18/23 23:03 12/18/23 23:03 12/18/23 23:03 12/19/23 00:01
PT 15.3 Sec (11.4-14.6) H 12/17/23 07:48
INR 1.23 12/17/23 07:48
Physical Exam
-
Directed exam of the right lower extremity reveals dressing CDI. Thigh soft and compressible. Calf soft and nontender. Palpable pt and dp pulses.
[2023-12-19 07:35] VITALS: BP 122/57
[2023-12-19] MEDS: CARAFATE 1 GRAM PO ×2 (09:13→20:09)
[2023-12-19] MEDS: MIRALAX 17 GRAMS PO (09:13)
[2023-12-19] MEDS: SINEMET CR 25-100 (EXTENDED RELEASE) 2.5 TABLET PO ×2 (09:14→14:05)
[2023-12-19] MEDS: ASPIRIN ENTERIC COATED 325 MG PO (09:14)
[2023-12-19] MEDS: PROTONIX 40 MG PO ×2 (09:14→20:09)
[2023-12-19] MEDS: ProAmatine 10 MG PO ×3 (09:14→17:09)
[2023-12-19] MEDS: COLACE 100 MG PO ×2 (09:15→20:09)
[2023-12-19] MEDS: NON-FORMULARY ITEM 1 UNIT PO (09:16)
[2023-12-19] MEDS: FLUSH (NSS) 2 FLUSH IV (09:16)
--- NOTE | 2023-12-19 10:28 | PN.CDI ---
CDI
- -
CDI:
Physician Documentation Request
Admit Date: 12/17/23 19:00
Dear Doctor Hector,
Please review the following and provide your response in the progress notes.
Clinical Indicators:
Pt admitted with periprosthetic hip fracture
12/16 OR note noted ' Hematoma was removed from the fracture site....ESTIMATED BLOOD LOSS: 400 mL. Two units of packed red blood cells
transfusion...'
12/17 progress note: 'Acute on chronic chronic normocytic anemia. Status post transfusion during use of packed red blood cells preoperatively'
Based on the above, could you clarify in the progress notes, the appropriate diagnosis, if significant, that supports the above abnormalities and additional evaluation, monitoring and/or treatment rendered:
Acute blood loss anemia
Acute on chronic chronic normocytic anemia
Other
Use of terms such as suspected, likely, concern for, or probable (associated with a specific diagnosis that is being evaluated, monitored, or treated as if it exists) are acceptable and can be coded in the inpatient setting, when documented at the
time of discharge.
Thank you,
Lisy Gage RN, BSN
CDI Specialist
Available via [facility]
Please use your independent medical judgment in providing your response.
[2023-12-19] MEDS: DULCOLAX 10 MG RECTAL (10:32)
--- NOTE | 2023-12-19 11:19 | CM ---
Addendum entered by Therese Cloud RN 12/19/23 12:34:
Additional referrals sent to [facility] and [facility].
Original Note:
Reviewed the chart notes and spoke with the patient's daughter at the bedside. Explained that [facility] has declined the patient due to NWB status, but when is able to weight bear might qualify in the future. Patient's daughter requested referrals be
sent to [facility], [facility], and [facility] (which this CM could not find listed) believe it is a transitional care unit and not acute. Additional one sent to [facility]. CM continues to be available to
patient/family and is monitoring medical plan for needs at discharge.
Plan: Discharge to rehab once bed found.
--- NOTE | 2023-12-19 13:53 | W.PN.HOSP.TC ---
Today's Communication/Plan
-
Physical therapy assessment
Adjustment of analgesic regimen to avoid oversedation
Changing to oral Tylenol w tramadol for moderate to severe pain.
Bowel regimen
IV iron
Follow hemoglobin
Discharge planning
Assessment / Plan
Assessment / Plan
#Periprosthetic Right Hip Fracture
-Was recently hospitalized, received prosthesis in total hip repair
-Had a subsequent fall, not able to weight-bear on right leg
-Status post ORIF of the right periprosthetic femoral fracture on 12/16
Continue nonweightbearing to right lower extremity for 1 to 2 months
DVT prophylaxis aspirin 325 mg x 4 weeks.
Maintain surgical dressing for 7 to 10 days postop.
Adjust analgesic regimen monitoring for oversedation.
Follow hemoglobin
# Acute on chronic chronic normocytic anemia.
Status post transfusion during use of packed red blood cells preoperatively
-Iron studies show mild iron deficiency, will provide IV iron on 12/18
Continue following hemoglobin
#Parkinson's Disease
#Autonomic orthostatic hypotension
-Home medications include Sinemet and Exelon. Unclear clinical benefit from Exelon. Given high propensity for urinary retention, will hold for now.
-Appears to be complicated by autonomic dysfunction/orthostasis
-Currently on midodrine for orthostatic blood pressures
#BPH
-Home medications include dutasteride and tamsulosin
-Suspect tamsulosin may contribute to his orthostasis though stable as of now
#Hypothyroidism
-Unclear etiology, stable on home levothyroxine dose
#Hyperlipidemia
-No known history of ASCVD, treated with ezetimibe
-No known allergy to statin, no indication to start now
#Stage II Stomach Cancer
-Home regimen includes Keytruda for immunotherapy, last Treatment 11/23/2023
-Home medications also include Protonix and sucralfate for bleeding prevention
-Will avoid NSAIDs and unnecessary blood thinners
-Follows with Dr. Gallagher as outpatient
DVT proph: SCDs
Diet: Regular
Code Status: Full Code
Anticipated Discharge: 24 - 48 hours
Subjective/Interval History
-
Date of Service: December 19, 2023
Objective Data
-
Labs:
Laboratory Results
12/19/23
05:18
WBC 9.1
Hgb 9.2 L
Hct 27.4 L
Plt Count 229
Sodium 137
Potassium 4.1
Chloride 104
Carbon Dioxide 25
BUN 13
Creatinine 0.8
Glucose 87
Calcium 7.8 L
Vital Signs:
Vital Signs
Temp Pulse Resp BP Pulse Ox
98.0 F 68 18 122/57 98
12/19/23 07:35 12/19/23 07:35 12/19/23 07:35 12/19/23 07:35 12/19/23 09:11
I&O
12/18/23 12/19/23 12/20/23
06:59 06:59 06:59
Intake Total 1770 / 1770 3500 / 3500
Output Total 935 / 935 1600 / 1600
Balance 835 / 835 1900 / 1900
Physical Exam
-
General: Well Developed and No Apparent Distress
HEENT: Normocephalic, Atraumatic and Moist Mucous Membranes
Respiratory: Clear to Auscultation
Cardiac: Regular Rhythm and S1/S2; Negative Murmur, Rub or Gallop
GI: Soft, Nontender, Nondistended and Normal Bowel Sounds; Negative Organomegaly
Rectal: Deferred by Provider
Musculoskeletal: No Clubbing, No Cyanosis and No Edema
Skin: Negative Rash
Neuro: Awake, Alert and Nonfocal/Grossly Intact
[2023-12-19] MEDS: FERRLECIT 110 MG IV (14:04)
[2023-12-19 15:25] VITALS: BP 117/56
[2023-12-19] MEDS: SINEMET CR 25-100 (EXTENDED RELEASE) 1 TABLET PO (17:10)
[2023-12-19] MEDS: TYLENOL 650 MG PO (20:10)
[2023-12-19 23:21] VITALS: BP 122/59
[2023-12-19] MEDS: FLOMAX 0.4 MG PO (23:32)
[2023-12-19] MEDS: ZETIA 10 MG PO (23:32)
[2023-12-20] MEDS: SYNTHROID 50 MCG PO (05:20)
[2023-12-20] MEDS: TYLENOL 650 MG PO ×3 (05:20→21:35)
[2023-12-20 07:47] VITALS: BP 135/63
[2023-12-20 08:25] LABS: Blood Urea Nitrogen 18 mg/dl (9-20); Calcium 8.3 mg/dl (8.4-10.2); Carbon Dioxide 28 mmol/L (22-30); Chloride 103 mmol/L (98-107); Estimated Creatinine Clearance 64 ml/min; Glucose 101 mg/dl (70-99); Potassium 4.6 mmol/L (3.5-5.1); Sodium 138 mmol/L (135-145); eGFR > 60.00
[2023-12-20 08:39] LABS: Mean Corp Hgb Conc. 33.6 g/dL (33.0-37.0); Mean Corpuscular Hgb 28.2 pg (27.0-31.0); Mean Corpuscular Volume 83.9 fL (80.0-94.0); Mean Platelet Volume 9.2 fL (7.4-10.4); Platelet Count 245 10^3/uL (130-400); Red Cell Dist. Width 17.2 % (11.5-14.5)
[2023-12-20 09:48] LABS: % Basophils 0.4 % (0-2); % Eosinophils 4.1 % (0-6); % Immature Granulocytes 0.5 % (0-0.5); % Lymphocytes 36.2 % (20.5-51.1); % Monocytes 12.9 % (1.7-9.3); % Neutrophils 45.9 % (42.2-75.2); Absolute Eosinophils 0.4 10^3/uL (0-0.7); Absolute Immature Granulocytes 0.1 10^3/uL (0-0.05); Absolute Lymphocytes 3.8 10^3/uL (1.2-3.4); Absolute Monocytes 1.4 10^3/uL (0.1-0.6); Absolute Neutrophils 4.9 10^3/uL (1.4-6.5); Hematocrit 27.7 % (39.0-52.0); Hemoglobin 9.3 g/dL (13.0-18.0); Nucleated Red Blood Cells % 0 % (-); White Blood Cell Count 10.6 10^3/uL (4.8-10.8)
[2023-12-20] MEDS: ASPIRIN ENTERIC COATED 325 MG PO (10:50)
[2023-12-20] MEDS: COLACE 100 MG PO ×2 (10:50→21:31)
[2023-12-20] MEDS: MIRALAX 17 GRAMS PO (10:50)
[2023-12-20] MEDS: CARAFATE 1 GRAM PO ×2 (10:50→21:31)
[2023-12-20] MEDS: NON-FORMULARY ITEM 1 UNIT PO (10:53)
[2023-12-20] MEDS: DESENEX/MITRAZOL/ZEASORB 1 APPLIC TOPICAL ×2 (10:53→21:32)
[2023-12-20] MEDS: ProAmatine PO ×3 (10:57→15:11)
[2023-12-20] MEDS: SINEMET CR 25-100 (EXTENDED RELEASE) 2.5 TABLET PO ×2 (10:59→15:11)
[2023-12-20] MEDS: PROTONIX 40 MG PO ×2 (10:59→21:31)
[2023-12-20 14:45] VITALS: BP 134/68; PULSE 68
--- NOTE | 2023-12-20 15:04 | CM ---
Reviewed the chart notes and spoke with the patient's daughter Bianca via telephone. Discussed the SNFs that were unable to accept. Permission received to sent additional referrals out to area SNFs. Patient's family also discussing taking patient
home with VN services and using a nalini for transferring the patient from bed to wheelchair at home. CM continues to be available to patient/family and is monitoring medical plan for needs at discharge.
Plan: Discharge plans will depend on family's decision for SNF or home with V[facility] services.
[2023-12-20] MEDS: ProAmatine 10 MG PO (15:45)
[2023-12-20 16:00] VITALS: BP 96/45
[2023-12-20 16:44] VITALS: BP 95/51
--- NOTE | 2023-12-20 18:06 | W.PN.HOSP.TC ---
Today's Communication/Plan
-
Continue supportive care
Assessment / Plan
Assessment / Plan
#Periprosthetic Right Hip Fracture
-Was recently hospitalized, received prosthesis in total hip repair
-Had a subsequent fall, not able to weight-bear on right leg
-Status post ORIF of the right periprosthetic femoral fracture on 12/16
Continue nonweightbearing to right lower extremity for 1 to 2 months
DVT prophylaxis aspirin 325 mg x 4 weeks.
Maintain surgical dressing for 7 to 10 days postop.
Adjust analgesic regimen monitoring for oversedation.
Follow hemoglobin
# Acute on chronic chronic normocytic anemia.
Status post transfusion during use of packed red blood cells preoperatively
-Iron studies show mild iron deficiency, will provide IV iron on 12/18
Continue following hemoglobin
#Parkinson's Disease
#Autonomic orthostatic hypotension
-Home medications include Sinemet and Exelon. Unclear clinical benefit from Exelon. Given high propensity for urinary retention, will hold for now.
-Appears to be complicated by autonomic dysfunction/orthostasis
-Currently on midodrine for orthostatic blood pressures
#BPH
-Home medications include dutasteride and tamsulosin
-Suspect tamsulosin may contribute to his orthostasis though stable as of now
#Hypothyroidism
-Unclear etiology, stable on home levothyroxine dose
#Hyperlipidemia
-No known history of ASCVD, treated with ezetimibe
-No known allergy to statin, no indication to start now
#Stage II Stomach Cancer
-Home regimen includes Keytruda for immunotherapy, last Treatment 11/23/2023
-Home medications also include Protonix and sucralfate for bleeding prevention
-Will avoid NSAIDs and unnecessary blood thinners
-Follows with Dr. Gallagher as outpatient
DVT proph: SCDs
Diet: Regular
Code Status: Full Code
Anticipated Discharge: 24 - 48 hours
Subjective/Interval History
-
Date of Service: December 20, 2023
Objective Data
-
Labs:
Laboratory Results
12/20/23
07:19
WBC 10.6
Hgb 9.3 L
Hct 27.7 L
Plt Count 245
Sodium 138
Potassium 4.6
Chloride 103
Carbon Dioxide 28
BUN 18
Creatinine 0.8
Glucose 101 H
Calcium 8.3 L
Vital Signs:
Vital Signs
Temp Pulse Resp BP Pulse Ox
99 F 67 18 95/51 94
12/20/23 16:00 12/20/23 16:44 12/20/23 16:00 12/20/23 16:44 12/20/23 16:00
I&O
12/19/23 12/20/23 12/21/23
06:59 06:59 06:59
Intake Total 3500 / 3500 1470 / 1470 330 / 330
Output Total 1600 / 1600 650 / 650 600 / 600
Balance 1900 / 1900 820 / 820 -270 / -270
Physical Exam
-
General: Well Developed and No Apparent Distress
HEENT: Normocephalic, Atraumatic and Moist Mucous Membranes
Respiratory: Clear to Auscultation
Cardiac: Regular Rhythm and S1/S2; Negative Murmur, Rub or Gallop
GI: Soft, Nontender, Nondistended and Normal Bowel Sounds; Negative Organomegaly
Rectal: Deferred by Provider
Musculoskeletal: No Clubbing, No Cyanosis and No Edema
Skin: Negative Rash
Neuro: Awake, Alert and Nonfocal/Grossly Intact
[2023-12-20] MEDS: SINEMET CR 25-100 (EXTENDED RELEASE) 1 TABLET PO (19:27)
[2023-12-20] MEDS: FLOMAX 0.4 MG PO (21:31)
[2023-12-20] MEDS: ZETIA 10 MG PO (21:31)
[2023-12-20 23:24] VITALS: BP 132/67
[2023-12-21] MEDS: SYNTHROID 50 MCG PO (05:37)
[2023-12-21 07:54] VITALS: BP 140/62
[2023-12-21] MEDS: ASPIRIN ENTERIC COATED 325 MG PO (09:42)
[2023-12-21] MEDS: SINEMET CR 25-100 (EXTENDED RELEASE) 2.5 TABLET PO ×2 (09:42→12:21)
[2023-12-21] MEDS: DESENEX/MITRAZOL/ZEASORB 1 APPLIC TOPICAL ×2 (09:43→21:16)
[2023-12-21] MEDS: MIRALAX 17 GRAMS PO (09:43)
[2023-12-21] MEDS: ProAmatine PO ×2 (09:43→12:22)
[2023-12-21] MEDS: COLACE 100 MG PO ×2 (09:44→21:15)
[2023-12-21] MEDS: NON-FORMULARY ITEM 1 UNIT PO (09:44)
[2023-12-21] MEDS: PROTONIX 40 MG PO ×2 (09:44→21:15)
[2023-12-21] MEDS: CARAFATE 1 GRAM PO ×2 (09:45→21:15)
[2023-12-21 12:00] VITALS: BP 133/64
[2023-12-21] MEDS: TYLENOL 650 MG PO (12:22)
--- NOTE | 2023-12-21 14:40 | W.PN.UPDATE ---
Update Note
Progress Note Update
Patient is alert today and answering some questions.
Patient is in no apparent distress. Leg lengths appear equal. Dressing is intact. Mild to moderate ecchymosis right thigh. Compartment appears supple. No drainage on dressing.
Postop day 4 ORIF right femoral periprosthetic fracture
Patient is to be nonweightbearing on right lower extremity. Pedro and dressing is to be removed in 2 weeks. Will see him for x-rays AP and lateral right femur at that time
--- NOTE | 2023-12-21 15:07 | W.PN.HOSP.TC ---
Addendum entered and electronically signed by Rogerio Young MD 12/22/23 16:57:
Acute blood loss anemia
Original Note:
Today's Communication/Plan
-
Continue supportive care
Physical therapy
Pending disposition options Home versus SNF
Assessment / Plan
Assessment / Plan
#Periprosthetic Right Hip Fracture
-Was recently hospitalized, received prosthesis in total hip repair
-Had a subsequent fall, not able to weight-bear on right leg
-Status post ORIF of the right periprosthetic femoral fracture on 12/16
Continue nonweightbearing to right lower extremity for 1 to 2 months
DVT prophylaxis aspirin 325 mg x 4 weeks.
Maintain surgical dressing for 7 to 10 days postop.
Adjust analgesic regimen monitoring for oversedation.
Follow hemoglobin
# Acute on chronic chronic normocytic anemia.
Status post transfusion during use of packed red blood cells preoperatively
-Iron studies show mild iron deficiency, will provide IV iron on 12/18
Continue following hemoglobin
#Parkinson's Disease
#Autonomic orthostatic hypotension
-Home medications include Sinemet and Exelon. Unclear clinical benefit from Exelon. Given high propensity for urinary retention, will hold for now.
-Appears to be complicated by autonomic dysfunction/orthostasis
-Currently on midodrine for orthostatic blood pressures
#BPH
-Home medications include dutasteride and tamsulosin
-Suspect tamsulosin may contribute to his orthostasis though stable as of now
#Hypothyroidism
-Unclear etiology, stable on home levothyroxine dose
#Hyperlipidemia
-No known history of ASCVD, treated with ezetimibe
-No known allergy to statin, no indication to start now
#Stage II Stomach Cancer
-Home regimen includes Keytruda for immunotherapy, last Treatment 11/23/2023
-Home medications also include Protonix and sucralfate for bleeding prevention
-Will avoid NSAIDs and unnecessary blood thinners
-Follows with Dr. Gallagher as outpatient
DVT proph: SCDs
Diet: Regular
Code Status: Full Code
Anticipated Discharge: 24 - 48 hours
Subjective/Interval History
-
Date of Service: December 21, 2023
Objective Data
-
Vital Signs:
Vital Signs
Temp Pulse Resp BP Pulse Ox
98.8 F 62 17 133/64 96
12/21/23 07:54 12/21/23 12:00 12/21/23 07:54 12/21/23 12:00 12/21/23 07:54
I&O
12/20/23 12/21/23 12/22/23
06:59 06:59 06:59
Intake Total 1470 / 1470 810 / 810
Output Total 650 / 650 600 / 600
Balance 820 / 820 210 / 210
Physical Exam
-
General: Well Developed and No Apparent Distress
HEENT: Normocephalic, Atraumatic and Moist Mucous Membranes
Respiratory: Clear to Auscultation
Cardiac: Regular Rhythm and S1/S2; Negative Murmur, Rub or Gallop
GI: Soft, Nontender, Nondistended and Normal Bowel Sounds; Negative Organomegaly
Rectal: Deferred by Provider
Musculoskeletal: No Clubbing, No Cyanosis and No Edema
Skin: Negative Rash
Neuro: Awake, Alert and Nonfocal/Grossly Intact
--- NOTE | 2023-12-21 15:29 | CM ---
Addendum entered by Therese Cloud RN 12/21/23 15:46:
[facility]
Original Note:
Reviewed the chart notes and spoke with the patient's daughter Bianca via telephone. Per Bianca, family has decided to take patient home [facility] sent and accepted. Patient's family to obtain nalini
lift. Patient's daughter and brother will be in tomorrow to have PT demonstrate bed mobility and transfer techniques as patient's ability allows. Per PT, the homecare PT will need to educate the family on nalini lift in home. CM continues to be
available to patient/family and is monitoring medical plan for needs at discharge.
Plan: Discharge to home with [facility]/OT/ST/homecare aide.
[2023-12-21 15:35] VITALS: BP 138/69; PULSE 62
[2023-12-21 15:42] VITALS: BP 138/69
[2023-12-21] MEDS: ProAmatine 10 MG PO (16:06)
[2023-12-21 16:16] VITALS: BP 138/69; PULSE 62
[2023-12-21] MEDS: SINEMET CR 25-100 (EXTENDED RELEASE) 1 TABLET PO (19:13)
[2023-12-21] MEDS: FLOMAX 0.4 MG PO (21:15)
[2023-12-21] MEDS: ZETIA 10 MG PO (21:15)
[2023-12-21 23:48] VITALS: BP 133/66
[2023-12-22] MEDS: SYNTHROID 50 MCG PO (05:17)
[2023-12-22 07:30] VITALS: BP 144/75
[2023-12-22] MEDS: PROTONIX 40 MG PO ×2 (08:56→19:52)
[2023-12-22] MEDS: ProAmatine 10 MG PO ×3 (08:56→16:08)
[2023-12-22] MEDS: CARAFATE 1 GRAM PO ×2 (08:56→19:52)
[2023-12-22] MEDS: ASPIRIN ENTERIC COATED 325 MG PO (08:56)
[2023-12-22] MEDS: COLACE 100 MG PO ×2 (08:57→19:52)
[2023-12-22] MEDS: SINEMET CR 25-100 (EXTENDED RELEASE) 2.5 TABLET PO ×2 (08:57→12:34)
[2023-12-22] MEDS: MIRALAX 17 GRAMS PO (08:57)
[2023-12-22] MEDS: NON-FORMULARY ITEM 1 UNIT PO (08:57)
[2023-12-22] MEDS: DESENEX/MITRAZOL/ZEASORB 1 APPLIC TOPICAL ×2 (08:58→19:53)
[2023-12-22 09:58] LABS: Hematocrit 31.5 % (39.0-52.0); Hemoglobin 10.3 g/dL (13.0-18.0); Mean Corp Hgb Conc. 32.7 g/dL (33.0-37.0); Mean Corpuscular Hgb 28.3 pg (27.0-31.0); Mean Corpuscular Volume 86.5 fL (80.0-94.0); Mean Platelet Volume 8.9 fL (7.4-10.4); Platelet Count 287 10^3/uL (130-400); Red Blood Cell Count 3.64 10^6/uL (4.70-6.10); Red Cell Dist. Width 17.7 % (11.5-14.5); White Blood Cell Count 11.2 10^3/uL (4.8-10.8)
[2023-12-22 10:50] LABS: % Basophils 0.4 % (0-2); % Eosinophils 5.3 % (0-6); % Immature Granulocytes 0.8 % (0-0.5); % Lymphocytes 35.9 % (20.5-51.1); % Monocytes 10.2 % (1.7-9.3); % Neutrophils 47.4 % (42.2-75.2); Absolute Basophils 0.1 10^3/uL (0-0.2); Absolute Eosinophils 0.6 10^3/uL (0-0.7); Absolute Immature Granulocytes 0.1 10^3/uL (0-0.05); Absolute Monocytes 1.1 10^3/uL (0.1-0.6); Absolute Neutrophils 5.3 10^3/uL (1.4-6.5); Nucleated Red Blood Cells % 0 % (-)
[2023-12-22 12:06] VITALS: BP 129/67; PULSE 68
--- NOTE | 2023-12-22 12:27 | CM ---
Addendum entered by Therese Cloud RN 12/22/23 16:06:
Referral to Palliative Care sent at family's request.
Addendum entered by Therese Cloud RN 12/22/23 15:33:
Plan: Home with [facility]
Medical necessity and transport forms on chart.
Addendum entered by Therese Cloud RN 12/22/23 15:32:
Family has decided to take the patient home. They have purchased an electric nalini lift.
Original Note:
Reviewed the chart notes and spoke with the patient's daughter and son at the bedside. They are now interested in SNF/rehab prior to transitioning back to home. Additional referral sent to [facility], awaiting call back. [facility] offer a semi-private bed. Family would prefer a private room. CM continues to be available to patient/family and is monitoring medical plan for needs at
discharge.
Plan: Discharge to SNF/rehab once bed found. No precert required.
--- NOTE | 2023-12-22 12:29 | WOUNDNOTE ---
R THIGH (ANTERIOR UPPER)
--- NOTE | 2023-12-22 12:47 | WOUNDNOTE ---
[facility] RN note: Patient admitted with
See H&P for complete history.
PMH: from H+P
'Past Medical History: Reports Other
Additional Past Medical History:
Parkinson's Disease
Stomach Cancer
GERD
BPH
Hypothyroidism
Chronic Hypotension
Hyperlipidemia
Past Surgical History: Reports Other
Additional Past Surgical History:
Right Hip Hemiarthroplasty
Hernia Repair'
Wound Location and type/assessment: Patient developed R anterior upper thigh serous blisters intact and broken suspect r/t friction and leg edema. s/p R hip surgery this admission. R hip incision covered with dressing. Skin on heels intact. +3 R
leg, +1-2 edema LLE. WHITNEY Morales confirmed palpable pedal pulses this am. Patient currently sitting in recliner chair with Shakir sling and air chair cushion. He is NWB RLE. Nursing reports sacral skin intact (PCT Srini provided yudi/buttocks care while
getting of bs commode this am).
Appetite: good.
Pressure redistribution devices in place: Centrella Max air bed.
Plan: Non stick dressing applied to R thigh blisters. Updated and confirmed local care R thigh blisters and bilateral knee high Tubigrip as tolerated for LE edema. t/c SPD and ordered size E for LLE and size F for RLE. Discussed with WHITNEY Morales.
Family in room during visit who are very attentive to patient.
Updated care plan and discharge instructions and will follow as needed.
Note to case management of equipment requested for discharge: Added 'evaluate for air mattress in discharge instructions'.
Recommend follow up at wound care center upon discharge if needed.
[2023-12-22 13:09] VITALS: BP 129/67; PULSE 68
[2023-12-22 15:10] VITALS: BP 124/56
--- NOTE | 2023-12-22 15:38 | W.PN.HOSP.TC ---
Addendum entered and electronically signed by Rogerio Young MD 12/22/23 16:43:
Noted with mild bump in WBC at 11.2
Offers no new complaints
Afebrile
Will repeat urinalysis and reflex to culture
Repeat chest x-ray
Follow CBC/BMP in AM.
Original Note:
Today's Communication/Plan
-
Tolerates physical therapy with nonweightbearing on the right
Continue DVT prophylaxis with aspirin
Pain has been controlled.
No evidence for retention.
On bowel regimen.
In discussion with patient's family, decision is to take patient home with help. Arrangements made for discharge on 12/22.
Assessment / Plan
Assessment / Plan
#Periprosthetic Right Hip Fracture
-Was recently hospitalized, received prosthesis in total hip repair
-Had a subsequent fall, not able to weight-bear on right leg
-Status post ORIF of the right periprosthetic femoral fracture on 12/16
Continue nonweightbearing to right lower extremity for 1 to 2 months
DVT prophylaxis aspirin 325 mg x 4 weeks.
Maintain surgical dressing for 7 to 10 days postop.
Adjust analgesic regimen monitoring for oversedation.
Follow hemoglobin
# Acute on chronic chronic normocytic anemia.
Status post transfusion during use of packed red blood cells preoperatively
-Iron studies show mild iron deficiency, will provide IV iron on 12/18
Continue following hemoglobin
#Parkinson's Disease
#Autonomic orthostatic hypotension
-Home medications include Sinemet and Exelon. Unclear clinical benefit from Exelon. Given high propensity for urinary retention, will hold for now.
-Appears to be complicated by autonomic dysfunction/orthostasis
-Currently on midodrine for orthostatic blood pressures
#BPH
-Home medications include dutasteride and tamsulosin
-Suspect tamsulosin may contribute to his orthostasis though stable as of now
#Hypothyroidism
-Unclear etiology, stable on home levothyroxine dose
#Hyperlipidemia
-No known history of ASCVD, treated with ezetimibe
-No known allergy to statin, no indication to start now
#Stage II Stomach Cancer
-Home regimen includes Keytruda for immunotherapy, last Treatment 11/23/2023
-Home medications also include Protonix and sucralfate for bleeding prevention
-Will avoid NSAIDs and unnecessary blood thinners
-Follows with Dr. Gallagher as outpatient
DVT proph: SCDs
Diet: Regular
Code Status: Full Code
Anticipated Discharge: Within 24 hours
Subjective/Interval History
-
Date of Service: December 22, 2023
Objective Data
-
Labs:
Laboratory Results
12/22/23
09:23
WBC 11.2 H
Hgb 10.3 L
Hct 31.5 L
Plt Count 287
Vital Signs:
Vital Signs
Temp Pulse Resp BP Pulse Ox
97.7 F 65 18 124/56 99
12/22/23 15:10 12/22/23 15:10 12/22/23 15:10 12/22/23 15:10 12/22/23 15:10
I&O
12/21/23 12/22/23 12/23/23
06:59 06:59 06:59
Intake Total 810 / 810 1080 / 1080
Output Total 600 / 600 580 / 580
Balance 210 / 210 500 / 500
Physical Exam
-
General: Well Developed and No Apparent Distress
HEENT: Normocephalic, Atraumatic and Moist Mucous Membranes
Respiratory: Clear to Auscultation
Cardiac: Regular Rhythm and S1/S2; Negative Murmur, Rub or Gallop
GI: Soft, Nontender, Nondistended and Normal Bowel Sounds; Negative Organomegaly
Rectal: Deferred by Provider
Musculoskeletal: No Clubbing, No Cyanosis and No Edema
Skin: Negative Rash
Neuro: Awake, Alert and Nonfocal/Grossly Intact
[2023-12-22] MEDS: SINEMET CR 25-100 (EXTENDED RELEASE) 1 TABLET PO (17:06)
--- NOTE | 2023-12-22 17:36 | PTCARENOTE ---
Dr. Young ordered U/A, patient incontinent and unable to obtain sample via urinal, bladder scanned 241mls, Dr. Young notified, awaiting response as to whether a straight cath will be ordered to obtain sample.
[2023-12-22 20:27] LABS: Urine Albumin Negative (Neg - Trace); Urine Bilirubin 1+ (Negative); Urine Character Clear (Clear); Urine Color Yellow; Urine Glucose Negative (Negative); Urine Ketone Trace (Negative); Urine Leukocyte Negative (Negative); Urine Nitrite Negative (Negative); Urine Occult Blood Negative (Negative); Urine Urobilinogen 3+ (Neg - 1+)
[2023-12-22] MEDS: FLOMAX 0.4 MG PO (21:27)
[2023-12-22] MEDS: ZETIA 10 MG PO (21:27)
[2023-12-22 23:45] VITALS: BP 120/63
--- NOTE | 2023-12-23 03:00 | PTCARENOTE ---
received pt from previous RN, pt asleep in bed, assisted RN with changing pt for incont. Pt on bed alarm, call elizondo within reach
[2023-12-23] MEDS: ULTRAM 25 MG PO (06:10)
[2023-12-23] MEDS: SYNTHROID 50 MCG PO (06:11)
[2023-12-23 07:30] VITALS: BP 131/69
[2023-12-23] MEDS: ASPIRIN ENTERIC COATED 325 MG PO (08:57)
[2023-12-23] MEDS: ProAmatine 10 MG PO ×2 (08:59→11:44)
[2023-12-23] MEDS: SINEMET CR 25-100 (EXTENDED RELEASE) 2.5 TABLET PO ×2 (09:01→11:45)
[2023-12-23] MEDS: PROTONIX 40 MG PO (09:01)
[2023-12-23] MEDS: NON-FORMULARY ITEM 1 UNIT PO (09:06)
[2023-12-23] MEDS: COLACE 100 MG PO (09:06)
[2023-12-23] MEDS: MIRALAX 17 GRAMS PO (09:06)
[2023-12-23] MEDS: DESENEX/MITRAZOL/ZEASORB 1 APPLIC TOPICAL (09:38)
[2023-12-23] MEDS: CARAFATE 1 GRAM PO (09:40)
[2023-12-23 09:51] LABS: Blood Urea Nitrogen 15 mg/dl (9-20); Calcium 8.6 mg/dl (8.4-10.2); Carbon Dioxide 27 mmol/L (22-30); Chloride 100 mmol/L (98-107); Estimated Creatinine Clearance 57 ml/min; Glucose 86 mg/dl (70-99); Potassium 4.3 mmol/L (3.5-5.1); Sodium 137 mmol/L (135-145); eGFR > 60.00
[2023-12-23 09:57] LABS: Hematocrit 29.1 % (39.0-52.0); Hemoglobin 9.6 g/dL (13.0-18.0); Mean Corpuscular Hgb 28.6 pg (27.0-31.0); Mean Corpuscular Volume 86.6 fL (80.0-94.0); Mean Platelet Volume 9.1 fL (7.4-10.4); Platelet Count 303 10^3/uL (130-400); Red Blood Cell Count 3.36 10^6/uL (4.70-6.10); Red Cell Dist. Width 18.1 % (11.5-14.5); White Blood Cell Count 10.9 10^3/uL (4.8-10.8)
--- NOTE | 2023-12-23 10:20 | W.PN.HOSP.TC ---
Today's Communication/Plan
-
dc home
OP ortho f/u
Assessment / Plan
Assessment / Plan
# Leukocytosis likely reactive post surgery versus atelectasis
-WBC down trended. Not impressive UA. Remains afebrile.
#Periprosthetic Right Hip Fracture
-Was recently hospitalized, received prosthesis in total hip repair
-Had a subsequent fall, not able to weight-bear on right leg
-Status post ORIF of the right periprosthetic femoral fracture on 12/16
Continue nonweightbearing to right lower extremity for 1 to 2 months
DVT prophylaxis aspirin 325 mg x 4 weeks.
Maintain surgical dressing for 7 to 10 days postop.
Adjust analgesic regimen monitoring for oversedation.
Follow hemoglobin
# Acute on chronic chronic normocytic anemia.
Status post transfusion during use of packed red blood cells preoperatively
Iron studies show mild iron deficiency, will provide IV iron on 12/18
Continue following hemoglobin
#Parkinson's Disease
#Autonomic orthostatic hypotension
-Home medications include Sinemet and Exelon. Unclear clinical benefit from Exelon. Given high propensity for urinary retention, will hold for now.
-Appears to be complicated by autonomic dysfunction/orthostasis
-Currently on midodrine for orthostatic blood pressures
#BPH
-Home medications include dutasteride and tamsulosin
-Suspect tamsulosin may contribute to his orthostasis though stable as of now
#Hypothyroidism
stable on home levothyroxine dose
#Hyperlipidemia
-No known history of ASCVD, treated with ezetimibe
-No known allergy to statin, no indication to start now
#Stage II Stomach Cancer
-Home regimen includes Keytruda for immunotherapy, last Treatment 11/23/2023
-Home medications also include Protonix and sucralfate for bleeding prevention
-Will avoid NSAIDs and unnecessary blood thinners
-Follows with Dr. Gallagher as outpatient
DVT proph: SCDs
Diet: Regular
Code Status: Full Code
d/w with son at bedside.
More than 30 minutes spent in discharge including
Final examination of the patient
Summarizing hospital stay
Instructions for continuing care to all relevant caregivers
Preparation of discharge records, prescriptions, and referral forms
Total time spent (in minutes): 53
Anticipated Discharge: Today
Subjective/Interval History
-
Date of Service: December 23, 2023
Per son at bedside patient looks a lot better today. Remains afebrile.
Discussed chest x-ray results.
Objective Data
-
Labs:
Laboratory Results
12/23/23
08:33
WBC 10.9 H
Hgb 9.6 L
Hct 29.1 L
Plt Count 303
Sodium 137
Potassium 4.3
Chloride 100
Carbon Dioxide 27
BUN 15
Creatinine 0.9
Glucose 86
Calcium 8.6
Vital Signs:
Vital Signs
Temp Pulse Resp BP Pulse Ox
98.2 F 66 16 131/69 98
12/23/23 07:30 12/23/23 08:59 12/23/23 07:30 12/23/23 08:59 12/23/23 07:30
I&O
12/22/23 12/23/23 12/24/23
06:59 06:59 06:59
Intake Total 1080 / 1080 900 / 900
Output Total 580 / 580
Balance 500 / 500 900 / 900
Physical Exam
-
General: Well Developed and No Apparent Distress
HEENT: Normocephalic, Atraumatic and Moist Mucous Membranes
Respiratory: Clear to Auscultation
Cardiac: Regular Rhythm and S1/S2; Negative Murmur, Rub or Gallop
GI: Soft, Nontender, Nondistended and Normal Bowel Sounds; Negative Organomegaly
Rectal: Deferred by Provider
Musculoskeletal: No Clubbing, No Cyanosis and No Edema
Skin: Negative Rash
Neuro: Awake and Nonfocal/Grossly Intact
--- NOTE | 2023-12-23 10:30 | W.DCSUMMARY ---
Discharge Summary
Discharge Data
Date of Admission: 12/17/23
Date of Discharge: 12/23/23
-
Pending Results: No
Hospital Course
88-year-old male past medical Parkinson's disease, autonomic orthostatic hypotension, BPH, hypothyroidism, hyperlipidemia, stage II stomach cancer on immunotherapy, recent hip fracture status post ORIF who was presented to ED after fall at home.
Patient had a hip surgery and went to [facility] At home patient had a mechanical fall. Patient had a hip x-ray which showed acute right periprosthetic proximal femur fracture. Patient subsequently
afterwards underwent the OR for ORIF right periprosthetic femur fracture by Dr. Bassett. Underwent open reduction internal fixation of the right femoral periprosthetic fracture on 12/17/23. Patient had approximately 400 cc of blood loss in the OR
and received 2 units of PRBC. Patient was continue with aspirin for DVT prophylaxis. Patient will need to follow-up with orthopedic as outpatient for surgical dressing change and for postop follow-up. Patient was eval by physical and Occupational
Therapy and SNF was recommended. Family refused and wanted patient to take home with VN.
Discharge Plan
-
Patient Disposition: Home with Home Care
Discharge Diagnosis/Procedures: Periprosthetic Right Hip Fracture
Condition: Good
Diet: Regular
Other Services: VN
Activity Restrictions/Additional Instructions:
Wound Care Instructions
R anterior upper thigh blisters-clean with saline or Vashe wound cleanser, adaptic, silicone border foam, change q 3 days and prn drainage (add alginate after adaptic prn large amount of drainage).
Bilateral knee high Tubigrip as tolerated; remove q hs; reapply q am.
Elevate heels off bed with pillows.
Evaluate for air mattress.
Pressure redistributing chair cushion (i.e. Air chair cushion).
Follow up with orthopedic surgeon.
Follow up at wound care center call if needed, for an appointment.
Referrals:
Saida Bassett I., DO [Active] - in two weeks (call to make appt. )
Jeff Salinas, DO [Family Provider] - in less than 1 week
Prescriptions:
New
docusate sodium 100 mg Capsule
100 mg PO BID Qty: 30 0RF
bisacodyl 10 mg Suppository
10 mg MN DAILYPRN PRN (Reason: constipation) Qty: 12 0RF
tramadol 25 mg tablet
25 mg PO Q8HPRN PRN (Reason: Pain) Qty: 20 0RF
Continued
carbidopa-levodopa 25-100 mg tablet extended release
2.5 tab PO BID@0800,1200
carbidopa-levodopa 25-100 mg tablet extended release
1 tab PO QPM@1800
cholecalciferol (vitamin D3) [Vitamin D3] 50 mcg (2,000 unit) Tablet
50 mcg PO NOON
sucralfate [Carafate] 1 gram Tablet
1 g PO BID@0900,2000
ezetimibe [Zetia] 10 mg Tablet
10 mg PO HS
polyethylene glycol 3350 [HealthyLax] 17 gram Powder In Packet
17 g PO DAILY Qty: 30 0RF
acetaminophen 325 mg Tablet
650 mg PO Q4HPRN PRN (Reason: mild pain/ISIDRO/temp> 100.4F) Qty: 30 0RF
aspirin 325 mg Tablet,Delayed Release (Dr/Ec)
325 mg PO DAILY
pantoprazole 40 mg Tablet,Delayed Release (Dr/Ec)
40 mg PO BID
sennosides-docusate sodium 8.6-50 mg tablet
1 tab PO BIDPRN PRN (Reason: constipation)
levothyroxine 50 mcg tablet
50 mcg PO DAILY
midodrine 10 mg tablet
10 mg PO TID@0800,1200,1600
multivitamin with folic acid [Tab-A-Demetrius] 400 mcg tablet
1 tab PO DAILY
tamsulosin 0.4 mg Capsule
0.4 mg PO HS Qty: 90 0RF
dutasteride [Avodart] 0.5 mg capsule
0.5 mg PO DAILY Qty: 90 0RF
Discontinued
rivastigmine tartrate 3 mg capsule
3 mg PO BID
Discharge Orders:
Discharge Patient (As Directed); Ordered 12/23/23
Ordered By: Adrian Elliott
Discharge Date and Time
Discharge Date/Time: 12/23/23 14:35
Print Language: MONEGASQUE
--- NOTE | 2023-12-23 10:36 | CM ---
Patient seen at bedside with patient son present. patient son indicated patient is for discharge home today. [facility] with [facility] for Follow up. Patient to be seen by pt/ot for further needs assessments. CM will
continue to follow for discharge planning needs.
Plan; home with [facility] pending pt/ot assessment for DME needs.
[2023-12-23 11:22] LABS: % Basophils 0.5 % (0-2); % Immature Granulocytes 1.3 % (0-0.5); % Lymphocytes 38.2 % (20.5-51.1); % Monocytes 10.2 % (1.7-9.3); % Neutrophils 43.8 % (42.2-75.2); Absolute Basophils 0.1 10^3/uL (0-0.2); Absolute Eosinophils 0.7 10^3/uL (0-0.7); Absolute Immature Granulocytes 0.1 10^3/uL (0-0.05); Absolute Lymphocytes 4.2 10^3/uL (1.2-3.4); Absolute Monocytes 1.1 10^3/uL (0.1-0.6); Absolute Neutrophils 4.8 10^3/uL (1.4-6.5); Nucleated Red Blood Cells % 0 % (-)
[2023-12-23 11:43] VITALS: BP 105/50
--- NOTE | 2023-12-23 14:31 | PTCARENOTE ---
Patient discharged to home via [facility] ambulance on stretcher. All discharge instructions reviewed with son. All questions answered. Patient was cleaned and changed prior to discharge. All belongings and discharge paperwork sent with patient.
== END 2023-12-23 14:35 | disposition home health service (06) | DRG 481 ==
LOC: 2 SOUTH 19:00
PROVIDERS: Internal Medicine; Physician Assistant Medical; Student in an Organized Health Care Education/Training Program; ADMITTING PHYSICIAN Internal Medicine; ATTENDING PHYSICIAN Hospitalist; CONSULT PHYSICIAN Orthopaedic Surgery; CONSULT PHYSICIAN Physical Medicine & Rehabilitation; CONSULT PHYSICIAN Specialist; EMERGENCY PHYSICIAN Emergency Medicine; FAMILY PHYSICIAN Family Medicine
PROC: 30233N1 Transfusion of Nonautologous Red Blood Cells into Peripheral Vein, Percutaneous Approach (ICD-10-PCS; 2023-12-16)
PROC: 0QS604Z Reposition Right Upper Femur with Internal Fixation Device, Open Approach (ICD-10-PCS; 2023-12-17)
DX: S72.301A Unspecified fracture of shaft of right femur, initial encounter for closed fracture (principal); C16.9 Malignant neoplasm of stomach, unspecified; M97.01XA Periprosthetic fracture around internal prosthetic right hip joint, initial encounter; E87.1 Hypo-osmolality and hyponatremia; D62 Acute posthemorrhagic anemia; J98.11 Atelectasis; I10 Essential (primary) hypertension; K21.9 Gastro-esophageal reflux disease without esophagitis; E03.9 Hypothyroidism, unspecified; N40.0 Benign prostatic hyperplasia without lower urinary tract symptoms; D72.829 Elevated white blood cell count, unspecified; I95.1 Orthostatic hypotension; E78.5 Hyperlipidemia, unspecified; G20.A1 Parkinson's disease without dyskinesia, without mention of fluctuations; N99.89 Other postprocedural complications and disorders of genitourinary system; Z96.641 Presence of right artificial hip joint; Z60.2 Problems related to living alone; W01.0XXA Fall on same level from slipping, tripping and stumbling without subsequent striking against object, initial encounter; Y93.9 Activity, unspecified; Y92.009 Unspecified place in unspecified non-institutional (private) residence as the place of occurrence of the external cause; Z80.0 Family history of malignant neoplasm of digestive organs; Z74.01 Bed confinement status; Z79.60 Long term (current) use of unspecified immunomodulators and immunosuppressants; Z79.890 Hormone replacement therapy; Z79.82 Long term (current) use of aspirin; Z88.0 Allergy status to penicillin
CPT/HCPCS: 29505; 71045; 73502; 73551; 73552; 76000; 80048; 81003; 82607; 82728; 82746; 83540; 83550; 83735; 85014; 85018; 85025; 85027; 85610; 85730; 86850; 86900; 86901; 86920; 97167; 97530; 97535; 99284; C1713; J2916; P9016

== ENCOUNTER 2024-07-01 12:57 | Emergency (ER) | payer MEDICARE, OTHER, SELFPAY ==
[2024-07-01 13:04] VITALS: BP 96/66
[2024-07-01 13:06] VITALS: BP 99/66
[2024-07-01 13:34] LABS: % Basophils 0.4 % (0-2); % Eosinophils 0.8 % (0-6); % Lymphocytes 22.9 % (20.5-51.1); % Monocytes 13.2 % (1.7-9.3); % Neutrophils 61.7 % (42.2-75.2); Absolute Basophils 0.1 10^3/uL (0-0.2); Absolute Eosinophils 0.1 10^3/uL (0-0.7); Absolute Immature Granulocytes 0.2 10^3/uL (0-0.05); Absolute Lymphocytes 3.8 10^3/uL (1.2-3.4); Absolute Monocytes 2.2 10^3/uL (0.1-0.6); Absolute Neutrophils 10.3 10^3/uL (1.4-6.5); Hematocrit 34.8 % (39.0-52.0); Hemoglobin 11.7 g/dL (13.0-18.0); Mean Corp Hgb Conc. 33.6 g/dL (33.0-37.0); Mean Corpuscular Hgb 29.3 pg (27.0-31.0); Mean Platelet Volume 8.8 fL (7.4-10.4); Nucleated Red Blood Cells % 0 % (-); Platelet Count 279 10^3/uL (130-400); Red Cell Dist. Width 16.6 % (11.5-14.5); White Blood Cell Count 16.7 10^3/uL (4.8-10.8)
--- NOTE | 2024-07-01 13:44 | ED.GENMED ---
History of Present Illness
<KRANTHI Negro - Last Filed: 07/01/24 13:45>
General
Chief Complaint: Cough
Time Seen by Provider: 07/01/24 13:23
<Tex Orozco PA-C - Last Filed: 07/01/24 17:56>
General
Source: family
History of Present Illness
History of Present Illness:
89-year-old male with past medical history of stomach cancer (currently not undergoing any treatment), hypertension, anemia presenting to the emergency department with son who reports that over the last week or so patient has had a continuous
nonproductive cough and some mild shortness of breath, symptoms unchanged today but due to the continuing nature of the symptoms decided to come to the ER for further evaluation. Patient has not had any fevers, chills, rigors, nausea, vomiting,
chest pain, hemoptysis, pleurisy or any other reported concerns. Family notes that patient had been on chemotherapy for the stomach cancer but due to side effects decided to discontinue treatment in its totality. Son does report patient recently
had a PET scan done within the last 2 weeks but is unsure of the results at this time.
Past History
<KRANTHI Negro - Last Filed: 07/01/24 13:45>
Past History
ED Past Medical History: GERD, HTN and Other (Parkinson's disease, Stomach cancer)
ED Past Surgical History: Orthopedic
Patient has exhibited threatening behavior?: No
Social History
Tobacco: Non-smoker
Alcohol: None
Drug: None
Family History
Family History: Cancer (Mother had gastric cancer)
<Tex Orozco PA-C - Last Filed: 07/01/24 17:56>
Past History
ED Past Medical History: Cancer
Social History
Personal:
Living: with family
Review of Systems
<Tex Orozco PA-C - Last Filed: 07/01/24 17:56>
Review of Systems
All Other Systems: ROS reviewed and negative except as documented in HPI and ROS
Phy Exam
<Tex Orozco PA-C - Last Filed: 07/01/24 17:56>
Physical Exam
Physical Exam:
GENERAL: Alert , in no apparent distress, appears older than stated age
HEAD: NCAT
EYE: conjunctiva clear
NECK: Supple
ENT: o/p clr, dry mucous membranes
CARDIAC: Regular rate and rhythm
LUNGS: Somewhat diminished lung sounds throughout ally, no acute respiratory distress, no wheezes/rales/rhonchi
NEUROLOGICAL: Alert and oriented
SKIN: Warm and dry, skin intact.
MUSCULOSKELETAL: well perfused. No edema
PSYCH: Normal and appropriate interaction.
Scores
<Tex Orozco PA-C - Last Filed: 07/01/24 17:56>
Heart Failure Risk
Heart Failure Risk Score: Not Applicable
Heart Score for Chest Pain Patients
STEMI patient?: Not applicable
Withdrawal Assessment of Alcohol
Withdrawal Assessment Completed?: Not applicable
Course
<KRANTHI Negro - Last Filed: 07/01/24 13:45>
Orders/Labs/Results
Orders:
Orders
07/01/24 13:22
Complete Blood Count/With Diff Urgent
Comprehensive Metabolic Panel Urgent
07/01/24 14:11
COVID-19 Antigen Urgent
Source: Nasal Swab
Influenza A+B Rapid Molecular Urgent
DONATO Source: Nasal Swab
Specimen Description:
07/01/24 14:19
CT Chest PE Study Urgent
Comment:
Reason For Exam: cough, SOB, hx cancer
07/01/24 17:24
CefTRIAXone [Rocephin] 1,000 mg IV NOW STA
Doxycycline [Vibramycin] 100 mg PO NOW STA
Abnormal Lab Results
07/01/24
13:22
WBC 16.7 H 10^3/uL
(4.8-10.8)
RBC 4.00 L 10^6/uL
(4.70-6.10)
Hgb 11.7 L g/dL
(13.0-18.0)
Hct 34.8 L %
(39.0-52.0)
RDW 16.6 H %
(11.5-14.5)
Abs Immat Gran (auto) 0.2 H 10^3/uL
(0-0.05)
Absolute Neuts (auto) 10.3 H 10^3/uL
(1.4-6.5)
Absolute Lymphs (auto) 3.8 H 10^3/uL
(1.2-3.4)
Absolute Monos (auto) 2.2 H 10^3/uL
(0.1-0.6)
Immature Gran % 1.0 H %
(0-0.5)
Monocytes % 13.2 H %
(1.7-9.3)
Sodium 133 L mmol/L
(135-145)
Glucose 118 H mg/dl
(70-99)
Total Protein 6.1 L g/dl
(6.3-8.2)
Albumin 3.2 L g/dl
(3.5-5.0)
07/01/24 13:22
07/01/24 13:22
Vital Signs
Initial and Last Documented VS:
Initial Vital Signs
Temp Pulse Resp
99.0 F 82 16
07/01/24 13:03 07/01/24 13:03 07/01/24 13:03
Last Documented Vital Signs
Temp Pulse Resp BP Pulse Ox
99.0 F 72 15 108/60 96
07/01/24 13:06 07/01/24 16:15 07/01/24 16:15 07/01/24 16:00 07/01/24 16:15
<Tex Orozco PA-C - Last Filed: 07/01/24 17:56>
Orders/Labs/Results
Orders:
Orders
07/01/24 13:22
Complete Blood Count/With Diff Urgent
Comprehensive Metabolic Panel Urgent
07/01/24 14:11
COVID-19 Antigen Urgent
Source: Nasal Swab
Influenza A+B Rapid Molecular Urgent
DONATO Source: Nasal Swab
Specimen Description:
07/01/24 14:19
CT Chest PE Study Urgent
Comment:
Reason For Exam: cough, SOB, hx cancer
07/01/24 17:24
CefTRIAXone [Rocephin] 1,000 mg IV NOW STA
Doxycycline [Vibramycin] 100 mg PO NOW STA
Abnormal Lab Results
07/01/24
13:22
WBC 16.7 H 10^3/uL
(4.8-10.8)
RBC 4.00 L 10^6/uL
(4.70-6.10)
Hgb 11.7 L g/dL
(13.0-18.0)
Hct 34.8 L %
(39.0-52.0)
RDW 16.6 H %
(11.5-14.5)
Abs Immat Gran (auto) 0.2 H 10^3/uL
(0-0.05)
Absolute Neuts (auto) 10.3 H 10^3/uL
(1.4-6.5)
Absolute Lymphs (auto) 3.8 H 10^3/uL
(1.2-3.4)
Absolute Monos (auto) 2.2 H 10^3/uL
(0.1-0.6)
Immature Gran % 1.0 H %
(0-0.5)
Monocytes % 13.2 H %
(1.7-9.3)
Sodium 133 L mmol/L
(135-145)
Glucose 118 H mg/dl
(70-99)
Total Protein 6.1 L g/dl
(6.3-8.2)
Albumin 3.2 L g/dl
(3.5-5.0)
07/01/24 13:22
07/01/24 13:22
Vital Signs
Initial and Last Documented VS:
Initial Vital Signs
Temp Pulse Resp
99.0 F 82 16
07/01/24 13:03 07/01/24 13:03 07/01/24 13:03
Last Documented Vital Signs
Temp Pulse Resp BP Pulse Ox
99.0 F 72 15 108/60 96
07/01/24 13:06 07/01/24 16:15 07/01/24 16:15 07/01/24 16:00 07/01/24 16:15
<Tex Orozco PA-C - Last Filed: 07/01/24 17:56>
MDM/Problems Addressed
Differential Diagnosis Includes:
Malignancy, PE, pleural effusion, pneumonia, COVID/flu
MDM/Problems Addressed:
89-year-old male presenting to the emergency department for evaluation of cough x 1 week. Family concern for possible infection. Patient is afebrile and in no acute distress. Pulse ox between 94 and 97% on room air. I reviewed patient's PET
scan from 2 weeks ago which shows potential new area of pulmonary metastases which could be reasoning for the worsening cough. Given his history of cancer will obtain CT of the chest rule out PE. Labs pending. Disposition pending.
Chronic conditions affecting care: Cancer
Acute Exacerbation and/or Progression of Chronic Illness: Cancer
<Tex Orozco PA-C - Last Filed: 07/01/24 17:56>
*Radiology
Radiology exam reviewed: radiology read reviewed
*Pulse Oximetry
Patient hypoxic: no
*Smocking Machine Operator Interpretation
Rate: normal
Rhythm: sinus
*Critical Care Note
Total Time (30-74mins, 75-104mins- exclusive of procedures): Not Applicable
Data Reviewed
Review of Other/Old Records Reveals: Labs, Records and Radiology Studies
<Tex Orozco PA-C - Last Filed: 07/01/24 17:56>
Patient Management
Escalation/DeEscalation of care consider admission/obs:
Patient CT scan shows no acute evidence of pulmonary embolus however there is right upper lobe consolidation likely representing pneumonia. Radiology recommending short interval follow-up CT to ensure resolution. Increased 1.1 cm right hilar lymph
node which is likely reactive secondary to the pneumonia. Patient remains without evidence for hypoxia or respiratory distress and is resting comfortably. He remains hemodynamically stable. I reviewed the workup with patient's son as well as the
patient's daughter via telephone and offered admission given the patient's age and chronic medical condition however they preferred patient be discharged home. They are requesting a one-time dose of IV antibiotics ordered. Will treat here with a
dose of Rocephin and oral doxycycline. Will discharge home with Omnicef and doxycycline. Close follow-up with primary care provider. Labs and CT report provide. Stable for discharge home. Family aware of return precautions.
ED Attending Note
<KRANTHI Negro - Last Filed: 07/01/24 13:45>
-
Portions of this chart may have been created with voice recognition software.� Occasional wrong word or��sound alike� substitutions may have occurred due to the inherent limitations of voice recognition software.
Discharge Plan
Departure
Patient Disposition: Home (Routine Discharge)
Date of Disposition: 07/01/24
Time of Disposition: 17:43
Patient with high blood pressure during this ER visit?: No
Discharge Problem:
Pneumonia
Instructions: Pneumonia, Adult (DC)
Prescriptions:
New
cefdinir 300 mg capsule
300 mg PO BID 10 Days Qty: 19 0RF
doxycycline hyclate 100 mg tablet
100 mg PO BID Qty: 19 0RF
No Action
carbidopa-levodopa 25-100 mg tablet extended release
2.5 tab PO BID@0800,1200
carbidopa-levodopa 25-100 mg tablet extended release
1 tab PO QPM@1800
cholecalciferol (vitamin D3) [Vitamin D3] 50 mcg (2,000 unit) Tablet
50 mcg PO NOON
sucralfate [Carafate] 1 gram Tablet
1 g PO BID@0900,2000
ezetimibe [Zetia] 10 mg Tablet
10 mg PO HS
polyethylene glycol 3350 [HealthyLax] 17 gram Powder In Packet
17 g PO DAILY Qty: 30 0RF
acetaminophen 325 mg Tablet
650 mg PO Q4HPRN PRN (Reason: mild pain/ISIDRO/temp> 100.4F) Qty: 30 0RF
aspirin 325 mg Tablet,Delayed Release (Dr/Ec)
325 mg PO DAILY
pantoprazole 40 mg Tablet,Delayed Release (Dr/Ec)
40 mg PO BID
sennosides-docusate sodium 8.6-50 mg tablet
1 tab PO BIDPRN PRN (Reason: constipation)
levothyroxine 50 mcg tablet
50 mcg PO DAILY
midodrine 10 mg tablet
10 mg PO TID@0800,1200,1600
multivitamin with folic acid [Tab-A-Demetrius] 400 mcg tablet
1 tab PO DAILY
docusate sodium 100 mg Capsule
100 mg PO BID Qty: 30 0RF
bisacodyl 10 mg Suppository
10 mg [place] DAILYPRN PRN (Reason: constipation) Qty: 12 0RF
tramadol 25 mg tablet
25 mg PO Q8HPRN PRN (Reason: Pain) Qty: 20 0RF
tamsulosin 0.4 mg Capsule
0.4 mg PO HS Qty: 90 0RF
dutasteride [Avodart] 0.5 mg capsule
0.5 mg PO DAILY Qty: 90 0RF
Referrals:
Francisco Javier Torres DO [Family Provider] -
Interventions
Interventions:
*Risk Screen - Suicide Last Done: 07/01/24 14:14
*Neglect/Abuse Screening Last Done: 07/01/24 14:14
*ED- Fall Risk Assessment Last Done: 07/01/24 16:50
ED- Pulmonary Assessment Last Done: 07/01/24 14:14
Discharge Date and Time
Print Language: [place]
[2024-07-01 13:48] LABS: ALT (SGPT) < 10 U/L (0-50); AST (SGOT) 24 U/L (17-59); Albumin 3.2 g/dl (3.5-5.0); Alkaline Phosphatase 78 U/L (38-126); Blood Urea Nitrogen 20 mg/dl (9-20); Calcium 8.9 mg/dl (8.4-10.2); Carbon Dioxide 26 mmol/L (22-30); Chloride 99 mmol/L (98-107); Glucose 118 mg/dl (70-99); Sodium 133 mmol/L (135-145); Total Bilirubin 0.8 mg/dl (0.2-1.3); Total Protein 6.1 g/dl (6.3-8.2); eGFR > 60.00
[2024-07-01 14:00] VITALS: BP 102/53
[2024-07-01 14:47] LABS: COVID-19 Antigen Negative (Negative)
[2024-07-01 15:00] VITALS: BP 109/45
[2024-07-01 16:00] VITALS: BP 108/60
[2024-07-01] MEDS: ROCEPHIN 1000 MG IV (17:29)
[2024-07-01] MEDS: VIBRAMYCIN 100 MG PO (17:29)
== END 2024-07-01 18:09 | disposition home or self-care (01) ==
LOC: EMR 12:57
PROVIDERS: Nurse Practitioner; EMERGENCY PHYSICIAN Student in an Organized Health Care Education/Training Program; FAMILY PHYSICIAN Family Medicine
DX: J18.9 Pneumonia, unspecified organism (principal); R05.9 Cough, unspecified; I10 Essential (primary) hypertension; D64.9 Anemia, unspecified; G20.A1 Parkinson's disease without dyskinesia, without mention of fluctuations; K21.9 Gastro-esophageal reflux disease without esophagitis; Z85.028 Personal history of other malignant neoplasm of stomach
CPT/HCPCS: 99284; 96374; 71275; 80053; 85025; 87502; 87811; Q9967